=== PATIENT | male | born 1940 | race Caucasian/White ===

== ENCOUNTER 2019-12-06 11:48 | Observation (INO) ==
[2019-12-06] MEDS ORDERED: SODIUM CHLORIDE 0.9% 500 ML IV ONE (12:02)
[2019-12-06] MEDS ORDERED: ONDANSETRON INJ 2 MG/ML 2 ML VIAL IV STA (12:08)
--- NOTE | 2019-12-06 12:12 | Emergency Department Note ---
ED Provider Note NAME: MARIELA DE LEON Jr AGE: 79 SEX: M : 1940 ARRIVES VIA: Ambulance INFORMANT: [ems, nurses] ED PROVIDER(S): [David Zamora MD] CHIEF COMPLAINT: Syncope and collapse HISTORY OF PRESENT ILLNESS: The patient is a 79-year-old male with severe dementia. He is not verbal at baseline. As per EMS, he was walking down a hallway and collapsed. There may have been a short seizure-like event. He definitely was unresponsive for a period of time, described as less than a minute. There was a time when he was not breathing, described as seconds. No CPR was initiated. As per EMS, the patient vomited around [address] to the ED. They gave 4 mg of IV Zofran. He received 200 cc of IV saline. No further history obtainable as the patient is nonverbal with an altered mental status. REVIEW OF SYSTEMS: Unobtainable given the mental state and confusion. PMHx/PSHx: See Below SOCIAL HISTORY: See Below. PHYSICAL EXAM: GENERAL: Patient is in mild distress, seems anxious. HEENT: No acute trauma, normocephalic atraumatic, mucous membranes moist, no nasal congestion, no scleral icterus. Pupils equal and reactive to light. NECK: No stridor, no adenopathy, no cervical spine step-off, trachea is midline. LUNGS: Clear to auscultation bilaterally, no wheeze, no rhonchi, breath sounds equal. HEART: Without murmurs gallops or rubs, regular rate and rhythm. ABDOMEN: Soft, nontender, bowel sounds positive, no hernias, no peritonitis. EXTREMITIES: No cyanosis or edema, full range of motion of all the joints without pain or difficulty, no signs for acute trauma. NEUROLOGIC: Nonverbal, moves all extremities, he does reach for his blanket and tries to pull the blanket up as a cover. Responds to pain. SKIN: No rash, no jaundice, no diaphoresis. DIFFERENTIAL DIAGNOSIS: Infection, dehydration, metabolic abnormality, hypo/hyperglycemia, electrolyte disturbance, anemia, hypoxia, cardiac sources, intracerebral event, toxicologic, neurologic, intracranial bleeding, C-spine injury, seizure, as well as other pathologies. EMERGENCY DEPARTMENT COURSE/PROCEDURES: ECG: Indication was syncope. There is a normal sinus rhythm with a rate of 60 . The QTc is 438. There is no ST elevation, no PVCs. Continuous Cardiac Monitoring: An order was placed for continuous cardiac monitoring. The monitor shows a rate of 78 with normal sinus rhythm. MEDICAL DECISION MAKING: There is no leukocytosis. The patient has a very mild anemia at 12.2. No coagulopathy. No significant electrolyte abnormality or kidney failure. No concerning liver enzyme elevation. Lactic acid level and procalcitonin levels were both normal making sepsis less likely. Urinalysis did not show infection. Influenza testing was negative. Chest film did not show pneumonia. Brain CT showed no acute bleed or mass-effect. C-spine CT showed no acute fracture. EKG showed a normal sinus rhythm, no acute ischemia. Cardiac enzyme testing x1 is not consistent with acute cardiac injury. The patient was given 1.5 L of IV saline. He was given IV Zofran for nausea. Patient is awake, he is not nonverbal. When he first arrived, he was somewhat sleepy, this has resolved. At this point it is unclear if the patient suffered a syncopal event, a seizure or just collapsed. There was some questionable loss of breathing for a short period of time. Given the sleepiness upon arrival which seems to have cleared, a postictal phase is possible. Given the unknowns, given the syncope and collapse, hospitalization was felt warranted. The cause for his presentation is unclear. I did speak to case management team, I talked with the on-call hospitalist. There was no family at the bedside to discuss results. The patient is severely demented and did not understand his testing results. 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 Beliefs That Will Affect Care: None Current Living Situation: Personal Care Facility Current Living Situation Comment: [place] Other Information That Helps Us Care for You: No Feels Safe at Home: Yes Safety Concerns: Feels Safe At This Time Smoking Status: Never smoker Do You Dip or Chew Tobacco: No ; Second Hand Exposure: No ; Tobacco Cessation Education Requested by Patient: No Hx Alcohol Use: No Hx Substance Use: No Results & Data (ED) Vital Signs Vital Signs - 24 hr 12/06/19 11:53 12/06/19 11:59 12/06/19 12:00 Temperature Temperature Source Pulse Rate 63 62 59 L Pulse Rate from SpO2 Sensor 62 61 59 L Pulse Rhythm Pulse Strength Respiratory Rate 21 23 23 Respiratory Effort / Characteristics Respiratory Depth Respiratory Pattern Blood Pressure 106/45 L 98/49 L Blood Pressure Mean 62 72 Pulse Oximetry 97 97 95 Oxygen Delivery Method Sepsis Recent Fever Within 48 Hours Sepsis Action Taken by Nursing 12/06/19 12:01 12/06/19 12:21 12/06/19 12:28 Temperature 36.9 C Temperature Source Oral Pulse Rate 60 59 L 69 Pulse Rate from SpO2 Sensor 60 58 L Pulse Rhythm Regular Pulse Strength Normal Respiratory Rate 24 19 18 Respiratory Effort / Characteristics Non-Labored Spontaneous Respiratory Depth Normal Respiratory Pattern Regular Blood Pressure 107/53 L 124/56 L Blood Pressure Mean 78 78 Pulse Oximetry 97 97 99 Oxygen Delivery Method Room Air Room Air Sepsis Recent Fever Within 48 Hours No Sepsis Action Taken by Nursing No Action Required 12/06/19 12:30 12/06/19 12:31 12/06/19 13:00 Temperature Temperature Source Pulse Rate 62 74 67 Pulse Rate from SpO2 Sensor 62 64 68 Pulse Rhythm Pulse Strength Respiratory Rate 19 22 18 Respiratory Effort / Characteristics Respiratory Depth Respiratory Pattern Blood Pressure 124/56 L 109/56 L Blood Pressure Mean 90 82 Pulse Oximetry 98 96 95 Oxygen Delivery Method Room Air Room Air Sepsis Recent Fever Within 48 Hours Sepsis Action Taken by Nursing 12/06/19 13:01 12/06/19 13:30 12/06/19 13:31 Temperature Temperature Source Pulse Rate 66 75 78 Pulse Rate from SpO2 Sensor 67 75 78 Pulse Rhythm Pulse Strength Respiratory Rate 17 19 19 Respiratory Effort / Characteristics Respiratory Depth Respiratory Pattern Blood Pressure 125/58 L Blood Pressure Mean 87 Pulse Oximetry 96 98 99 Oxygen Delivery Method Room Air Sepsis Recent Fever Within 48 Hours Sepsis Action Taken by Nursing 12/06/19 14:00 Temperature Temperature Source Pulse Rate Pulse Rate from SpO2 Sensor 96 H Pulse Rhythm Pulse Strength Respiratory Rate Respiratory Effort / Characteristics Respiratory Depth Respiratory Pattern Blood Pressure Blood Pressure Mean Pulse Oximetry 90 Oxygen Delivery Method Sepsis Recent Fever Within 48 Hours Sepsis Action Taken by Assisted Medications Current Medication List: was personally reviewed by me Laboratory Data Attestation: I reviewed the patient's lab results. Result diagrams: 12/06/19 12:07 12/06/19 12:07 Lab Results 12/06/19 12/06/19 12/06/19 Range/Units 12:07 12:07 12:07 WBC 10.15 (4.8-10.8) K/uL RBC 3.89 L (4.7-6.1) M/uL Hgb 12.2 L (14.0-18.0) g/dL Hct 36.5 L (42-52) % MCV 93.8 (80-100) fL MCH 31.4 (25-34) pg MCHC 33.4 (32-36) g/dL RDW Std Deviation 43.6 (36.4-46.3) fL RDW Coeff of Ashkan 12.8 (11.5-14.5) % Plt Count 301 (130-400) K/uL MPV 9.5 (7.4-10.4) fL Immature Gran % (Auto) 0.3 % Neut % (Auto) 60.8 % Lymph % (Auto) 26.0 % [place] % (Auto) 9.1 % Eos % (Auto) 3.4 % Baso % (Auto) 0.4 % Immature Gran # (Auto) 0.03 H (0.00-0.02) K/uL Neut # (Auto) 6.17 (1.4-6.5) K/uL Lymph # (Auto) 2.64 (1.2-3.4) K/uL [place] # (Auto) 0.92 H (0.11-0.59) K/uL Eos # (Auto) 0.35 (0-0.5) K/uL Baso # (Auto) 0.04 (0-0.2) K/uL PT 10.6 (9.0-12.0) Seconds INR 1.0 (0.9-1.1) APTT 23.1 (21.0-31.0) Seconds PTT Ratio 0.8 Sodium 141 (136-145) mmol/L Potassium 3.7 (3.5-5.1) mmol/L Chloride 109 H (98-107) mmol/L Carbon Dioxide 27 (21-32) mmol/L Anion Gap 5.0 (3-11) BUN 20 H (7-18) mg/dl Creatinine 1.06 (0.6-1.4) mg/dl Est Cr Clr Drug Dosing Not Reportable Est GFR ( Amer) 78.1 Est GFR (Non-Af Amer) 67.4 BUN/Creatinine Ratio 18.5 (10-20) Glucose 108 H (70-99) mg/dl Lactate (0.4-2.0) mmol/L Calcium 8.8 (8.5-10.1) mg/dl Magnesium 2.5 H (1.8-2.4) mg/dl Total Bilirubin 0.6 (0.2-1) mg/dl AST 13 L (15-37) U/L ALT 11 L (12-78) U/L Alkaline Phosphatase 64 (45-117) U/L Troponin I < 0.015 (0-0.045) ng/ml Total Protein 6.9 (6.4-8.2) gm/dl Albumin 3.7 (3.4-5.0) gm/dl Globulin 3.2 (2.5-4.0) gm/dl Albumin/Globulin Ratio 1.2 (0.9-2) Procalcitonin (0-0.5) ng/ml Urine Color Urine Appearance (Clear) Urine pH (4.5-7.5) Ur Specific Mead (1.000-1.030) Urine Protein (Negative) Urine Glucose (UA) (Negative) Urine Ketones (Negative) Urine Blood (Negative) Urine Nitrite (Negative) Urine Bilirubin (Negative) Urine Urobilinogen (Negative) Ur Leukocyte Esterase (Negative) Influenza Type A (PCR) (Neg) Influenza Type B (PCR) (Neg) 12/06/19 12/06/19 12/06/19 Range/Units 12:07 12:07 12:22 WBC (4.8-10.8) K/uL RBC (4.7-6.1) M/uL Hgb (14.0-18.0) g/dL Hct (42-52) % MCV (80-100) fL MCH (25-34) pg MCHC (32-36) g/dL RDW Std Deviation (36.4-46.3) fL RDW Coeff of Ashkan (11.5-14.5) % Plt Count (130-400) K/uL MPV (7.4-10.4) fL Immature Gran % (Auto) % Neut % (Auto) % Lymph % (Auto) % [place] % (Auto) % Eos % (Auto) % Baso % (Auto) % Immature Gran # (Auto) (0.00-0.02) K/uL Neut # (Auto) (1.4-6.5) K/uL Lymph # (Auto) (1.2-3.4) K/uL [place] # (Auto) (0.11-0.59) K/uL Eos # (Auto) (0-0.5) K/uL Baso # (Auto) (0-0.2) K/uL PT (9.0-12.0) Seconds INR (0.9-1.1) APTT (21.0-31.0) Seconds PTT Ratio Sodium (136-145) mmol/L Potassium (3.5-5.1) mmol/L Chloride (98-107) mmol/L Carbon Dioxide (21-32) mmol/L Anion Gap (3-11) BUN (7-18) mg/dl Creatinine (0.6-1.4) mg/dl Est Cr Clr Drug Dosing Est GFR ( Amer) Est GFR (Non-Af Amer) BUN/Creatinine Ratio (10-20) Glucose (70-99) mg/dl Lactate 1.8 (0.4-2.0) mmol/L Calcium (8.5-10.1) mg/dl Magnesium (1.8-2.4) mg/dl Total Bilirubin (0.2-1) mg/dl AST (15-37) U/L ALT (12-78) U/L Alkaline Phosphatase (45-117) U/L Troponin I (0-0.045) ng/ml Total Protein (6.4-8.2) gm/dl Albumin (3.4-5.0) gm/dl Globulin (2.5-4.0) gm/dl Albumin/Globulin Ratio (0.9-2) Procalcitonin < 0.05 (0-0.5) ng/ml Urine Color Urine Appearance (Clear) Urine pH (4.5-7.5) Ur Specific [place] (1.000-1.030) Urine Protein (Negative) Urine Glucose (UA) (Negative) Urine Ketones (Negative) Urine Blood (Negative) Urine Nitrite (Negative) Urine Bilirubin (Negative) Urine Urobilinogen (Negative) Ur Leukocyte Esterase (Negative) Influenza Type A (PCR) Neg for Influ A (Neg) Influenza Type B (PCR) Neg for Influ B (Neg) 12/06/19 Range/Units 12:35 WBC (4.8-10.8) K/uL RBC (4.7-6.1) M/uL Hgb (14.0-18.0) g/dL Hct (42-52) % MCV (80-100) fL MCH (25-34) pg MCHC (32-36) g/dL RDW Std Deviation (36.4-46.3) fL RDW Coeff of Ashkan (11.5-14.5) % Plt Count (130-400) K/uL MPV (7.4-10.4) fL Immature Gran % (Auto) % Neut % (Auto) % Lymph % (Auto) % [place] % (Auto) % Eos % (Auto) % Baso % (Auto) % Immature Gran # (Auto) (0.00-0.02) K/uL Neut # (Auto) (1.4-6.5) K/uL Lymph # (Auto) (1.2-3.4) K/uL [place] # (Auto) (0.11-0.59) K/uL Eos # (Auto) (0-0.5) K/uL Baso # (Auto) (0-0.2) K/uL PT (9.0-12.0) Seconds INR (0.9-1.1) APTT (21.0-31.0) Seconds PTT Ratio Sodium (136-145) mmol/L Potassium (3.5-5.1) mmol/L Chloride (98-107) mmol/L Carbon Dioxide (21-32) mmol/L Anion Gap (3-11) BUN (7-18) mg/dl Creatinine (0.6-1.4) mg/dl Est Cr Clr Drug Dosing Est GFR ( Amer) Est GFR (Non-Af Amer) BUN/Creatinine Ratio (10-20) Glucose (70-99) mg/dl Lactate (0.4-2.0) mmol/L Calcium (8.5-10.1) mg/dl Magnesium (1.8-2.4) mg/dl Total Bilirubin (0.2-1) mg/dl AST (15-37) U/L ALT (12-78) U/L Alkaline Phosphatase (45-117) U/L Troponin I (0-0.045) ng/ml Total Protein (6.4-8.2) gm/dl Albumin (3.4-5.0) gm/dl Globulin (2.5-4.0) gm/dl Albumin/Globulin Ratio (0.9-2) Procalcitonin (0-0.5) ng/ml Urine Color Yellow Urine Appearance Clear (Clear) Urine pH 6.0 (4.5-7.5) Ur Specific [place] 1.025 (1.000-1.030) Urine Protein Negative (Negative) Urine Glucose (UA) Negative (Negative) Urine Ketones Trace H (Negative) Urine Blood Negative (Negative) Urine Nitrite Negative (Negative) Urine Bilirubin Negative (Negative) Urine Urobilinogen Negative (Negative) Ur Leukocyte Esterase Negative (Negative) Influenza Type A (PCR) (Neg) Influenza Type B (PCR) (Neg) Administered Medications Discontinued Medications Sodium Chloride (Nss) 500 mls @ 999 mls/hr IV .Q31M ONE Stop: 12/06/19 12:32 Last Infusion: 12/06/19 13:17 Dose: 0 mls/hr Documented by: [id number] Admin: 12/06/19 12:28 Dose: 999 mls/hr Documented by: [id number] Sodium Chloride (Nss 1000ml) 1,000 mls @ 999 mls/hr IV .Q1H1M ONE Stop: 12/06/19 14:18 Last Infusion: 12/06/19 14:54 Dose: 0 mls/hr Documented by: [id number] Admin: 12/06/19 13:30 Dose: 999 mls/hr Documented by: [id number] Ondansetron HCl (Zofran) 4 mg IV NOW STA Stop: 12/06/19 12:09 Last Admin: 12/06/19 12:28 Dose: 4 mg Documented by: [id number] Imaging Data Radiologist's Impression: XR chest 1V portable HISTORY: SEPSIS COMPARISON: Chest CT 05/27/2019. FINDINGS: No pneumothorax. No pleural effusions. The heart is normal in size. There are low lung volumes. No focal lung consolidations to suggest pneumonia. No evidence for pulmonary edema. Questional increased markings within the left lung base may be due to vascular crowding/dependent change from the low lung volumes. IMPRESSION: Low lung volumes. Otherwise, no acute process within the chest. HEAD CT NONCONTRAST CT DOSE: 955.57 mGy.cm HISTORY: confusion, fall TECHNIQUE: Multiaxial CT images of the head were performed without the use of intravenous contrast. Automated exposure control was utilized for this study. A dose lowering technique was utilized adhering to the principles of ALARA. Comparison: Head CT 09/10/2019. Findings: Near complete opacification of the right sphenoid sinus with an associated fluid level. This has progressed in the interval. The mastoid air lynne ls are clear. The calvarium and skull base are intact. There is no mass, hematoma, midline shift, acute infarct. White matter hypodensity is nonspecific but suggestive of microvascular ischemic change. The ventricles and sulci demonstrate mild age-related involutional changes. 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 Impression: 1. No acute intracranial abnormality. 2. Acute right sphenoid sinusitis. This has progressed in the interval. CT cervical spine wo con CLINICAL HISTORY: 79 years-old Male presenting with fall, confusion. TECHNIQUE: Multidetector CT of the cervical spine was performed without the use of intravenous contrast. IV contrast: None. One or more dose lowering techniques were used consistent with the principles of ALARA (as low as reasonably achievable), including automatic exposure control, mA or kV adjustment to individual patient size, and/or use of iterative reconstruction. COMPARISON: 09/10/2019. CT DOSE (mGy.cm): The estimated cumulative dose is 955.57. FINDINGS: Lumber Scaler topogram: Unremarkable. Straightening of normal cervical lordosis likely due to multilevel degenerative changes. Trace anterolisthesis of C4 on C5. 3 mm of grade 1 anterolisthesis of C5 on C6. Alignment is unchanged. Vertebral body heights maintained. Multilevel intervertebral disc height loss, which is moderate to severe at several levels. Disc osteophyte complexes noted to varying degrees at nearly every level. Overall mild posterior spondylitic spurring is noted. Facet arthropathy and uncovertebral hypertrophy result in varying degrees of osseous neural foraminal narrowing. Mild degenerative changes of the atlantodental articulation. Visualized portion of the skull base intact. Prominent cerumen noted in the external auditory canals. Lung apices clear. Paraspinal soft tissues within normal limits. IMPRESSION: 1. No acute osseous injury of the cervical spine. 2. Multilevel degenerative changes. Blood Pressure Blood Pressure Findings: Elevated blood pressure Blood Pressure Disposition: further management by hospitalist Discharge Plan Visit Data *Final* Discharge Date/Time: 12/06/19 15:07 Chief Complaint: Seizure ED Provider: David Zamora Discharge Problem: Syncope, Collapse, Altered mental status, Vomiting Patient Disposition: Admitted As Inpatient Discharge Instructions Interventions: ED Discharge Assessment Last Done: 12/06/19 15:07 Discharge Problem: Syncope Qualifiers: Syncope type: unspecified Qualified Code(s): R55 - Syncope and collapse Altered mental status Qualifiers: Altered mental status type: unspecified Qualified Code(s): R41.82 - Altered mental status, unspecified Vomiting Qualifiers: Vomiting type: unspecified Vomiting Intractability: non-intractable Nausea presence: unspecified Qualified Code(s): R11.10 - Vomiting, unspecified
[2019-12-06 12:17] LABS: Basophils # (auto) 0.04 K/uL (0-0.2); Basophils % (auto) 0.4 %; Eosinophils # (auto) 0.35 K/uL (0-0.5); Eosinophils % (auto) 3.4 %; Hematocrit (blood only) 36.5 % (42-52); Hemoglobin 12.2 g/dL (14.0-18.0); Immature Granulocytes # (auto) 0.03 K/uL (0.00-0.02); Immature Granulocytes % (auto) 0.3 %; Lymphocytes # (auto) 2.64 K/uL (1.2-3.4); Mean Corpuscular Hemoglobin 31.4 pg (25-34); Mean Corpuscular Hgb Conc 33.4 g/dL (32-36); Mean Corpuscular Volume 93.8 fL (80-100); Mean Platelet Volume 9.5 fL (7.4-10.4); Monocytes # (auto) 0.92 K/uL (0.11-0.59); Monocytes % (auto) 9.1 %; Neutrophils # (auto) 6.17 K/uL (1.4-6.5); Neutrophils % (auto) 60.8 %; Platelet Count 301 K/uL (130-400); RDW Coefficient of Variation 12.8 % (11.5-14.5); RDW Standard Deviation 43.6 fL (36.4-46.3); Red Blood Count 3.89 M/uL (4.7-6.1); White Blood Count 10.15 K/uL (4.8-10.8)
[2019-12-06 12:33] LABS: Alanine Aminotransferase 11 U/L (12-78); Albumin Level 3.7 gm/dl (3.4-5.0); Aspartate Aminotransferase 13 U/L (15-37); BUN Creatinine Ratio 18.5 (10-20); Blood Urea Nitrogen 20 mg/dl (7-18); Calcium 8.8 mg/dl (8.5-10.1); Carbon Dioxide 27 mmol/L (21-32); Chloride 109 mmol/L (98-107); Est GFR (African American) 78.1; Est GFR (Non-African American) 67.4; Glucose 108 mg/dl (70-99); Magnesium 2.5 mg/dl (1.8-2.4); Potassium 3.7 mmol/L (3.5-5.1); Sodium 141 mmol/L (136-145)
[2019-12-06 12:37] LABS: Partial Thromboplastin Ratio 0.8; Partial Thromboplastin Time 23.1 Seconds (21.0-31.0); Prothrombin Time 10.6 Seconds (9.0-12.0)
[2019-12-06 12:38] LABS: Albumin Globulin Ratio 1.2 (0.9-2); Alkaline Phosphatase 64 U/L (45-117); Bilirubin,Total 0.6 mg/dl (0.2-1); Globulin 3.2 gm/dl (2.5-4.0); Total Protein 6.9 gm/dl (6.4-8.2); Troponin I < 0.015 ng/ml (0-0.045)
--- NOTE | 2019-12-06 12:39 | XRay Report ---
XR chest 1V portable HISTORY: SEPSIS COMPARISON: Chest CT 05/27/2019. FINDINGS: No pneumothorax. No pleural effusions. The heart is normal in size. There are low lung volu mes. No focal lung consolidations to suggest pneumonia. No evidence for pulmonary edema. Questional i ncreased markings within the left lung base may be due to vascular crowding/dependent change from the low lung volumes. IMPRESSION: Low lung volumes. Otherwise, no acute process within the chest. ACT 112: Negative or not required by law. Electronically signed by: Mike Hudson M.D. 12/06/2019 12:37 PM
--- NOTE | 2019-12-06 12:52 | CT Scan Report ---
HEAD CT NONCONTRAST CT DOSE: 955.57 mGy.cm HISTORY: confusion, fall TECHNIQUE: Multiaxial CT images of the head were performed without the use of intravenous contrast. A utomated exposure control was utilized for this study. A dose lowering technique was utilized adheri ng to the principles of ALARA. Comparison: Head CT 09/10/2019. Findings: Near complete opacification of the right sphenoid sinus with an associated fluid level. Thi s has progressed in the interval. The mastoid air cells are clear. The calvarium and skull base are i ntact. There is no mass, hematoma, midline shift, acute infarct. White matter hypodensity is nonspeci fic but suggestive of microvascular ischemic change. The ventricles and sulci demonstrate mild age-re lated involutional changes. 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 Impression: 1. No acute intracranial abnormality. 2. Acute right sphenoid sinusitis. This has progressed in the interval. ACT 112: Negative or not required by law. Electronically signed by: Mike Hudson M.D. 12/06/2019 12:50 PM
--- NOTE | 2019-12-06 12:54 | CT Scan Report ---
CT cervical spine wo con CLINICAL HISTORY: 79 years-old Male presenting with fall, confusion. TECHNIQUE: Multidetector CT of the cervical spine was performed without the use of intravenous contra st. IV contrast: None. One or more dose lowering techniques were used consistent with the principles of ALARA (as low as reasonably achievable), including automatic exposure control, mA or kV adjustment to individual patient size, and/or use of iterative reconstruction. COMPARISON: 09/10/2019. CT DOSE (mGy.cm): The estimated cumulative dose is 955.57. FINDINGS: Curtain Cutter topogram: Unremarkable. Straightening of normal cervical lordosis likely due to multilevel degenerative changes. Trace glory listhesis of C4 on C5. 3 mm of grade 1 anterolisthesis of C5 on C6. Alignment is unchanged. Vertebral body heights maintained. Multilevel intervertebral disc height loss, which is moderate to severe at several levels. Disc osteophyte complexes noted to varying degrees at nearly every level. Overall mil d posterior spondylitic spurring is noted. Facet arthropathy and uncovertebral hypertrophy result in varying degrees of osseous neural foraminal narrowing. Mild degenerative changes of the atlantodental articulation. Visualized portion of the skull base intact. Prominent cerumen noted in the external a uditory canals. Lung apices clear. Paraspinal soft tissues within normal limits. IMPRESSION: 1. No acute osseous injury of the cervical spine. 2. Multilevel degenerative changes. ACT 112: Negative or not required by law. Electronically signed by: Antonino Bob M.D. 12/06/2019 12:52 PM
[2019-12-06 13:14] LABS: Influenza A virus by PCR Neg for Influ A (Neg); Influenza B virus by PCR Neg for Influ B (Neg)
[2019-12-06 13:15] LABS: Appearance Urine Clear (Clear); Bilirubin Urine Negative (Negative); Blood Urine Negative (Negative); Color Urine Yellow; Glucose Urine UA Negative (Negative); Ketones Urine Trace (Negative); Leukocyte Esterase Urine Negative (Negative); Nitrite Urine Negative (Negative); Protein Urine Negative (Negative); Specific Gravity Urine 1.025 (1.000-1.030); Urobilinogen Urine Negative (Negative)
[2019-12-06] MEDS ORDERED: SODIUM CHLORIDE 0.9% 1000ML 1,000 ML IV ONE (13:18)
--- NOTE | 2019-12-06 14:32 | Electrocardiogram Report ---
Test Reason : Blood Pressure : / mmHG Vent. Rate : 060 BPM Atrial Rate : 060 BPM P-R Int : 160 ms QRS Dur : 080 ms QT Int : 438 ms P-R-T Axes : 069 047 056 degrees QTc Int : 438 ms Normal sinus rhythm Normal ECG When compared with ECG of 16-AUG-2019 10:40, No significant change was found Confirmed by Jason Ceja [id number]) on 12/06/2019 2:32:13 PM Referred By: Confirmed By:Scar Ceja
[2019-12-06] MEDS ORDERED: PNEUMOCOCCAL POLYSACCHARIDES 25 MCG/0.5 ML VIAL/SYR IM ONE (14:41)
[2019-12-06] MEDS ORDERED: PNEUMOCOCCAL ADMINISTRATION CHARGE ONE (14:41)
[2019-12-06] MEDS ORDERED: INFLUENZA ADMINISTRATION CHARGE ONE (14:41)
[2019-12-06] MEDS ORDERED: INFLUENZA VACCINE HIGH DOSE 65+ 0.5 ML SYR IM ONE (14:41)
--- NOTE | 2019-12-06 14:50 | History & Physical Report ---
Date of Service December 06, 2019 Assessment & Plan (1) Acute metabolic encephalopathy: - Presented with increased confusion & fall/collapse at [facility]. - U/a negative; BC pending. - CXR and CT cervical spine negative. - Head CT did show sinusitis -- starting IV abx as noted below; brain MRI is pending. - B1/Folate level in the morning. (2) Collapse: - Possibly related to syncopal episode in setting of dehydration vs. cardiac source vs. seizure activity vs. CVA vs. orthostatic hypotension. - Head CT negative, brain MRI pending to evaluate for brain filemon vs. CVA vs. other. - Trend trop q6hr to evaluate for cardiac source; limited echo also pending to evaluate for valvular abnormalities, wall motion abnormalities. - Will consult neuro, consider addition of EEG. - H/o orthostasis -- orthostatic vital signs pending. - IV fluids at 80 cc/hr (low threshold to d/c if TTE shows evidence of CHF) - PT/OT/Speech therapy evaluation. - Non-verbal at baseline in setting of dementia, therefore it is very difficult to obtain accurate history or R.O.S. (3) Dementia: - Parkinson's related dementia; his reports he will intermittently answer questions appropriately but is nonverbal for the most part at [facility]. - Continue Aricept, Sinemet and Pimavanserin (non-formulary, will need to bring from [place]) as prescribed. - Re-orient frequently; will likely develop acute hospital delirium during this admission. (4) Sinusitis: - Acute right sphenoid sinusitis noted on CT head. - Will start Ceftriaxone IV for empiric coverage. (5) Prostate cancer: - H/o prostate cancer, lung metastasis. - Follows with urology, s/p GnRH agonists, radiation therapy and XRT in 2009. - Continue Bicalutamide daily as prescribed. Also receives Eligard injections [id number]. (6) Hyperlipidemia: - Continue Pravastatin & ASA as prescribed. (7) Anemia: - Hgb baseline ~12. - Monitor CBC daily. (8) Dehydration: - Elevated BUN noted on discharge. - NS at 80 cc/hr; also received IV fluids in the ER. - Repeat BMP daily. (9) DVT prophylaxis: - SCDs; hold pharmacologic ppx due to recent fall. Dispo: Med/surg with tele; discharge pending work up as noted above. History of Present Illness Chief Complaint: Confusion, fall Primary Care Provider: [facility] Mr. Bender is a 79 year old male who resides at [facility]; he presented following a fall this morning. Patient has baseline dementia and is non-verbal, therefore he cannot provide history. Per ER physician, he had multiple witnesses at [facility] but they were mostly other residents. Discussed episode with nursing instructor at [facility]. Patient was noted to have stiffening of his body, therefore nurses lowered him to the ground in the common lounge. He developed seizure like activity (shaking of entire body) after being lowered to the ground and was not breathing for a period of 10 seconds. He was flipped onto his back and started breathing again. Patient developed nausea/vomiting following episode. EMS was called for evaluation; he did have vomiting in the ambulance during transport. Patient was very lethargic during transport but is now alert, not oriented (baseline for him). ER course: CXR, Head CT and Cervical spine CT were all negative. Lab work showed mild dehydration. Trop was negative along with EKG for possible ischemia. Procal was <0.05. U/a negative for infection. Blood cultures are pending. He will be admitted for evaluation of altered mental status with possible fall/syncopal episode. Allergies Allergy/AdvReac Type Severity Reaction Status Date / Time No Known Allergies Allergy Verified 11/07/19 11:55 Home Medications Home Medications Medication Instructions Recorded Confirmed Type aspirin 81 mg tablet,delayed 81 mg PO PM tab 05/28/19 12/06/19 History release cholecalciferol (vitamin D3) 25 1,000 units PO QAM cap 05/28/19 12/06/19 History mcg (1,000 unit) capsule cyanocobalamin (vitamin B-12) 1,000 mcg PO QAM #90 tab 05/28/19 12/06/19 History 1,000 mcg tablet metronidazole 0.75 % topical cream 1 appln TOP QAM 05/28/19 12/06/19 History pimavanserin 34 mg capsule 34 mg PO QAM 05/28/19 12/06/19 History pravastatin 40 mg tablet 40 mg PO PM tab 05/28/19 12/06/19 History psyllium husk 3.4 gram/5.4 gram 3.4 g PO QAM gm 05/28/19 12/06/19 History oral powder carbidopa 25 mg-levodopa 100 mg 1.5 tab PO TID 90 Days #405 tab 07/08/19 12/06/19 Rx tablet acetaminophen 500 mg tablet 500 - 1,000 mg PO TID PRN #90 tab 08/05/19 12/06/19 Rx bicalutamide 50 mg PO QAM 08/16/19 12/06/19 History pramipexole 1.5 mg PO QAM 08/16/19 12/06/19 History donepezil [Aricept] 5 mg PO HS 12/06/19 12/06/19 History Past Med/Surg History Medical History (Updated 12/06/19 @ 15:50 by Leslie Sy PA-C) Arthritis (Acute) Dementia (Acute) Hyperlipidemia (Chronic) Lung cancer (Acute) Parkinson's disease (Chronic) Prostate cancer (Acute) Rosacea (Acute) Secondary cancer of lung (Acute) Urinary incontinence (Acute) Vision problem (Acute) Surgical History (Updated 12/07/19 @ 00:54 by Hanny Navarro MD) History of appendectomy History of cataract surgery History of cholecystectomy History of hernia repair History of intestinal surgery Family History Mother Diabetes Cardiac disorder Gallbladder disease Father Cardiac disorder Diabetes Sister Hypertension Colon cancer Social History Preferred Language: Kazakh Communication Ability: nonverbal Substance Abuse Services Director Required: No Beliefs That Will Affect Care: None Current Living Situation: Personal Care Facility Current Living Situation Comment: [facility] Other Information That Helps Us Care for You: No Feels Safe at Home: Yes Safety Concerns: Feels Safe At This Time Smoking Status: Never smoker Do You Dip or Chew Tobacco: No ; Second Hand Exposure: No ; Tobacco Cessation Education Requested by Patient: No Hx Alcohol Use: No Hx Substance Use: No Review of Systems Review of Systems: Unobtainable due to cognitive status Physical Exam Physical Exam: General: Chronically ill appearing elderly male, in no acute distress. HEENT: NC/AT; PERRLA with EOMI; [place] conjunctiva, MMM. No erythema of posterior pharynx Neck: Supple and nontender Cardiac: Tachycardic Lungs: CTA bilaterally Abdomen: Bowel normoactive X 4; Nontender to palpation Rectal: Deferred : Deferred Back: NO spinous tenderness Extremities: Warm. No edema present Neuro: Alert but not oriented to person or place; is nonverbal. Cannot complete full neuro exam. Skin: No rash Results & Data Vital Signs (Past 12 Hours) Vital Signs Temp Pulse Resp BP Pulse Ox 12/06/19 14:00 90 12/06/19 13:31 78 19 99 12/06/19 13:30 75 19 125/58 L 98 12/06/19 13:01 66 17 96 12/06/19 13:00 67 18 109/56 L 95 12/06/19 12:31 74 22 96 12/06/19 12:30 62 19 124/56 L 98 12/06/19 12:28 36.9 C 69 18 124/56 L 99 12/06/19 12:21 59 L 19 107/53 L 97 12/06/19 12:01 60 24 97 12/06/19 12:00 59 L 23 98/49 L 95 12/06/19 11:59 62 23 97 12/06/19 11:53 63 21 106/45 L 97 Laboratory Results 12/06/19 12/06/19 12/06/19 Range/Units 12:35 12:22 12:07 WBC (4.8-10.8) K/uL RBC (4.7-6.1) M/uL Hgb (14.0-18.0) g/dL Hct (42-52) % MCV (80-100) fL MCH (25-34) pg MCHC (32-36) g/dL RDW Std Deviation (36.4-46.3) fL RDW Coeff of Ashkan (11.5-14.5) % Plt Count (130-400) K/uL MPV (7.4-10.4) fL Immature Gran % (Auto) % Neut % (Auto) % Lymph % (Auto) % [place] % (Auto) % Eos % (Auto) % Baso % (Auto) % Immature Gran # (Auto) (0.00-0.02) K/uL Neut # (Auto) (1.4-6.5) K/uL Lymph # (Auto) (1.2-3.4) K/uL [place] # (Auto) (0.11-0.59) K/uL Eos # (Auto) (0-0.5) K/uL Baso # (Auto) (0-0.2) K/uL PT (9.0-12.0) Seconds INR (0.9-1.1) APTT (21.0-31.0) Seconds PTT Ratio Sodium (136-145) mmol/L Potassium (3.5-5.1) mmol/L Chloride (98-107) mmol/L Carbon Dioxide (21-32) mmol/L Anion Gap (3-11) BUN (7-18) mg/dl Creatinine (0.6-1.4) mg/dl Est Cr Clr Drug Dosing Est GFR ( Amer) Est GFR (Non-Af Amer) BUN/Creatinine Ratio (10-20) Glucose (70-99) mg/dl Lactate (0.4-2.0) mmol/L Calcium (8.5-10.1) mg/dl Magnesium (1.8-2.4) mg/dl Total Bilirubin (0.2-1) mg/dl AST (15-37) U/L ALT (12-78) U/L Alkaline Phosphatase (45-117) U/L Troponin I (0-0.045) ng/ml Total Protein (6.4-8.2) gm/dl Albumin (3.4-5.0) gm/dl Globulin (2.5-4.0) gm/dl Albumin/Globulin Ratio (0.9-2) Procalcitonin < 0.05 (0-0.5) ng/ml Urine Color Yellow Urine Appearance Clear (Clear) Urine pH 6.0 (4.5-7.5) Ur Specific [place] 1.025 (1.000-1.030) Urine Protein Negative (Negative) Urine Glucose (UA) Negative (Negative) Urine Ketones Trace H (Negative) Urine Blood Negative (Negative) Urine Nitrite Negative (Negative) Urine Bilirubin Negative (Negative) Urine Urobilinogen Negative (Negative) Ur Leukocyte Esterase Negative (Negative) Influenza Type A (PCR) Neg for Influ A (Neg) Influenza Type B (PCR) Neg for Influ B (Neg) 12/06/19 12/06/19 12/06/19 Range/Units 12:07 12:07 12:07 WBC (4.8-10.8) K/uL RBC (4.7-6.1) M/uL Hgb (14.0-18.0) g/dL Hct (42-52) % MCV (80-100) fL MCH (25-34) pg MCHC (32-36) g/dL RDW Std Deviation (36.4-46.3) fL RDW Coeff of Ashkan (11.5-14.5) % Plt Count (130-400) K/uL MPV (7.4-10.4) fL Immature Gran % (Auto) % Neut % (Auto) % Lymph % (Auto) % [place] % (Auto) % Eos % (Auto) % Baso % (Auto) % Immature Gran # (Auto) (0.00-0.02) K/uL Neut # (Auto) (1.4-6.5) K/uL Lymph # (Auto) (1.2-3.4) K/uL [place] # (Auto) (0.11-0.59) K/uL Eos # (Auto) (0-0.5) K/uL Baso # (Auto) (0-0.2) K/uL PT 10.6 (9.0-12.0) Seconds INR 1.0 (0.9-1.1) APTT 23.1 (21.0-31.0) Seconds PTT Ratio 0.8 Sodium 141 (136-145) mmol/L Potassium 3.7 (3.5-5.1) mmol/L Chloride 109 H (98-107) mmol/L Carbon Dioxide 27 (21-32) mmol/L Anion Gap 5.0 (3-11) BUN 20 H (7-18) mg/dl Creatinine 1.06 (0.6-1.4) mg/dl Est Cr Clr Drug Dosing Not Reportable Est GFR ( Amer) 78.1 Est GFR (Non-Af Amer) 67.4 BUN/Creatinine Ratio 18.5 (10-20) Glucose 108 H (70-99) mg/dl Lactate 1.8 (0.4-2.0) mmol/L Calcium 8.8 (8.5-10.1) mg/dl Magnesium 2.5 H (1.8-2.4) mg/dl Total Bilirubin 0.6 (0.2-1) mg/dl AST 13 L (15-37) U/L ALT 11 L (12-78) U/L Alkaline Phosphatase 64 (45-117) U/L Troponin I < 0.015 (0-0.045) ng/ml Total Protein 6.9 (6.4-8.2) gm/dl Albumin 3.7 (3.4-5.0) gm/dl Globulin 3.2 (2.5-4.0) gm/dl Albumin/Globulin Ratio 1.2 (0.9-2) Procalcitonin (0-0.5) ng/ml Urine Color Urine Appearance (Clear) Urine pH (4.5-7.5) Ur Specific [place] (1.000-1.030) Urine Protein (Negative) Urine Glucose (UA) (Negative) Urine Ketones (Negative) Urine Blood (Negative) Urine Nitrite (Negative) Urine Bilirubin (Negative) Urine Urobilinogen (Negative) Ur Leukocyte Esterase (Negative) Influenza Type A (PCR) (Neg) Influenza Type B (PCR) (Neg) 12/06/19 Range/Units 12:07 WBC 10.15 (4.8-10.8) K/uL RBC 3.89 L (4.7-6.1) M/uL Hgb 12.2 L (14.0-18.0) g/dL Hct 36.5 L (42-52) % MCV 93.8 (80-100) fL MCH 31.4 (25-34) pg MCHC 33.4 (32-36) g/dL RDW Std Deviation 43.6 (36.4-46.3) fL RDW Coeff of Ashkan 12.8 (11.5-14.5) % Plt Count 301 (130-400) K/uL MPV 9.5 (7.4-10.4) fL Immature Gran % (Auto) 0.3 % Neut % (Auto) 60.8 % Lymph % (Auto) 26.0 % [place] % (Auto) 9.1 % Eos % (Auto) 3.4 % Baso % (Auto) 0.4 % Immature Gran # (Auto) 0.03 H (0.00-0.02) K/uL Neut # (Auto) 6.17 (1.4-6.5) K/uL Lymph # (Auto) 2.64 (1.2-3.4) K/uL [place] # (Auto) 0.92 H (0.11-0.59) K/uL Eos # (Auto) 0.35 (0-0.5) K/uL Baso # (Auto) 0.04 (0-0.2) K/uL PT (9.0-12.0) Seconds INR (0.9-1.1) APTT (21.0-31.0) Seconds PTT Ratio Sodium (136-145) mmol/L Potassium (3.5-5.1) mmol/L Chloride (98-107) mmol/L Carbon Dioxide (21-32) mmol/L Anion [place] (3-11) BUN (7-18) mg/dl Creatinine (0.6-1.4) mg/dl Est Cr Clr Drug Dosing Est GFR ( Amer) Est GFR (Non-Af Amer) BUN/Creatinine Ratio (10-20) Glucose (70-99) mg/dl Lactate (0.4-2.0) mmol/L Calcium (8.5-10.1) mg/dl Magnesium (1.8-2.4) mg/dl Total Bilirubin (0.2-1) mg/dl AST (15-37) U/L ALT (12-78) U/L Alkaline Phosphatase (45-117) U/L Troponin I (0-0.045) ng/ml Total Protein (6.4-8.2) gm/dl Albumin (3.4-5.0) gm/dl Globulin (2.5-4.0) gm/dl Albumin/Globulin Ratio (0.9-2) Procalcitonin (0-0.5) ng/ml Urine Color Urine Appearance (Clear) Urine pH (4.5-7.5) Ur Specific [place] (1.000-1.030) Urine Protein (Negative) Urine Glucose (UA) (Negative) Urine Ketones (Negative) Urine Blood (Negative) Urine Nitrite (Negative) Urine Bilirubin (Negative) Urine Urobilinogen (Negative) Ur Leukocyte Esterase (Negative) Influenza Type A (PCR) (Neg) Influenza Type B (PCR) (Neg) Code Status & VTE Plan Code Status FULL CODE VTE Prophylaxis Plan VTE Prophylaxis will be ordered: Yes Supervising Physician Co-Signing Physician Notes PA Supervision Note: I personally saw and examined the patient. I verified all hebert points and agree with PRIYANKA Sy with the following exceptions and/or additions: Pt admitted after witnessed syncope with possible seizure activity and apnea x 10 sec. Pt non-verbal except some occasional short phrases that are not related to any line of questioning. With severe dementia. History and ROS reviewed Vitals reviewed NAD, alert, awake, not oriented but does respond to name Anicteric sclerae, PERRL RRR no mgr CTAB no wcr Abd +BS soft NT ND Ext no edema, moves all extremities, non-cooperative fo rNeuro exam 79 yo male here with syncope and collapse, less likely seizure. Labs and imaging without anything acute. Discussed brain MRI with later as pt would not hold still and cannot follow direction--> decided against giving ativan or sedation for MRI and will dc MRI brain at this time. Continue obs on tele, IVFs, follow labs Checking ECHO If no arrhythmia or ECHO abnormality or other acute issue, could likely return to [facility] tomorrow Neuro consult placed and appreciate any further reocmmendations PG Care Time/CCT Total # of Minutes Spent Total Time Spent with Patient: Total time spent is greater than 50% in coordination of care (as documented) at patient's floor/unit and/or counseling patient: Coding Level of Care Code 23012 OBS Care - Level 3 Diagnoses Acute metabolic encephalopathy G93.41 Collapse R55 Dementia F03.90 Sinusitis J32.9 Prostate cancer C61 Hyperlipidemia E78.5 Anemia D64.9 Dehydration E86.0 DVT prophylaxis Z29.9
[2019-12-06] MEDS ORDERED: cefTRIAXone SODIUM 1,000 MG in DEXTROSE 5% 50 ML IV SCH (16:00)
[2019-12-06] MEDS ORDERED: ACETAMINOPHEN 325 MG TAB PO PRN (16:14)
[2019-12-06] MEDS ORDERED: ONDANSETRON INJ 2 MG/ML 2 ML VIAL IV PRN (16:14)
[2019-12-06] MEDS: SODIUM CHLORIDE 0.9% 1000ML 1,000 ML IV SCH (16:37)
[2019-12-06] MEDS: CARBIDOPA/LEVODOPA 25/100MG TAB PO SCH (20:24)
[2019-12-06] MEDS ORDERED: PRAVASTATIN SOD 40 MG TAB PO SCH (21:00)
[2019-12-06] MEDS ORDERED: HEPARIN SOD 5,000 UNIT/0.5 ML VIAL SQ SCH (21:00)
[2019-12-06] MEDS ORDERED: ASPIRIN 81 MG ECTAB PO SCH (21:00)
[2019-12-06] MEDS ORDERED: DONEPEZIL HCL 5 MG TAB PO SCH (21:00)
[2019-12-07] MEDS: SODIUM CHLORIDE 0.9% 1000ML 1,000 ML IV SCH (05:03)
[2019-12-07 06:05] LABS: Hematocrit (blood only) 35.5 % (42-52); Hemoglobin 11.9 g/dL (14.0-18.0); Mean Corpuscular Hemoglobin 31.2 pg (25-34); Mean Corpuscular Hgb Conc 33.5 g/dL (32-36); Mean Corpuscular Volume 92.9 fL (80-100); Mean Platelet Volume 9.5 fL (7.4-10.4); Platelet Count 279 K/uL (130-400); RDW Coefficient of Variation 12.7 % (11.5-14.5); RDW Standard Deviation 43.1 fL (36.4-46.3); Red Blood Count 3.82 M/uL (4.7-6.1); White Blood Count 8.44 K/uL (4.8-10.8)
[2019-12-07 06:40] LABS: Creatinine Clr Calc Pharmacy 56.4 ml/min; Est GFR (African American) 84.8; Est GFR (Non-African American) 73.2; Magnesium 2.4 mg/dl (1.8-2.4); Potassium 4.3 mmol/L (3.5-5.1)
[2019-12-07 06:52] LABS: Thyroid Stimulating Hormone 2.16 uIu/ml (0.300-4.500)
[2019-12-07 08:16] LABS: Folate (Folic Acid) 20.78 ng/ml (>5.38)
--- NOTE | 2019-12-07 08:52 | Neurology Consultation ---
Date of Consultation December 07, 2019 Assessment & Plan (1) Syncope: (2) Collapse: (3) Parkinson's disease: (4) Dementia: (5) Prostate cancer: Patient has a history of Parkinson's disease and dementia. Currently the Parkinson's disease is an akinetorigid form without tremor and the dementia is quite advanced. On neurologic examination he has considerable rigidity, no resting tremor and fairly mild bradykinesia. Gait was not tested today but is considered poor and he fell recently. Mental status is without obvious delirium this morning. Patient had an episode of collapse and probable syncope the December 05. There was some questionable seizure-like activity but he has had no seizure activity (and on no anticonvulsants) since. His blood pressure was quite low at admission I suspect that the patient had some orthostasis or hypotensive event causing the collapse with possible secondary seizure activity. Patient has metastatic prostate cancer by history but his PSA is unmeasurable and there has been no evidence of tumor recently. Overall, I believe this morning he is neurologically at baseline. Recommendations: 1. An MRI of the brain is pending, with without contrast. 2. I do not see a need to do an EEG at this time. Should he have additional seizure-like activity we may consider this test or just initiate anticonvulsant such as levetiracetam. There is no need to initiate an anticonvulsant at this time. 3. Continue carbidopa levodopa, pimavansersin, donepezil and pramipexole at his typical doses as an outpatient. As an outpatient, we could consider discontinuing did episode ill and trying Exelon patch for his memory. In addition the daily dose of pramipexole could be converted to long-acting form for smoother delivery. I will leave this, however, to Dr. Potts, his regular neurologist. 4. Consider physical and occupational therapy and these could be done at his residential. Overall, I spent a total of 100 minutes with this case including review of records, review of CT films, direct evaluation the patient at bedside, and discussing the case with RN at bedside, and Dr. Navarro, including differential diagnosis and treatment options. History of Present Illness Reason for Consultation: Patient is a 79-year-old, who I was asked to see at the request of Chantel Neves, for neurologic consultation regarding Parkinson's disease, dementia, and acute collapse with altered consciousness. Requesting Physician: Leslie Sy PA-C Attending Physician: Hanny Navarro MD History of Present Illness Patient was diagnosed with Parkinson's disease symptoms in 2009 by physicians in [place] where he lives. He started out with the onset of a resting tremor in the right upper extremity which progressed to rigidity, gait issues, and some left-sided tremor. Over time, patient tried and failed rasagiline and pramipexole. He has been on carbidopa/levodopa 25/100, 1.5 tablets 3 times a day plus pramipexole 1.5 milligrams each morning, for at least a year. He was seen by Dr. Morgan 1st in June of 2018. She is now being followed by Dr. Potts, who last saw her November 07, 2019. Patient's Parkinson's disease has significantly progressed over time. He currently has rigidity, bradykinesia and balance/walking problems of significance. He has sialorrhea, hallucinations and vivid dreaming, orthostasis, as well as significant dementia which will be discussed next. Patient started getting dimension 2010. The history is very clear that the Parkinson's came before the dementia. In the past, he has tried higher doses of donepezil as well as memantine. Currently he has severe dementia and lives at [facility]. He is on 5 milligrams donepezil daily. He is on pimavanserin 34mg daily for the hallucinations. He tends to speak very little and has a difficult time following commands. In addition, the patient was diagnosed with prostate cancer in 2009 and pulmonary metastases in 2014. He is followed by Dr. Ibrahima Grey in Urology and is post radiation therapy and multiple medications. Currently he is on Eligard. More recently there has been no recurrence of prostate cancer to my understanding of the chart. Apparently, he was walking December 05 at the residential and collapsed. I really have no details directly regarding this event but 1 of the staff at the residential thought that there may have been some seizure-like activity (again no details). There was a report that he had stopped breathing for several seconds and had a loss of consciousness for less than a minute. In the ambulance arrived over to the hospital he vomited 4 times. He was given Zofran. He arrived to the emergency room December 05 at 1153 with a pulse of 63, respiratory rate 21, blood pressure 106/45 and a temperature of 36.9. Clinically, he was described as little anxious with some mild distress picking at bed clothes but he did purposely pull covers up to cover himself once. He was essentially nonverbal but moving his limbs equally well. He had severe dementia. CT scan of the head shows some right sphenoid sinusitis of an acute nature but no acute changes in the brain. CT scan of the cervical spine showed diffuse degenerative changes but no acute fractures. CBC showed mild anemia and Chem profile was largely unremarkable. BUN was 20 and creatinine 1.0. Urinalysis was negative and TSH was normal at 2.1. Nursing reports that he has had no seizures in the emergency room or since admission. His mental status has been about the same. B12 and folate levels were unremarkable. PSA was less than 0.01. Blood pressure this morning is 136/61. Allergies Allergy/AdvReac Type Severity Reaction Status Date / Time No Known Allergies Allergy Verified 11/07/19 11:55 Home Medications Home Medications Medication Instructions Recorded Confirmed Type aspirin 81 mg tablet,delayed 81 mg PO PM tab 05/28/19 12/06/19 History release cholecalciferol (vitamin D3) 25 1,000 units PO QAM cap 05/28/19 12/06/19 History mcg (1,000 unit) capsule cyanocobalamin (vitamin B-12) 1,000 mcg PO QAM #90 tab 05/28/19 12/06/19 History 1,000 mcg tablet metronidazole 0.75 % topical cream 1 appln TOP QAM 05/28/19 12/06/19 History pimavanserin 34 mg capsule 34 mg PO QAM 05/28/19 12/06/19 History pravastatin 40 mg tablet 40 mg PO PM tab 05/28/19 12/06/19 History psyllium husk 3.4 gram/5.4 gram 3.4 g PO QAM gm 05/28/19 12/06/19 History oral powder carbidopa 25 mg-levodopa 100 mg 1.5 tab PO TID 90 Days #405 tab 07/08/19 12/06/19 Rx tablet acetaminophen 500 mg tablet 500 - 1,000 mg PO TID PRN #90 tab 08/05/19 12/06/19 Rx bicalutamide 50 mg PO QAM 12/03/19 03/24/20 History pramipexole 1.5 mg PO QAM 08/16/19 12/06/19 History donepezil [Aricept] 5 mg PO HS 12/06/19 12/06/19 History Patient History Medical History Arthritis (Acute) Dementia (Acute) Hyperlipidemia (Chronic) Lung cancer (Acute) Parkinson's disease (Chronic) Prostate cancer (Acute) Rosacea (Acute) Secondary cancer of lung (Acute) Urinary incontinence (Acute) Vision problem (Acute) Surgical History History of appendectomy History of cataract surgery History of cholecystectomy History of hernia repair History of intestinal surgery Family History Mother , Dementia in her early 90s Diabetes Cardiac disorder Gallbladder disease Dementia Father Cardiac disorder Diabetes Sister Hypertension Colon cancer Social History Preferred Language: Syrian Communication Ability: nonverbal Graphics 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 Feels Safe at Home: Yes Safety Concerns: Feels Safe At This Time Smoking Status: Never smoker Do You Dip or Chew Tobacco: No ; Second Hand Exposure: No ; Tobacco Cessation Education Requested by Patient: No Hx Alcohol Use: No Hx Substance Use: No Review of Systems Review of Systems: Unobtainable due to mental health condition Patient is not in any pain and does not seem to have a headache. He is mostly nonverbal cannot answer questions. Therefore due to his severe dementia, review of systems was completely unobtainable. Physical Exam Physical Exam: The patient is right-handed. The patient is awake, alert, and somewhat attentive. Speech is infrequent but occasionally spontaneous and he will say a string of words out of context what's happening. They are not necessarily complete sentences and although 1 gets the sense he is trying to relates some information, most the time it does not make any sense. He seems fluent and does not have dysarthria. He cannot name objects or repeat phrases. He has trouble following one-step commands although does so occasionally. He does not imitate often either. He is typically picking or grabbing with his hands at clothing or objects near him. He makes eye contact with the examiner and is fairly cooperative throughout the exam. He did not recognize or be able to state his name. The discs are sharp bilaterally. Pupils are 3 mm bilaterally and reactive to light. Extraocular eye muscles are intact without nystagmus. Visual acuity and visual martinez seem normal grossly to confrontation. There are no deficits to sensation in the face in all 3 distributions of the fifth cranial nerve bilaterally. Corneal reflexes are positive bilaterally. Facial strength and symmetry was normal bilaterally. Hearing seems normal to whisper and finger rub bilaterally. Palate moves well without asymmetry. There is normal sternocleidomastoid and trapezius (shoulder shrug) strength bilaterally. Tongue is midline with good strength bilaterally. Neck has a full range of motion without discomfort. There are no cervical bruits bilaterally. There are no cranial or ocular bruits. Heart is without murmur. There is a regular rhythm and rate. Cervical, thoracic, and lumbar spine are nontender to palpation. Gait is not attempted but his stance sitting up in bed is reasonable. With outstretched arms there is no obvious drift. There are no resting, postural, or action tremors. There is no ataxia with finger to nose testing but this is a difficult test to evaluate. There is reasonable facility in the hands. No other abnormal involuntary movements are noted. He has some bradykinesia and masklike face but I would grade these as both mild. He has moderate diffuse rigidity of the limbs. Again, there is no resting tremor. Motor strength is 5/5 diffusely in the arms bilaterally including deltoids, biceps, triceps, brachioradialis, wrist flexors and extensors, ski binding fitter and repairer, and intrinsic hand muscles. Motor strength is 5/5 diffusely in the legs bilaterally including hip flexors, quadriceps, hamstrings, gastrocnemius, tibialis anterior, tibialis posterior, and Peroneii muscles. Toe extensors are normal and there is good bulk in the extensor digitorum brevis muscles bilaterally. There is no atrophy noted in the muscles. Muscle bulk is normal, there is no tenderness to palpation, no myotonia to percussion, and no fasciculations seen. Sensory examination is intact to touch and pin throughout all 4 limbs diffusely, as best as I can ascertain through withdrawal. Reflexes are 2/4 in the biceps, triceps, brachioradialis, quadriceps, and Achilles tendons bilaterally. There is no clonus bilaterally. Toes are downgoing with plantar stimulation bilaterally. Peripheral pulses are present and of normal quality distally in all 4 limbs. There is no peripheral edema noted in the limbs. Results & Data Vital Signs (Past 12 Hours) Vital Signs Temp Pulse Pulse Resp BP Pulse Ox 12/07/19 07:20 37.0 C 67 20 136/61 98 12/07/19 07:18 72 12/07/19 04:42 36.6 C 76 20 152/76 H 99 12/06/19 23:15 36.9 C 57 L 18 115/68 95 12/06/19 22:20 52 L 12/06/19 20:41 78 PG Care Time/CCT Total # of Minutes Spent Total Time Spent with Patient: Total time spent is greater than 50% in coordination of care (as documented) at patient's floor/unit and/or counseling patient: Coding Level of Care Code 37720 OBS Care - Level 3 Diagnoses Syncope R55 Syncope type: unspecified Collapse R55 Parkinson's disease G20 Dementia F03.90 Prostate cancer C61 Time Spent (min) 100 Comment Add [id number] to [id number] (1) Syncope Syncope type: unspecified Qualified Code(s): R55 - Syncope and collapse
[2019-12-07] MEDS ORDERED: BICALUTAMIDE 50 MG TAB PO SCH (09:00)
[2019-12-07] MEDS: CARBIDOPA/LEVODOPA 25/100MG TAB PO SCH ×2 (09:02→15:03)
--- NOTE | 2019-12-07 12:05 | XCELERA ---
[id number] \\[email or web address]\[id number]
--- NOTE | 2019-12-07 13:29 | Discharge Summary ---
Date of Service December 07, 2019 Admission HPI Per Admitting Provider Mr. Bender is a 79 year old male who resides at [facility]; he presented following a fall this morning. Patient has baseline dementia and is non-verbal, therefore he cannot provide history. Per ER physician, he had multiple witnesses at [facility] but they were mostly other residents. Discussed episode with chief nursing executive at [facility]. Patient was noted to have stiffening of his body, therefore nurses lowered him to the ground in the common lounge. He developed seizure like activity (shaking of entire body) after being lowered to the ground and was not breathing for a period of 10 seconds. He was flipped onto his back and started breathing again. Patient developed nausea/vomiting following episode. EMS was called for evaluation; he did have vomiting in the ambulance during transport. Patient was very lethargic during transport but is now alert, not oriented (baseline for him). ER course: CXR, Head CT and Cervical spine CT were all negative. Lab work showed mild dehydration. Trop was negative along with EKG for possible ischemia. Procal was <0.05. U/a negative for infection. Blood cultures are pending. He will be admitted for evaluation of altered mental status with possible fall/syncopal episode. Principal Diagnosis Syncope Orthostasis Discharge Exam Vitals reviewed NAD, alert, awake, not oriented but does respond to name, sometimes speaks in phrases that are not related to line of questioning Anicteric sclerae, PERRL RRR no mgr CTAB no wcr Abd +BS soft NT ND Ext no edema, moves all extremities, non-cooperative for Neuro exam Discharge Data Allergies Allergy/AdvReac Type Severity Reaction Status Date / Time No Known Allergies Allergy Verified 12/13/19 11:37 Consultations 12/06/19 14:12 ED Decision to Admit Stat 12/06/19 15:43 Consult Neurology Routine 12/06/19 16:14 Consult Case Management - Discharge Planning Routine Ordered Studies 12/06/19 12:02 CT head/brain wo con Stat 12/06/19 12:12 CT cervical spine wo con Stat CXR ECHO Hospital Course (1) Acute metabolic encephalopathy: - Presented with increased confusion & fall/collapse at [facility]. - U/a negative; BC NGTD, afebrile, but did have acute sinusitis on CT head -seems to be at baseline after questioning with his on the phone He is in NAD and likely had syncope from orthostasis - CXR and CT cervical spine negative. - Head CT did show sinusitis -- gave IV Rocephin and will send out on po Augmentin x 10 day course - B1/Folate level normal Back to baseline (2) Collapse: - Head CT negative, brain MRI cancelled as pt could not hold still and in discussion with , chose not to sedate him for it Discussed case with Neuro-seizure is NOT likely, most likely was from orthostasis reports frequent passing out, moreso in the mornings after standing for a while as he gets restless and likes to walk serial tropinin neg ECHO with mod MR but normal EF, no - treated with IV fluids at 80 cc/hr - PT/OT/Speech therapy evaluation. - Non-verbal at baseline in setting of dementia, therefore it is very difficult to obtain accurate history or R.O.S. Mr. Bender was admitted after passing out with possible seizure activity. He has a history of low blood pressure and orthostasis; his blood pressure was on the lower side when he arrived at the ER. His CT scan of the head did not show anything acute. Labs and urinalysis unremarkable, CXR unremarkable. He was a bit dehydrated. Neurology saw him and felt he most likely did NOT have a seizure, but likely had syncope. He was ordered a brain MRI but was not able to hold still and therefore the test was aborted. He had B12, folate, and thyroid function testing which was normal. Vitamin B1 was pending at time of discharge and should be followed up on by his PCP. ECHO was with moderate MR but no other significant findings. He had no arrhythmias on telemetry monitoring. He was hydrates with normal saline and had improvement in his blood pressure. He should wear compression stockings during the daytime hours and should have salt liberalized in his diet to keep his blood pressure from dropping too low and causing him to pass out. He should be allowed to sit down and have legs elevated if possible especially after breakfast which seems to be the time when this occurs most frequently. Neurology here recommended switching his donepezil to Exelon patch and this can be discussed with his usual Neurologist at his next scheduled appointment. Please finish out the course of Augmentin for his sinusitis. (3) Dementia: - Parkinson's related dementia; his reports he will intermittently answer questions appropriately but is nonverbal for the most part at [facility]. - Continue Aricept, Sinemet and Pimavanserin (non-formulary, will need to bring from [facility]) as prescribed. - Re-orient frequently (4) Sinusitis: - Acute right sphenoid sinusitis noted on CT head. - abx as above (5) Prostate cancer: - H/o prostate cancer, lung metastasis. - Follows with urology, s/p GnRH agonists, radiation therapy and XRT in 2009. - Continue Bicalutamide daily as prescribed. Also receives Eligard injections [id number]. (6) Hyperlipidemia: - Continue Pravastatin & ASA as prescribed. (7) Anemia: - Hgb baseline ~12. - Monitor CBC daily. (8) Dehydration: - Elevated BUN noted on discharge. - NS at 80 cc/hr; also received IV fluids in the ER. (9) Mitral regurgitation: moderate as seen on ECHO No CHF follow as outpt (10) DVT prophylaxis: - SCDs Dispo: stable for dc back to Personal Shelter Total Time Total Time Spent Total Time Spent (In Minutes): 45 min Total Time Includes: Examination of the Patient, Discharge Planning, Medication Reconciliation and Communication With Other Providers (Neurology) Discharge Plan Discharge Items Patient Disposition: Personal Shelter Reason For Visit: CONFUSION Discharge Diagnosis: Syncope and collapse, Orthostatic hypotension, Acute sphenoid sinusitis Condition on Discharge: Fair Activity: As commented below Activity Comment: Please allow him to sit with legs elevated after breakfast. Bathing: No limitations Weightbearing: Full weightbearing Non-emergency contact: Primary Care Provider and Neurologist Call non-emergency contact if: you have any medication questions and your symptoms worsen Follow-up/Referrals: [place] [Primary Care Provider] - Diet: Regular Diet Comment: Please liberalize salt in his diet. Addtl Attending Provider Instructions: Mr. Bender was admitted after passing out with possible seizure activity. He has a history of low blood pressure and orthostasis; his blood pressure was on the lower side when he arrived at the ER. His CT scan of the head did not show anything acute. Labs and urinalysis unremarkable, CXR unremarkable. He was a bit dehydrated. Neurology saw him and felt he most likely did NOT have a seizure, but likely had syncope. He was ordered a brain MRI but was not able to hold still and therefore the test was aborted. He had B12, folate, and thyroid function testing which was normal. Vitamin B1 was pending at time of discharge and should be followed up on by his PCP. ECHO was with moderate MR but no other significant findings. He had no arrhythmias on telemetry monitoring. He was hydrates with normal saline and had improvement in his blood pressure. He should wear compression stockings during the daytime hours and should have salt liberalized in his diet to keep his blood pressure from dropping too low and causing him to pass out. He should be allowed to sit down and have legs elevated if possible especially after breakfast which seems to be the time when this occurs most frequently. Neurology here recommended switching his donepezil to Exelon patch and this can be discussed with his usual Neurologist at his next scheduled appointment. Please finish out the course of Augmentin for his sinusitis. Pending Studies at Discharge: Yes (Final blood culture results, Vitamin B1 ) Stand-Alone Forms: My [facility] Skilled Items Patient informed of condition?: Yes DNR: No Discharge Level of Care: Other Communicable Disease: No Discharge Prognosis: Improving Lines: None Urinary Catheter: No Medications and DC Order Prescriptions: Continued acetaminophen 500 mg tablet 500 - 1,000 mg PO TID PRN (Reason: fever) Qty: 90 RF: 5 aspirin 81 mg tablet,delayed release (DR/EC) 81 mg PO HS RF: 0 cyanocobalamin (vitamin B-12) 1,000 mcg tablet 1,000 mcg PO QAM Qty: 90 RF: 0 psyllium husk 3.4 gram/5.4 gram powder 3.4 g PO QAM RF: 0 metronidazole 0.75 % cream 1 appln TOP QAM RF: 0 Nuplazid 34 mg capsule 34 mg PO QAM RF: 0 pravastatin 40 mg tablet 40 mg PO HS RF: 0 cholecalciferol (vitamin D3) 1,000 unit capsule 1,000 units PO QAM RF: 0 bicalutamide 50 mg tablet 50 mg PO QAM RF: 0 pramipexole 1.5 mg tablet extended release 24 hr 1.5 mg PO QAM RF: 0 donepezil [Aricept] 5 mg tablet 5 mg PO HS RF: 0 No Action carbidopa-levodopa 25-100 mg tablet 1.5 tab PO TIDM RF: 0 Discharge Orders: Discharge Order (Routine); Ordered 12/07/19 Ordered By: Hanny Navarro Admission Data Admit Date/Time: 12/06/19 14:23 Attending Provider: Hanny Navarro Admit Provider: Hanny Navarro Primary Care Provider: [place] [place] Other Providers: Hanny Navarro ; Fredi Baca III Other Interventions: Discharge Summary Assessment (RN) Last Done: 12/07/19 14:31 DC Date/Time DO NOT enter until pt leaves facility: 12/07/19 15:30 Coding Level of Care Code 84540 OBS Care - Discharge Diagnoses Acute metabolic encephalopathy G93.41 Collapse R55 Dementia F03.90 Sinusitis J32.9 Prostate cancer C61 Hyperlipidemia E78.5 Anemia D64.9 Dehydration E86.0 Mitral regurgitation I34.0 DVT prophylaxis Z29.9
== END 2019-12-07 15:30 | disposition home or self-care (01) ==
LOC: 2N 11:48 → ED 11:48 → 2N 15:07

== ENCOUNTER 2019-12-13 11:07 | Inpatient (IN) ==
[2019-12-13] MEDS ORDERED: PIPERACILL/TAZOBAC CONSULT ACTIVE PRN ×3 (11:37→15:17)
[2019-12-13] MEDS ORDERED: PIPERACILLIN/TAZOBACTAM 3.375 GM in DEXTROSE 5% 100 ML/100 ML BAG IV STA (11:37)
[2019-12-13] MEDS ORDERED: PIPERACILLIN/TAZOBACTAM 4.5 GM/120 ML BAG IV ONE (11:41)
[2019-12-13 11:51] LABS: Hematocrit (blood only) 36.9 % (42-52); Hemoglobin 12.3 g/dL (14.0-18.0); Mean Corpuscular Hemoglobin 30.6 pg (25-34); Mean Corpuscular Hgb Conc 33.3 g/dL (32-36); Mean Corpuscular Volume 91.8 fL (80-100); Mean Platelet Volume 9.6 fL (7.4-10.4); Platelet Count 290 K/uL (130-400); RDW Coefficient of Variation 12.7 % (11.5-14.5); RDW Standard Deviation 42.9 fL (36.4-46.3); Red Blood Count 4.02 M/uL (4.7-6.1); White Blood Count 18.26 K/uL (4.8-10.8)
[2019-12-13 12:08] LABS: Alanine Aminotransferase 15 U/L (12-78); Albumin Level 3.8 gm/dl (3.4-5.0); Aspartate Aminotransferase 18 U/L (15-37); BUN Creatinine Ratio 14.8 (10-20); Blood Urea Nitrogen 16 mg/dl (7-18); Calcium 8.9 mg/dl (8.5-10.1); Carbon Dioxide 27 mmol/L (21-32); Chloride 108 mmol/L (98-107); Est GFR (African American) 75.5; Est GFR (Non-African American) 65.1; Glucose 123 mg/dl (70-99); Magnesium 2.4 mg/dl (1.8-2.4); Potassium 3.5 mmol/L (3.5-5.1); Sodium 139 mmol/L (136-145)
--- NOTE | 2019-12-13 12:09 | Emergency Department Note ---
History of Present Illness General Chief complaint: Syncope History of Present Illness This patient is a 79-year-old male who presents to the emergency department via ambulance from [facility] for evaluation of a syncopal episode that occurred prior to arrival. The patient is nonverbal; therefore, the history is limited. Staff was reportedly trying to help him get out of a chair when he crumpled to the ground. His heart rate was reportedly low. He was therefore sent here for evaluation. Home Medications Home Medications Medication Instructions Recorded Confirmed Type aspirin 81 mg tablet,delayed 81 mg PO HS tab 05/28/19 12/13/19 History release cholecalciferol (vitamin D3) 25 1,000 units PO QAM cap 05/28/19 12/13/19 History mcg (1,000 unit) capsule cyanocobalamin (vitamin B-12) 1,000 mcg PO QAM #90 tab 05/28/19 12/13/19 History 1,000 mcg tablet metronidazole 0.75 % topical cream 1 appln TOP QAM 05/28/19 12/13/19 History pimavanserin 34 mg capsule 34 mg PO QAM 05/28/19 12/13/19 History pravastatin 40 mg tablet 40 mg PO HS tab 05/28/19 12/13/19 History psyllium husk 3.4 gram/5.4 gram 3.4 g PO QAM gm 05/28/19 12/13/19 History oral powder acetaminophen 500 mg tablet 500 - 1,000 mg PO TID PRN #90 tab 08/05/19 12/13/19 Rx bicalutamide 50 mg PO QAM 08/16/19 12/13/19 History pramipexole 1.5 mg PO QAM 08/16/19 12/13/19 History donepezil [Aricept] 5 mg PO HS 12/06/19 12/13/19 History carbidopa-levodopa 1.5 tab PO TIDM 12/11/19 12/13/19 History Allergies Allergy/AdvReac Type Severity Reaction Status Date / Time No Known Allergies Allergy Verified 12/13/19 11:37 Past Med/Surg History Medical History Arthritis (Acute) Dementia (Acute) Hyperlipidemia (Chronic) Lung cancer (Acute) Mitral regurgitation Parkinson's disease (Chronic) Prostate cancer (Acute) Rosacea (Acute) Secondary cancer of lung (Acute) Urinary incontinence (Acute) Vision problem (Acute) Surgical History History of appendectomy History of cataract surgery History of cholecystectomy History of hernia repair History of intestinal surgery Family History Mother , Dementia in her early 90s Diabetes Cardiac disorder Gallbladder disease Dementia Father Cardiac disorder Diabetes Sister Hypertension Colon cancer Social History Preferred Language: Egyptian Communication Ability: Impaired Medart Operator Required: No Beliefs That Will Affect Care: None marital status: Current Living Situation: Personal Care Facility Current Living Situation Comment: [place] current occupational status: retired Other Information That Helps Us Care for You: No other: 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 Feels Safe at Home: Yes Safety Concerns: Feels Safe At This Time Smoking Status: Never smoker Second Hand Exposure: No ; Hx Alcohol Use: No Hx Substance Use: No Review of Systems Unable to perform review of systems secondary to dementia and nonverbal status. Physical Exam Vital Signs Vital Signs - 24 hr 12/13/19 11:08 12/13/19 11:12 12/13/19 11:30 Temperature 36.8 C Temperature Source Oral Pulse Rate 68 73 78 Pulse Rate [Right Radial] Pulse Rate from SpO2 Sensor 72 76 Respiratory Rate 21 21 30 H Respiratory Effort / Characteristics Non-Labored Respiratory Depth Normal Respiratory Pattern Regular Blood Pressure 114/62 114/62 Blood Pressure Mean 79 83 Pulse Oximetry 84 L 81 L 84 L Oxygen Delivery Method Room Air Room Air Nasal Cannula Oxygen Flow Rate 6 Fraction of Inspired Oxygen Sepsis Recent Fever Within 48 Hours No Sepsis New/Unexplained Change in Mental Status No Sepsis Action Taken by Nursing No Action Required Oxygen Flow Rate - Titration Fraction of Inspired Oxygen - Titration Pulse Oximetry Post Tiitration 12/13/19 11:49 12/13/19 11:58 12/13/19 12:00 Temperature Temperature Source Pulse Rate 72 Pulse Rate [Right Radial] 66 Pulse Rate from SpO2 Sensor 69 Respiratory Rate 20 21 Respiratory Effort / Characteristics Non-Labored Spontaneous Respiratory Depth Respiratory Pattern Blood Pressure Blood Pressure Mean Pulse Oximetry 94 84 L 95 Oxygen Delivery Method High Flow Nasal Cannula High Flow Nasal Cannula High Flow Nasal Cannula Oxygen Flow Rate 30 6 30 Fraction of Inspired Oxygen 55 55 Sepsis Recent Fever Within 48 Hours Sepsis New/Unexplained Change in Mental Status Sepsis Action Taken by Nursing Oxygen Flow Rate - Titration 30 Fraction of Inspired Oxygen - Titration 55 Pulse Oximetry Post Tiitration 94 12/13/19 12:03 12/13/19 12:15 12/13/19 12:43 Temperature Temperature Source Pulse Rate 65 61 63 Pulse Rate [Right Radial] Pulse Rate from SpO2 Sensor 65 62 64 Respiratory Rate 21 22 20 Respiratory Effort / Characteristics Respiratory Depth Respiratory Pattern Blood Pressure 106/53 L 113/51 L 104/60 Blood Pressure Mean 60 76 68 Pulse Oximetry 94 97 98 Oxygen Delivery Method High Flow Nasal Cannula High Flow Nasal Cannula High Flow Nasal Cannula Oxygen Flow Rate 30 30 30 Fraction of Inspired Oxygen 55 55 55 Sepsis Recent Fever Within 48 Hours Sepsis New/Unexplained Change in Mental Status Sepsis Action Taken by Nursing Oxygen Flow Rate - Titration Fraction of Inspired Oxygen - Titration Pulse Oximetry Post Tiitration 12/13/19 12:45 12/13/19 13:15 12/13/19 13:30 Temperature Temperature Source Pulse Rate 62 59 L 66 Pulse Rate [Right Radial] Pulse Rate from SpO2 Sensor 62 59 L 64 Respiratory Rate 22 24 22 Respiratory Effort / Characteristics Respiratory Depth Respiratory Pattern Blood Pressure 103/49 L 109/60 105/63 Blood Pressure Mean 64 81 77 Pulse Oximetry 98 100 99 Oxygen Delivery Method High Flow Nasal Cannula Oxygen Flow Rate 30 Fraction of Inspired Oxygen 55 Sepsis Recent Fever Within 48 Hours Sepsis New/Unexplained Change in Mental Status Sepsis Action Taken by Nursing Oxygen Flow Rate - Titration Fraction of Inspired Oxygen - Titration Pulse Oximetry Post Tiitration 12/13/19 13:45 Temperature Temperature Source Pulse Rate 64 Pulse Rate [Right Radial] Pulse Rate from SpO2 Sensor 69 Respiratory Rate 19 Respiratory Effort / Characteristics Respiratory Depth Respiratory Pattern Blood Pressure 116/64 Blood Pressure Mean 87 Pulse Oximetry 99 Oxygen Delivery Method Oxygen Flow Rate Fraction of Inspired Oxygen Sepsis Recent Fever Within 48 Hours Sepsis New/Unexplained Change in Mental Status Sepsis Action Taken by Nursing Oxygen Flow Rate - Titration Fraction of Inspired Oxygen - Titration Pulse Oximetry Post Tiitration Constitutional WD/WN, vitals as above Eyes EOM intact bilaterally ENMT Small abrasion noted to the left side of the forehead. Neck trachea midline Respiratory Crackles at the right base. Decreased breath sounds in the left. No wheezing. No tachypnea noted. Cardiovascular RRR, no murmur, no edema Gastrointestinal (Abdomen) normal bowel sounds, soft, nontender, no hepatosplenomegaly Musculoskeletal No edema or erythema noted. Skin no rashes, warm and dry Neurologic Alert. Nonverbal. Does not follow commands. Psychiatric Acting appropriately Course Course Patient was seen and examined Vital signs including blood pressure were reviewed medications list was verified with patient Labs were obtained, and a saline lock was established I spoke with the patient's , Nichole via phone The patient was assessed by my supervising physician Imaging was performed and reviewed Upon reevaluation, the patient's oxygen was stable. The case was discussed with the [facility] hospitalist group. They kindly agreed to evaluate the patient for likely inpatient management Consultations Consultation #1: Dr. Ambrosio Administered Medications Carbidopa/Levodopa (Sinemet 25/100 Mg) 1.5 tab PO TIDM KATHERINE Stop: 01/12/20 16:59 Last Admin: 12/13/19 17:47 Dose: 1.5 tab Documented by: [id number] Potassium Chloride/Sodium Chloride (Normal Saline W/20 Meq Kcl) 20 meq in 1,000 mls @ 80 mls/hr IV .[id number] KATHERINE Stop: 01/12/20 15:44 Last Admin: 12/13/19 16:18 Dose: 80 mls/hr Documented by: [id number] Piperacillin Sod/Tazobactam (Sod 3.375 gm/ Dextrose) 115 mls @ 28.75 mls/hr IV Q8H KATHERINE; Protocol Stop: 12/20/19 12:59 Last Admin: 12/13/19 18:03 Dose: 28.8 mls/hr Documented by: [id number] Miscellaneous (Order Awaiting Action) 1 ea N/A QS KATHERINE Stop: 01/12/20 15:59 Last Admin: 12/13/19 16:18 Dose: Not Given Documented by: [id number] Miscellaneous (Order Awaiting Action) 1 ea N/A QS KATHERINE Stop: 01/12/20 15:59 Last Admin: 12/13/19 16:18 Dose: Not Given Documented by: [id number] Discontinued Medications Piperacillin Sod/Tazobactam (Sod 3.375 gm/ Dextrose) 100 ml in 115 mls @ 230 mls/hr IV NOW STA Stop: 12/13/19 12:06 Last Admin: 12/13/19 13:04 Dose: Not Given Documented by: [id number] Piperacillin Sod/Tazobactam Sod (Zosyn) 4.5 gm in 120 mls @ 240 mls/hr IV NOW ONE Stop: 12/13/19 12:10 Last Infusion: 12/13/19 13:43 Dose: 0 mls/hr Documented by: [id number] Admin: 12/13/19 13:04 Dose: 240 mls/hr Documented by: [id number] Acetaminophen (Ofirmev) 1,000 mg in 100 mls @ 400 mls/hr IV NOW STA Stop: 12/13/19 19:31 Last Infusion: 12/13/19 19:48 Dose: 0 mls/hr Documented by: [id number] Admin: 12/13/19 19:32 Dose: 400 mls/hr Documented by: [id number] Medical Decision Making Medical Records Attestation: I reviewed the patient's medical records. Home Medications Current Medication List: was personally reviewed by me Laboratory Data Attestation: I reviewed the patient's lab results. Result diagrams: 12/13/19 11:40 12/13/19 11:40 Lab Results 12/13/19 12/13/19 12/13/19 Range/Units 11:40 11:40 13:14 WBC 18.26 H (4.8-10.8) K/uL RBC 4.02 L (4.7-6.1) M/uL Hgb 12.3 L (14.0-18.0) g/dL Hct 36.9 L (42-52) % MCV 91.8 (80-100) fL MCH 30.6 (25-34) pg MCHC 33.3 (32-36) g/dL RDW Std Deviation 42.9 (36.4-46.3) fL RDW Coeff of Ashkan 12.7 (11.5-14.5) % Plt Count 290 (130-400) K/uL MPV 9.6 (7.4-10.4) fL Immature Gran % (Auto) 0.3 % Neut % (Auto) 74.5 % Lymph % (Auto) 18.6 % [place] % (Auto) 4.7 % Eos % (Auto) 1.7 % Baso % (Auto) 0.2 % Immature Gran # (Auto) 0.06 H (0.00-0.02) K/uL Neut # (Auto) 13.61 H (1.4-6.5) K/uL Lymph # (Auto) 3.39 (1.2-3.4) K/uL [place] # (Auto) 0.85 H (0.11-0.59) K/uL Eos # (Auto) 0.31 (0-0.5) K/uL Baso # (Auto) 0.04 (0-0.2) K/uL Sodium 139 (136-145) mmol/L Potassium 3.5 (3.5-5.1) mmol/L Chloride 108 H (98-107) mmol/L Carbon Dioxide 27 (21-32) mmol/L Anion Gap 4.0 (3-11) BUN 16 (7-18) mg/dl Creatinine 1.09 (0.6-1.4) mg/dl Est Cr Clr Drug Dosing Not Reportable Est GFR ( Amer) 75.5 Est GFR (Non-Af Amer) 65.1 BUN/Creatinine Ratio 14.8 (10-20) Glucose 123 H (70-99) mg/dl Calcium 8.9 (8.5-10.1) mg/dl Phosphorus 4.3 (2.5-4.9) mg/dl Magnesium 2.4 (1.8-2.4) mg/dl Total Bilirubin 0.7 (0.2-1) mg/dl AST 18 (15-37) U/L ALT 15 (12-78) U/L Alkaline Phosphatase 63 (45-117) U/L Troponin I < 0.015 (0-0.045) ng/ml Total Protein 7.0 (6.4-8.2) gm/dl Albumin 3.8 (3.4-5.0) gm/dl Globulin 3.2 (2.5-4.0) gm/dl Albumin/Globulin Ratio 1.2 (0.9-2) Urine Color Yellow Urine Appearance Clear (Clear) Urine pH 7.5 (4.5-7.5) Ur Specific [place] 1.014 (1.000-1.030) Urine Protein Negative (Negative) Urine Glucose (UA) Negative (Negative) Urine Ketones Negative (Negative) Urine Blood Negative (Negative) Urine Nitrite Negative (Negative) Urine Bilirubin Negative (Negative) Urine Urobilinogen Negative (Negative) Ur Leukocyte Esterase Negative (Negative) Imaging Data Attestation: I personally reviewed and interpreted this imaging study as follows: Radiologist's Impression: Chest x-ray IMPRESSION: Low lung volumes with mild bibasilar opacities that favor atelectasis. ACT 112: Negative or not required by law. Electronically signed by: Francesco Sanders M.D. 12/13/2019 12:16 PM Dictated: 12/13/19 1213 Transcribed: 12/13/19 1213 ECG Data Attestation: I personally reviewed and interpreted this ECG as follows: Indication: + syncope Rate (beats per minute): 66 Rhythm: + normal sinus Additional Comments: No ischemic changes noted. No ectopy. Blood Pressure Blood Pressure Findings: Normal blood pressure MDM Narrative This patient is a 79-year-old male who presents to the emergency department with a syncopal episode. He had an episode of vomiting in the emergency department. Labs reveal leukocytosis. I am concerned for aspiration pneumonia. The patient was treated with IV antibiotics. I do not feel comfortable sending the patient back to his facility. The hospitalist will evaluate the patient for likely inpatient management. Impression & Plan Syncope, Aspiration pneumonia Discharge Plan Visit Data *Final* Discharge Date/Time: 12/13/19 14:45 Chief Complaint: Syncope ED Provider: Christopher Fischer ED Midlevel Provider: Radha Rivera Discharge Problem: Syncope, Aspiration pneumonia Patient Disposition: Admitted As Inpatient Discharge Instructions Interventions: ED Discharge Assessment Last Done: 12/13/19 14:45
[2019-12-13 12:13] LABS: Albumin Globulin Ratio 1.2 (0.9-2); Alkaline Phosphatase 63 U/L (45-117); Bilirubin,Total 0.7 mg/dl (0.2-1); Globulin 3.2 gm/dl (2.5-4.0); Phosphorus 4.3 mg/dl (2.5-4.9); Troponin I < 0.015 ng/ml (0-0.045)
[2019-12-13 12:15] LABS: Basophils # (auto) 0.04 K/uL (0-0.2); Basophils % (auto) 0.2 %; Eosinophils # (auto) 0.31 K/uL (0-0.5); Eosinophils % (auto) 1.7 %; Immature Granulocytes # (auto) 0.06 K/uL (0.00-0.02); Immature Granulocytes % (auto) 0.3 %; Lymphocytes # (auto) 3.39 K/uL (1.2-3.4); Lymphocytes % (auto) 18.6 %; Monocytes # (auto) 0.85 K/uL (0.11-0.59); Monocytes % (auto) 4.7 %; Neutrophils # (auto) 13.61 K/uL (1.4-6.5); Neutrophils % (auto) 74.5 %
--- NOTE | 2019-12-13 12:18 | XRay Report ---
XR chest 1V portable CLINICAL HISTORY: hypoxia COMPARISON STUDY: Chest CT May 27, 2019. Chest radiograph December 06, 2019. FINDINGS: Lung volumes are mildly diminished. There is no pneumothorax or pleural effusion. There are mild bibasilar opacities. No evidence for pulmonary edema. Cardiac size is normal. Mediastinal conto urs are normal. IMPRESSION: Low lung volumes with mild bibasilar opacities that favor atelectasis. ACT 112: Negative or not required by law. Electronically signed by: Francesco Sanders M.D. 12/13/2019 12:16 PM
--- NOTE | 2019-12-13 12:40 | CT Scan Report ---
CT head/brain wo con CLINICAL HISTORY: 79 years-old Male presenting with syncope. TECHNIQUE: Multidetector CT imaging of the head was performed without the use of intravenous contrast . IV contrast: None. One or more dose lowering techniques were used consistent with the principles of ALARA (as low as reasonably achievable), including automatic exposure control, mA or kV adjustment t o individual patient size, and/or use of iterative reconstruction. COMPARISON: 12/11/2019. CT DOSE (mGy.cm): The estimated cumulative dose is 1203.82 mGy.cm. FINDINGS: [employer] topogram: Unremarkable. Proportional ventricular and sulcal prominence, likely age-related parenchymal volume loss. No hemorr izabel. Brain parenchyma normal in appearance with preserved new-white differentiation. No acute jessica torial infarct. No mass effect or midline shift. No extra-axial fluid collection. Paranasal sinuses a nd mastoid air cells clear. Calvarium intact. IMPRESSION: 1. No acute intracranial abnormality. ACT 112: Negative or not required by law. Electronically signed by: Antonino Bob M.D. 12/13/2019 12:39 PM
--- NOTE | 2019-12-13 12:57 | CT Scan Report ---
CT OF THE ABDOMEN AND PELVIS WITHOUT CONTRAST CLINICAL HISTORY: Vomiting. COMPARISON STUDY: CT of the abdomen and pelvis May 27, 2019. TECHNIQUE: Axial images of the abdomen and pelvis were obtained without IV contrast. Images were revi ewed in the axial, sagittal, and coronal planes. Automated exposure control was utilized for the tiffanie dy. A dose lowering technique was utilized adhering to the principles of ALARA. FINDINGS: Lower lungs are suboptimally assessed given respiratory motion. Mild airspace opacities are noted. Evaluation of the abdomen and pelvis is suboptimal on this unenhanced exam. No pneumatosis, f ree air or portal venous gas is present. There is no biliary ductal dilatation status post cholecyste ctomy. Small bowel anastomoses are noted as well as postoperative findings within the anterior abdomi nal wall. There is no evidence for a bowel obstruction. Unenhanced images of the liver, spleen, left adrenal gland and pancreas are unremarkable. A low-attenuation right adrenal nodule is unchanged sinc e CT of May 27, 2019. This is benign and favors an adenoma. Colonic diverticulosis is noted wit hout evidence for acute diverticulitis. There is a large amount stool within the rectum and a moderat e amount stool within the colon. There are no suspicious osseous lesions. No ascites. No hydronephros is is present. IMPRESSION: 1. No acute process within the abdomen or pelvis on unenhanced exam. No bowel obstruction. Large amou nt stool within the rectum and moderate amount stool within the colon. 2. Mild airspace opacities within the lower lungs which could reflect an infectious process, atelecta sis or pulmonary edema. ACT 112: Negative or not required by law. Electronically signed by: Francesco Sanders M.D. 12/13/2019 12:56 PM
--- NOTE | 2019-12-13 12:59 | Electrocardiogram Report ---
Test Reason : Blood Pressure : / mmHG Vent. Rate : 066 BPM Atrial Rate : 066 BPM P-R Int : 148 ms QRS Dur : 082 ms QT Int : 426 ms P-R-T Axes : 000 054 061 degrees QTc Int : 446 ms Poor data quality, interpretation may be adversely affected Normal sinus rhythm Normal ECG When compared with ECG of 06-DEC-2019 11:56, No significant change was found Confirmed by Javier Braga ([id number]) on 12/13/2019 12:58:42 PM Referred By: REFERRED SELF Confirmed By:Javier Braga
[2019-12-13 13:30] LABS: Appearance Urine Clear (Clear); Bilirubin Urine Negative (Negative); Blood Urine Negative (Negative); Color Urine Yellow; Glucose Urine UA Negative (Negative); Ketones Urine Negative (Negative); Leukocyte Esterase Urine Negative (Negative); Nitrite Urine Negative (Negative); Protein Urine Negative (Negative); Specific Gravity Urine 1.014 (1.000-1.030); Urobilinogen Urine Negative (Negative); pH Urine 7.5 (4.5-7.5)
--- NOTE | 2019-12-13 13:41 | Emergency Department Note ---
ED Visit Note Patient was seen and evaluated at the bedside w/ Radha Rivera PA-C. Please see their note for history, physical, details, and disposition. I did evaluate the patient at the bedside is there was concern for hypoxia. I did immediately place the patient on a nonrebreather and increasingly titrated his oxygen, spoke with respiratory therapist in order to place the patient on high flow nasal cannula given that the patient's pulse oximetry on 10 L via nonrebreather was in the high 80s. Patient had reportedly vomited prior to arrival. There is concern that the patient may have aspirated. The patient was suctioned and repositioned as well. Patient did have improvement in his hypoxia. Patient did a blood work completed along with his CT scans. He was started on antibiotics. Patient was subsequently mated to the medicine service. Critical Care: I have personally spent 45 minutes of critical care time in direct management of this patient. This includes bedside care, interpretation of diagnostic studies, and testing, discussion with consultants, patient, and family members, and other require inpatient management activities. This 45 minutes is in excess of all separately billable procedures. .
--- NOTE | 2019-12-13 13:56 | History & Physical Report ---
Date of Service December 13, 2019 Assessment & Plan (1) Syncope: Uncertain etiology Facility reports HR in the 30s at time of event, however was in the 60s with EMS monitoring ECHO last week was WNL with EF 60-65% Multiple CTs, MRI WNL Elevated WBC, see below PRP, trop WNL TSH, B12, folate, B1 checked with last admission and WNL ? PNA ? aspiration event Possible undx PAULA leading to syncope?? Overnight pulse ox pending If ongoing workup is negative, t/c 30 day event monitor given recurrent events (2) Elevated white blood cell count, unspecified: Uncertain etiology Aspiration noted with emesis in ED, CXR and CTAP noted for possible opacities Prior aspiration event? UA pending Blood cx pending Started on zosyn in the ED, will continue ST eval pending, NPO for now (3) Prostate cancer: Noted with likely mets to lungs (4) Parkinson's disease: continue home meds (5) Hyperlipidemia: continue home meds (6) Dementia: Nonverbal at baseline continue home meds (7) DVT prophylaxis: Lovenox for DVT proph History of Present Illness Primary Care Provider: [facility] 79 y/o M who was brought to [facility] from [facility] after a syncopal episode. Pt is nonverbal and supplies no hx. Per ED PA who spoke with , staff was reportedly trying to help pt get out of a chair when he crumpled to the ground. His heart rate was checked at that time and was reported to be in the 30s, however EMS states that it was in the 60s during their transport and monitoring. While in the ED, pt had an episode of emesis that lead to a choking/coughing episode. Pt was d/c'd from [facility] on 12/06 after workup from syncopal episode. ECHO, imaging, B12, folate, TSH, B1 WNL. He was seen by neurology at that time as well. Pt was seen in the ED on 12/10 s/p fall. Workup negative and returned to [facility] Allergies Allergy/AdvReac Type Severity Reaction Status Date / Time No Known Allergies Allergy Verified 12/13/19 11:37 Home Medications Home Medications Medication Instructions Recorded Confirmed Type aspirin 81 mg tablet,delayed 81 mg PO HS tab 05/28/19 12/13/19 History release cholecalciferol (vitamin D3) 25 1,000 units PO QAM cap 05/28/19 12/13/19 History mcg (1,000 unit) capsule cyanocobalamin (vitamin B-12) 1,000 mcg PO QAM #90 tab 05/28/19 12/13/19 History 1,000 mcg tablet metronidazole 0.75 % topical cream 1 appln TOP QAM 05/28/19 12/13/19 History pimavanserin 34 mg capsule 34 mg PO QAM 05/28/19 12/13/19 History pravastatin 40 mg tablet 40 mg PO HS tab 05/28/19 12/13/19 History psyllium husk 3.4 gram/5.4 gram 3.4 g PO QAM gm 05/28/19 12/13/19 History oral powder acetaminophen 500 mg tablet 500 - 1,000 mg PO TID PRN #90 tab 08/05/19 12/13/19 Rx bicalutamide 50 mg PO QAM 08/16/19 12/13/19 History pramipexole 1.5 mg PO QAM 08/16/19 12/13/19 History donepezil [Aricept] 5 mg PO HS 12/06/19 12/13/19 History carbidopa-levodopa 1.5 tab PO TIDM 12/11/19 12/13/19 History Past Med/Surg History Medical History Arthritis (Acute) Dementia (Acute) Hyperlipidemia (Chronic) Lung cancer (Acute) Mitral regurgitation Parkinson's disease (Chronic) Prostate cancer (Acute) Rosacea (Acute) Secondary cancer of lung (Acute) Urinary incontinence (Acute) Vision problem (Acute) Surgical History History of appendectomy History of cataract surgery History of cholecystectomy History of hernia repair History of intestinal surgery Family History Mother , Dementia in her early 90s Diabetes Cardiac disorder Gallbladder disease Dementia Father Cardiac disorder Diabetes Sister Hypertension Colon cancer Social History Preferred Language: Occitan Communication Ability: Impaired Frequency Checker Required: No Beliefs That Will Affect Care: None marital status: Current Living Situation: Personal Care Facility Current Living Situation Comment: [place] current occupational status: retired other: 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 Feels Safe at Home: Declines to Answer Smoking Status: Unknown if ever smoked Hx Alcohol Use: No Hx Substance Use: No Review of Systems Review of Systems: Pt is nonverbal, unable to obtain full ROS. Physical Exam Constitutional: WD/WN, vitals as above Eyes: normal visual martinez by confrontation and + anicteric sclerae Neck: normal visual inspection and trachea midline Respiratory: normal respiratory effort, lungs clear to auscultation Cardiovascular: Rate/Rhythm: regular rate and regular rhythm Gastrointestinal (Abdomen): Inspection/Auscultation: abdomen not distended Percussion/Palpation: abdomen soft; abdomen nontender Musculoskeletal: Head/Neck/Chest: normocephalic and head atraumatic negative for edema, peripheral pulses intact Skin: no rashes, warm and dry Neurologic: awake (opens eyes to voice) Speech / Cognition: + abnormal speech (nonverbal) Psychiatric: Orientation: alert (to name, closes eyes after initial alert response) Nursing reports that pt had some yes/no responses to her, but pt did not speak to me at all Results & Data Results & Data ([facility]) Vital Signs (Past 12 Hours) Vital Signs Temp Pulse Pulse Resp BP Pulse Ox 12/13/19 13:45 64 19 116/64 99 12/13/19 13:30 66 22 105/63 99 12/13/19 13:15 59 L 24 109/60 100 12/13/19 12:45 62 22 103/49 L 98 12/13/19 12:43 63 20 104/60 98 12/13/19 12:15 61 22 113/51 L 97 12/13/19 12:03 65 21 106/53 L 94 12/13/19 12:00 72 21 95 12/13/19 11:58 84 L 12/13/19 11:49 66 20 94 12/13/19 11:30 78 30 H 84 L 12/13/19 11:12 73 21 114/62 81 L 12/13/19 11:08 36.8 C 68 21 114/62 84 L Diagnostic Findings CXR: possible atelectesis CT head: neg for acute CTAP: neg AP, however opacities noted in lower lung martinez with ? etiology ECG Rhythm: normal sinus Code Status & VTE Plan Code Status Full code per ED physician who discussed via phone with VTE Prophylaxis Plan VTE Prophylaxis will be ordered: Yes PG Care Time/CCT Total # of Minutes Spent Total Time Spent with Patient: Total time spent is greater than 50% in coordination of care (as documented) at patient's floor/unit and/or counseling patient: Coding Level of Care Code 55496 Initial Inpt Care Lvl 3 Diagnoses Syncope R55 Syncope type: unspecified Elevated white blood cell count, unspecified D72.829 Prostate cancer C61 Parkinson's disease G20 Hyperlipidemia E78.5 Dementia F03.90 DVT prophylaxis Z29.9 (1) Syncope Syncope type: unspecified Qualified Code(s): R55 - Syncope and collapse
[2019-12-13] MEDS ORDERED: MAGNESIUM HYDROXIDE SUSP 30 ML UDC PO PRN (15:17)
[2019-12-13] MEDS ORDERED: ONDANSETRON INJ 2 MG/ML 2 ML VIAL IV PRN (15:17)
[2019-12-13] MEDS ORDERED: ACETAMINOPHEN 500 MG TAB PO PRN (15:17)
[2019-12-13] MEDS: NSS + 20MEQ KCL 20 MEQ/1,000 ML BAG IV SCH (16:18)
[2019-12-13] MEDS: CARBIDOPA/LEVODOPA 25/100MG TAB PO SCH (17:47)
[2019-12-13] MEDS: PIPERACILLIN/TAZOBACTAM 3.375 GM in DEXTROSE 5% 100 ML IV SCH (18:03)
[2019-12-13] MEDS ORDERED: ACETAMINOPHEN 1,000 MG/100 ML VIAL IV STA (19:17)
[2019-12-13] MEDS: DONEPEZIL HCL 5 MG TAB PO SCH (20:05)
[2019-12-13] MEDS: PRAVASTATIN SOD 40 MG TAB PO SCH (20:06)
[2019-12-13] MEDS: ASPIRIN 81 MG ECTAB PO SCH (20:06)
[2019-12-14] MEDS: PIPERACILLIN/TAZOBACTAM 3.375 GM in DEXTROSE 5% 100 ML IV SCH ×2 (02:22→10:36)
[2019-12-14] MEDS: NSS + 20MEQ KCL 20 MEQ/1,000 ML BAG IV SCH ×2 (05:04→17:38)
[2019-12-14 06:16] LABS: Basophils # (auto) 0.03 K/uL (0-0.2); Basophils % (auto) 0.2 %; Eosinophils # (auto) 0.03 K/uL (0-0.5); Eosinophils % (auto) 0.2 %; Hemoglobin 11.4 g/dL (14.0-18.0); Immature Granulocytes # (auto) 0.05 K/uL (0.00-0.02); Immature Granulocytes % (auto) 0.3 %; Lymphocytes # (auto) 1.42 K/uL (1.2-3.4); Lymphocytes % (auto) 7.2 %; Mean Corpuscular Hemoglobin 31.1 pg (25-34); Mean Corpuscular Hgb Conc 33.5 g/dL (32-36); Mean Corpuscular Volume 92.9 fL (80-100); Mean Platelet Volume 9.9 fL (7.4-10.4); Monocytes # (auto) 0.85 K/uL (0.11-0.59); Monocytes % (auto) 4.3 %; Neutrophils # (auto) 17.44 K/uL (1.4-6.5); Neutrophils % (auto) 87.8 %; Platelet Count 250 K/uL (130-400); RDW Coefficient of Variation 13.1 % (11.5-14.5); RDW Standard Deviation 44.3 fL (36.4-46.3); Red Blood Count 3.66 M/uL (4.7-6.1); White Blood Count 19.82 K/uL (4.8-10.8)
[2019-12-14] MEDS: CHOLECALCIFEROL 1,000 UNITS 25 MCG TAB PO SCH (07:41)
[2019-12-14] MEDS: PRAMIPEXOLE DIHYDROCHLO 0.5 MG TAB PO SCH (07:42)
[2019-12-14] MEDS: CYANOCOBALAMIN 500 MCG TABLET (VITAMIN B-12) PO SCH (07:42)
[2019-12-14] MEDS: CARBIDOPA/LEVODOPA 25/100MG TAB PO SCH ×4 (07:43→16:44)
[2019-12-14] MEDS: BICALUTAMIDE 50 MG TAB PO SCH (07:43)
[2019-12-14] MEDS: ENOXAPARIN INJ 40 MG/0.4 ML SYR SQ SCH (07:44)
[2019-12-14] MEDS: PSYLLIUM 58.6% POWDER PACKET PO SCH (07:45)
--- NOTE | 2019-12-14 11:33 | Hospitalist Progress Note ---
Date of Service December 14, 2019 Assessment & Plan (1) Syncope: Likely orthostatic hypotension vs. possible bradycardia-induced hypotension. Facility reports HR in the 30s at time of event, however was in the 60s with EMS monitoring. PRP, trop WNL. TSH, B12, folate, & B1 checked with last admission and WNL - Monitor on telemetry - Could consider event monitor, though unclear if patient really would be able to get a pacemaker given his dementia (2) Elevated white blood cell count, unspecified: Possibly due to aspiration noted with emesis in ED. - Blood cultures pending - Continue Zosyn - CARDIOLOGY NURSE eval pending (3) Prostate cancer: Follows with urology, s/p GnRH agonists, radiation therapy and XRT in 2009. Per report, he had lung involvement; however, PET CT chest from 05/2019 showed no active lung disease. - Continue bicalutamide daily as prescribed. Also receives Eligard injections [id number]. (4) Parkinson's disease: Initially diagnosed in 2009. Last seen in the hospital by Dr. Baca on 12/07/2019. - Continue home meds - Consider discussing with patient's normal neurologist Dr. Potts (5) Hyperlipidemia: - Continue home pravastatin (6) Dementia: Nonverbal at baseline. - Continue home meds (7) DVT prophylaxis: Lovenox 40 mg QAM daily Admission and Anticipated Discharge Date Admission Date: December 13, 2019 Subjective Patient is very tired today and doesn't open his eyes to verbal or physical stimulus. He does grunt somewhat to questions. Review of Systems Review of Systems: Unobtainable due to mental health condition and Unobtainable due to reduced consciousness Physical Exam Constitutional: WD/WN, vitals as above + frail appearing and + lethargic ENMT: external ear and nose normal, oropharynx normal Neck: trachea midline, no thyromegaly normal visual inspection Respiratory: normal respiratory effort, lungs clear to auscultation no respiratory distress Cardiovascular: RRR, no murmur, no edema Gastrointestinal (Abdomen): Inspection/Auscultation: abdomen normal to inspec tion; abdomen not distended Musculoskeletal: no cyanosis or clubbing, extremities motor strength 5/5 Skin: no rashes, warm and dry Neurologic: moves all extremities; + not awake Psychiatric: Orientation: + not alert and + not oriented to person Results & Data Results & Data ([facility]) Vital Signs (Past 12 Hours) Vital Signs Temp Pulse Pulse Resp BP Pulse Ox 12/14/19 06:54 36.8 C 72 18 156/67 H 94 12/14/19 03:48 36.8 C 84 20 104/59 L 94 12/14/19 00:32 92 H PG Care Time/CCT Total # of Minutes Spent Total Time Spent with Patient: Total time spent is greater than 50% in coordination of care (as documented) at patient's floor/unit and/or counseling patient: Coding Level of Care Code 35066 Subseq Hosp Care Lvl 3 Diagnoses Syncope R55 Syncope type: unspecified Elevated white blood cell count, unspecified D72.829 Prostate cancer C61 Parkinson's disease G20 Hyperlipidemia E78.5 Dementia F03.90 DVT prophylaxis Z29.9 (1) Syncope Syncope type: unspecified Qualified Code(s): R55 - Syncope and collapse
--- NOTE | 2019-12-14 14:17 | Palliative Care Consultation ---
Date of Consultation December 14, 2019 Assessment & Plan (1) Goals of care, counseling/discussion: -79 year old male patient with H Parkinson's dementia, nonverbal at baseline, arthritis, HLD, lung cancer, mitral regurgitation and others, presented to the hospital from [facility] dementia unit with c/o syncopal episode as well as episode of vomiting and possible aspiration. This is [facility]'s third hospital visit in a week for similar complaints. Patient previously had extensive neurologic workup and was continued on the appropriate medications for his dementia. It was reported that at [place], patient's heart rate was in the 30s, but this was has not been noted on EMS or hospital monitors. Patient may have aspirated when he vomited, as he was hypoxic upon arrival in the 80s. CXR did not show acute process, but CT abd/pelvis did show some developing bibasilar opacities which could represent infectious process. He is being treated for possible aspiration pneumonia. Oxygen saturation is improved and patient is now on 4L oxymask rather than 8L. However, patient remai ns lethargic and unable to wake enough to eat or drink. Given his multiple admissions to the hospital and advanced dementia, palliative care is consulted to discuss goals of care. -Met with patient in room 256-2. He is in no distress, but is extremely lethargic. With stating his name quite loudly several times and shaking his arm, patient was able to open eyes just a bit. He is nonverbal at baseline but he did try to mumble a few times. Unable to follow commands and did not track with eyes. -Called patient's , Nichole Bender ([phone]), and spoke with her at length. We discussed patient's current condition as well as his chronic issues such as the Parkinson's dementia. - states that at baseline, patient is still very physically able. He is able to ambulate, stands for much of the day while doing some activities at the [facility]. The issue is his cognitive status and speech. She reiterated that patient is mostly nonverbal. He fidgets a lot, picks at things, but is not combative. -We discussed how aggressive she would like to be with patient's care. For example, if there was in fact an electrical problem identified with the heart, would she want to go through with an event monitor and/or pacemaker if that was indicated. Felisa stated that she doesn't think patient would ever be able to tolerate a monitor being attached to him while he was fully awake, and she does want to avoid aggressive measures if possible. However, she would have to discuss this further before making final decisions. -Discussed code status. Initially, Felisa wanted patient to be a full code, but when we discussed what that entailed, she stated that she would NOT want patient to go through with that. Will transition to DO NOT RESUSCITATE. -Discussed a POLST form, and I emailed a PDF of the form to Felisa. She will return it to me if she fills it out, or she will address it with patient's PCP once he is able to follow up. Of note, Felisa stated that patient's PCP is to be changed to Dr. Solares in the near future-- it was to already have been done, but due to the COVID-19 restrictions, he hasn't been able to be seen yet. -For now, continue with current treatment and hope patient improves to baseline. -Our team will follow along. (2) Aspiration pneumonia: (3) Syncope: (4) Parkinson's disease: History of Present Illness Attending Physician: Amos Grey MD History of Present Illness This 79 year old male patient with H Parkinson's dementia, nonverbal at baseline, arthritis, HLD, lung cancer, mitral regurgitation and others, presented to the hospital from [facility] dementia unit with c/o syncopal episode as well as episode of vomiting and possible aspiration. This is [facility]'s third hospital visit in a week for similar complaints. Patient previously had extensive neurologic workup and was continued on the appropriate medications for his dementia. It was reported that at [place], patient's heart rate was in the 30s, but this was has not been noted on EMS or hospital monitors. Patient may have aspirated when he vomited, as he was hypoxic upon arrival in the 80s. CXR did not show acute process, but CT abd/pelvis did show some developing bibasilar opacities which could represent infectious process. He is being treated for possible aspiration pneumonia. Oxygen saturation is improved and patient is now on 4L oxymask rather than 8L. However, patient remains lethargic and unable to wake enough to eat or drink. Given his multiple admissions to the hospital and advanced dementia, palliative care is consulted to discuss goals of care. Thank you kindly for this consult. Palliative care team will follow as needed. Allergies Allergy/AdvReac Type Severity Reaction Status Date / Time No Known Allergies Allergy Verified 12/13/19 11:37 Home Medications Home Medications Medication Instructions Recorded Confirmed Type aspirin 81 mg tablet,delayed 81 mg PO HS tab 05/28/19 12/13/19 History release cholecalciferol (vitamin D3) 25 1,000 units PO QAM cap 05/28/19 12/13/19 History mcg (1,000 unit) capsule cyanocobalamin (vitamin B-12) 1,000 mcg PO QAM #90 tab 05/28/19 12/13/19 History 1,000 mcg tablet metronidazole 0.75 % topical cream 1 appln TOP QAM 05/28/19 12/13/19 History pimavanserin 34 mg capsule 34 mg PO QAM 05/28/19 12/13/19 History pravastatin 40 mg tablet 40 mg PO HS tab 05/28/19 12/13/19 History psyllium husk 3.4 gram/5.4 gram 3.4 g PO QAM gm 05/28/19 12/13/19 History oral powder acetaminophen 500 mg tablet 500 - 1,000 mg PO TID PRN #90 tab 08/05/19 12/13/19 Rx bicalutamide 50 mg PO QAM 08/16/19 12/13/19 History pramipexole 1.5 mg PO QAM 08/16/19 12/13/19 History donepezil [Aricept] 5 mg PO HS 12/06/19 12/13/19 History carbidopa-levodopa 1.5 tab PO TIDM 12/11/19 12/13/19 History Patient History Medical History Arthritis (Acute) Dementia (Acute) Hyperlipidemia (Chronic) Lung cancer (Acute) Mitral regurgitation Parkinson's disease (Chronic) Prostate cancer (Acute) Rosacea (Acute) Secondary cancer of lung (Acute) Urinary incontinence (Acute) Vision problem (Acute) Surgical History History of appendectomy History of cataract surgery History of cholecystectomy History of hernia repair History of intestinal surgery Family History Mother , Dementia in her early 90s Diabetes Cardiac disorder Gallbladder disease Dementia Father Cardiac disorder Diabetes Sister Hypertension Colon cancer Social History Preferred Language: Peruvian Communication Ability: Impaired Automotive Hardware Engineer Required: No Beliefs That Will Affect Care: None marital status: Current Living Situation: Personal Care Facility Current Living Situation Comment: [facility] current occupational status: retired Other Information That Helps Us Care for You: No other: 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 Feels Safe at Home: Yes Safety Concerns: Feels Safe At This Time Smoking Status: Never smoker Second Hand Exposure: No ; Hx Alcohol Use: No Hx Substance Use: No Review of Systems Review of Systems: Unobtainable due to cognitive status Physical Exam Constitutional: + ill appearing; no acute distress ENMT: external ear and nose normal, oropharynx normal Respiratory: normal respiratory effort, lungs clear to auscultation Auscultation: + diminished lung sounds Cardiovascular: Rate/Rhythm: regular rate and regular rhythm Gastrointestinal (Abdomen): Percussion/Palpation: abdomen soft; abdomen nontender Neurologic: moves all extremities and awake (but extremely lethargic) did not follow commands, barely opened eyes. Is nonverbal at baseline. Results & Data Vital Signs (Past 12 Hours) Vital Signs Temp Pulse Resp BP Pulse Ox 12/14/19 11:44 36.9 C 85 16 107/52 L 96 12/14/19 06:54 36.8 C 72 18 156/67 H 94 12/14/19 03:48 36.8 C 84 20 104/59 L 94 Coding Level of Care Code 86550 Inpt Consult Level 3 Diagnoses Goals of care, counseling/discussion Z71.89 Aspiration pneumonia J69.0 Syncope R55 Parkinson's disease G20 Time Spent (min) 80 Time Spent Midlevel A total of 80 minutes were spent by this TRAINING ADMINISTRATOR with >50% of the time spent at bedside with patient and on phone discuss with patient's , as well as speaking with attending physician.
[2019-12-14] MEDS: PATIENT'S HEIGHT AND/OR WEIGHT NEEDED SCH ×2 (15:39→15:40)
[2019-12-14] MEDS: AMPICILLIN/SULBACTAM SOD 3,000 MG in 0.9 % SODIUM CHLORIDE 100 ML IV SCH (18:54)
[2019-12-14] MEDS: PRAVASTATIN SOD 40 MG TAB PO SCH (20:32)
[2019-12-14] MEDS: DONEPEZIL HCL 5 MG TAB PO SCH (20:32)
[2019-12-14] MEDS: ASPIRIN 81 MG ECTAB PO SCH (20:32)
[2019-12-15] MEDS: AMPICILLIN/SULBACTAM SOD 3,000 MG in 0.9 % SODIUM CHLORIDE 100 ML IV SCH ×5 (00:12→23:30)
[2019-12-15] MEDS: NSS + 20MEQ KCL 20 MEQ/1,000 ML BAG IV SCH (05:10)
[2019-12-15 06:29] LABS: Hematocrit (blood only) 31.9 % (42-52); Hemoglobin 10.6 g/dL (14.0-18.0); Mean Corpuscular Hemoglobin 31.4 pg (25-34); Mean Corpuscular Hgb Conc 33.2 g/dL (32-36); Mean Corpuscular Volume 94.4 fL (80-100); Mean Platelet Volume 9.9 fL (7.4-10.4); Platelet Count 235 K/uL (130-400); RDW Coefficient of Variation 13.3 % (11.5-14.5); RDW Standard Deviation 45.8 fL (36.4-46.3); Red Blood Count 3.38 M/uL (4.7-6.1); White Blood Count 14.35 K/uL (4.8-10.8)
[2019-12-15 07:17] LABS: BUN Creatinine Ratio 25.3 (10-20); Calcium 8.6 mg/dl (8.5-10.1); Creatinine Clr Calc Pharmacy 70.7 ml/min; Est GFR (African American) 100.4; Est GFR (Non-African American) 86.6; Magnesium 2.1 mg/dl (1.8-2.4); Phosphorus 2.3 mg/dl (2.5-4.9); Potassium 3.9 mmol/L (3.5-5.1)
[2019-12-15] MEDS ORDERED: POTASSIUM PHOS 3 MMOL/1 ML INFUSION IV STA (07:38)
[2019-12-15] MEDS ORDERED: POTASSIUM PHOSPHATE 21 MMOL in SODIUM CHLORIDE 0.9% 500 ML IV ONE (08:00)
[2019-12-15] MEDS: CARBIDOPA/LEVODOPA 25/100MG TAB PO SCH ×3 (08:28→17:00)
[2019-12-15] MEDS: PSYLLIUM 58.6% POWDER PACKET PO SCH (08:29)
[2019-12-15] MEDS: ENOXAPARIN INJ 40 MG/0.4 ML SYR SQ SCH (08:29)
[2019-12-15] MEDS: BICALUTAMIDE 50 MG TAB PO SCH (08:29)
[2019-12-15] MEDS: PRAMIPEXOLE DIHYDROCHLO 0.5 MG TAB PO SCH (08:30)
[2019-12-15] MEDS: CYANOCOBALAMIN 500 MCG TABLET (VITAMIN B-12) PO SCH (08:30)
[2019-12-15] MEDS: CHOLECALCIFEROL 1,000 UNITS 25 MCG TAB PO SCH (08:30)
--- NOTE | 2019-12-15 13:12 | Hospitalist Progress Note ---
Date of Service December 15, 2019 Assessment & Plan (1) Syncope: Likely orthostatic hypotension vs. possible bradycardia-induced hypotension. Facility reports HR in the 30s at time of event, however was in the 60s with EMS monitoring. PRP, trop WNL. TSH, B12, folate, & B1 checked with last admission and WNL - Monitor on telemetry - Could consider event monitor, though unclear if patient really would be able to get a pacemaker given his dementia - PT/OT today (2) Elevated white blood cell count, unspecified: Possibly due to aspiration noted with emesis in ED. - Blood cultures from 12/12 are negative as of 12/14. - Continue Unasyn - CARDIAC REHABILITATION SPECIALIST evaluated -> Put on finger food diet. (3) Prostate cancer: Follows with urology, s/p GnRH agonists, radiation therapy and XRT in 2009. Per report, he had lung involvement; however, PET CT chest from 05/2019 showed no active lung disease. - Continue bicalutamide daily as prescribed. Also receives Eligard injections [id number]. (4) Parkinson's disease: Initially diagnosed in 2009. Last seen in the hospital by Dr. Baca on 12/07/2019. - Continue home meds (5) Hyperlipidemia: - Continue home pravastatin (6) Dementia: Non-verbal at baseline. - Continue home meds (7) DVT prophylaxis: Lovenox 40 mg QAM daily Admission and Anticipated Discharge Date Admission Date: December 13, 2019 Subjective Alert today. He is awake and manipulating the soft foam blocks with his hands. Review of Systems Review of Systems: Unobtainable due to cognitive status Physical Exam Constitutional: WD/WN, vitals as above + frail appearing; not lethargic ENMT: external ear and nose normal, oropharynx normal Neck: trachea midline, no thyromegaly normal visual inspection Respiratory: normal respiratory effort, lungs clear to auscultation no respiratory distress Cardiovascular: RRR, no murmur, no edema Gastrointestinal (Abdomen): Inspection/Auscultation: abdomen normal to inspection; abdomen not distended Musculoskeletal: no cyanosis or clubbing, extremities motor strength 5/5 Skin: no rashes, warm and dry Neurologic: moves all extremities and awake Psychiatric: Orientation: alert; + not oriented to person Results & Data Results & Data ([facility]) Vital Signs (Past 12 Hours) Vital Signs Temp Pulse Pulse Resp BP Pulse Ox 12/15/19 11:48 36.7 C 67 18 99/51 L 99 12/15/19 07:32 37 C 90 16 132/70 96 12/15/19 07:27 82 12/15/19 03:09 37.1 C 78 18 121/66 90 12/15/19 02:21 78 PG Care Time/CCT Total # of Minutes Spent Total Time Spent with Patient: Total time spent is greater than 50% in coordination of care (as documented) at patient's floor/unit and/or counseling patient: Coding Level of Care Code 66283 Subseq Hosp Care Lvl 2 Diagnoses Syncope R55 Syncope type: unspecified Elevated white blood cell count, unspecified D72.829 Prostate cancer C61 Parkinson's disease G20 Hyperlipidemia E78.5 Dementia F03.90 DVT prophylaxis Z29.9 (1) Syncope Syncope type: unspecified Qualified Code(s): R55 - Syncope and collapse
--- NOTE | 2019-12-15 13:24 | Palliative Care Progress Note ---
Date of Service December 15, 2019 Assessment & Plan (1) Goals of care, counseling/discussion: -Spoke with nursing staff. Patient seen and evaluated by palliative physician this afternoon. -Nursing reports patient is improved-- is more awake, able to say a word or two occasionally. Patient took pills in applesauce without issue. -Speech therapy is consulted for when patient is more awake and able to participate in swallow evaluation. states that she has never witnessed him coughing/choking during eating. However, she is aware that dysphagia is a common occurrence with advanced dementia. -No heart monitor events documented in [facility]-- no further bradycardia in vitals documentation. -Continues to be treated for possible aspiration pneumonia. WBCs improved from 19 to 14. -Is on Sinemet 25/100 1.5 tabs, on Aricept. Neurology previously mentioned Exelon patch, but patient is not currently on thsi. reports that neurologically and behaviorally, patient was doing well at [facility]. -Yesterday, patient as made DNR by his , Nichole. However, she would like to continue treatment at this time, while avoiding invasive/aggressive measures if possible. A POLST form was emailed to her and she is going to review. She is unsure if she'd like to complete this now or wait until she is able to see patient and visit PCP. -Case management spoke with [facility]. They state that patient may need SNF upon discharge. PT/OT are ordered. -FAST score 6c with 7a characteristics. PPS 50% at baseline prior to hospitalization. -We will continue to follow. (2) Aspiration pneumonia: (3) Syncope: (4) Parkinson's disease: Subjective Nursing reports that patient is much more awake today. Is sitting up, fidgeting, confused. Patient seen by palliative MD-- he seems to be returning to baseline. Results & Data Vital Signs (Past 12 Hours) Vital Signs Temp Pulse Pulse Resp BP Pulse Ox 12/15/19 11:48 36.7 C 67 18 99/51 L 99 12/15/19 07:32 37 C 90 16 132/70 96 12/15/19 07:27 82 12/15/19 03:09 37.1 C 78 18 121/66 90 12/15/19 02:21 78 Supervising Physician Co-Signing Physician Notes Patient seen and examined, collaborated with Brenda Cuba, CAT DOG OR OTHER PET GROOMER PE: Patient awake, alert, sitting up in bed, no acute distress HEENT: EOMI, hearing appears to be within normal limits Respirations: Unlabored, clear breath sounds bilaterally CV: Regular rate, no edema Extremities: Warm, moving upper extremities purposefully Neuro: Not oriented to person Agree with above note, assessment and plan as per BLANKA Harris will continue to follow and assist patient's with medical decision making. Coding Level of Care Code 93139 Subseq Hosp Care Lvl 3 Diagnoses Goals of care, counseling/discussion Z71.89 Aspiration pneumonia J69.0 Syncope R55 Parkinson's disease G20 Time Spent (min) 35 Time Spent Midlevel A total of 35 minutes spent by this PRESS MANAGER reviewing chart, speaking with case management, collaborating with palliative MD and speaking with family regarding plan of care.
[2019-12-15] MEDS: ASPIRIN 81 MG ECTAB PO SCH (20:13)
[2019-12-15] MEDS: PRAVASTATIN SOD 40 MG TAB PO SCH (20:13)
[2019-12-15] MEDS: DONEPEZIL HCL 5 MG TAB PO SCH (20:13)
[2019-12-16] MEDS: AMPICILLIN/SULBACTAM SOD 3,000 MG in 0.9 % SODIUM CHLORIDE 100 ML IV SCH ×2 (05:51→12:12)
[2019-12-16 06:02] LABS: Hematocrit (blood only) 30.3 % (42-52); Hemoglobin 10.4 g/dL (14.0-18.0); Mean Corpuscular Hemoglobin 31.5 pg (25-34); Mean Corpuscular Hgb Conc 34.3 g/dL (32-36); Mean Corpuscular Volume 91.8 fL (80-100); Mean Platelet Volume 9.6 fL (7.4-10.4); Platelet Count 232 K/uL (130-400); RDW Coefficient of Variation 12.7 % (11.5-14.5); RDW Standard Deviation 43.1 fL (36.4-46.3); White Blood Count 11.24 K/uL (4.8-10.8)
[2019-12-16 06:50] LABS: BUN Creatinine Ratio 16.9 (10-20); Calcium 8.5 mg/dl (8.5-10.1); Creatinine Clr Calc Pharmacy 77.5 ml/min; Est GFR (African American) 104.3; Potassium 3.8 mmol/L (3.5-5.1)
[2019-12-16] MEDS: CARBIDOPA/LEVODOPA 25/100MG TAB PO SCH ×3 (07:24→17:38)
[2019-12-16] MEDS: ENOXAPARIN INJ 40 MG/0.4 ML SYR SQ SCH (07:25)
[2019-12-16] MEDS: PSYLLIUM 58.6% POWDER PACKET PO SCH (07:25)
[2019-12-16] MEDS: PRAMIPEXOLE DIHYDROCHLO 0.5 MG TAB PO SCH (07:25)
[2019-12-16] MEDS: BICALUTAMIDE 50 MG TAB PO SCH (07:25)
[2019-12-16] MEDS: CHOLECALCIFEROL 1,000 UNITS 25 MCG TAB PO SCH (07:26)
[2019-12-16] MEDS: CYANOCOBALAMIN 500 MCG TABLET (VITAMIN B-12) PO SCH (07:26)
--- NOTE | 2019-12-16 18:19 | Hospitalist Progress Note ---
Date of Service December 16, 2019 Assessment & Plan (1) Syncope: Likely orthostatic hypotension vs. possible bradycardia-induced hypotension. Facility reports HR in the 30s at time of event, however was in the 60s with EMS monitoring. PRP, trop WNL. TSH, B12, folate, & B1 checked with last admission and WNL - Could consider event monitor, though unclear if patient really would be able to get a pacemaker given his dementia - PT/OT, follow for sx (2) Elevated white blood cell count, unspecified: Possibly due to aspiration noted with emesis in ED. - Blood cultures from 12/12 are negative as of 12/14. - now on augmentin, appears to be doing well - DIRECTOR CONSTRUCTION SERVICES evaluated -> Put on finger food diet. (3) Prostate cancer: Follows with urology, s/p GnRH agonists, radiation therapy and XRT in 2009. Per report, he had lung involvement; however, PET CT chest from 05/2019 showed no active lung disease. - Continue bicalutamide daily as prescribed. Also receives Eligard injections [id number]. (4) Parkinson's disease: Initially diagnosed in 2009. Last seen in the hospital by Dr. Baca on 12/07/2019. - Continue home meds (5) Hyperlipidemia: - Continue home pravastatin (6) Dementia: Non-verbal at baseline. - Continue home meds (7) DVT prophylaxis: Lovenox 40 mg QAM daily Admission and Anticipated Discharge Date Admission Date: December 13, 2019 Subjective no meaningful HPI or ROS - seen twice - sleeping then later eating - CAN PILER noted he was doing well. Review of Systems Review of Systems: Unobtainable due to cognitive status Physical Exam Physical Exam: gen pleasant nad heent nc at mmm breathing unlabored no accessory muscles no cough good effort skin no rashes no pallor or icterus neuro no focal deficits Results & Data Results & Data ([facility]) Vital Signs (Past 12 Hours) Vital Signs Temp Pulse Pulse Resp BP Pulse Ox 12/16/19 15:17 98.1 F 64 17 119/61 96 12/16/19 11:25 98.1 F 71 18 133/65 94 12/16/19 11:07 67 12/16/19 07:10 98.1 F 71 18 131/69 93 PG Care Time/CCT Total # of Minutes Spent Total Time Spent with Patient: Total time spent is greater than 50% in coordination of care (as documented) at patient's floor/unit and/or counseling patient: Coding Level of Care Code 18524 Subseq Hosp Care Lvl 2 Diagnoses Syncope R55 Syncope type: unspecified Elevated white blood cell count, unspecified D72.829 Prostate cancer C61 Parkinson's disease G20 Hyperlipidemia E78.5 Dementia F03.90 DVT prophylaxis Z29.9 (1) Syncope Syncope type: unspecified Qualified Code(s): R55 - Syncope and collapse
[2019-12-16] MEDS: AMOXICILLIN/CLAVULANATE 875 MG TAB PO SCH (20:45)
[2019-12-16] MEDS: ASPIRIN 81 MG ECTAB PO SCH (20:46)
[2019-12-16] MEDS: PRAVASTATIN SOD 40 MG TAB PO SCH (20:46)
[2019-12-16] MEDS: DONEPEZIL HCL 5 MG TAB PO SCH (20:46)
[2019-12-17] MEDS: AMOXICILLIN/CLAVULANATE 875 MG TAB PO SCH ×2 (08:18→20:11)
[2019-12-17] MEDS: CARBIDOPA/LEVODOPA 25/100MG TAB PO SCH ×3 (08:18→16:58)
[2019-12-17] MEDS: ENOXAPARIN INJ 40 MG/0.4 ML SYR SQ SCH (08:19)
[2019-12-17] MEDS: PSYLLIUM 58.6% POWDER PACKET PO SCH (08:19)
[2019-12-17] MEDS: CHOLECALCIFEROL 1,000 UNITS 25 MCG TAB PO SCH (08:19)
[2019-12-17] MEDS: BICALUTAMIDE 50 MG TAB PO SCH (08:19)
[2019-12-17] MEDS: PRAMIPEXOLE DIHYDROCHLO 0.5 MG TAB PO SCH (08:19)
[2019-12-17] MEDS: CYANOCOBALAMIN 500 MCG TABLET (VITAMIN B-12) PO SCH (08:19)
--- NOTE | 2019-12-17 14:56 | Hospitalist Progress Note ---
Date of Service December 17, 2019 Assessment & Plan (1) Syncope: Likely orthostatic hypotension vs. possible bradycardia-induced hypotension. Facility reports HR in the 30s at time of event, however was in the 60s with EMS monitoring. PRP, trop WNL. TSH, B12, folate, & B1 checked with last admission and WNL - Could consider event monitor, though unclear if patient really would be able to get a pacemaker given his dementia - overall HR has appeared quite stable - 54 this AM was the lowest in a while; did not appear symptomatic with this. (2) Elevated white blood cell count, unspecified: Possibly due to aspiration noted with emesis in ED. - Blood cultures from 12/12 are negative as of 12/14. - now on augmentin, appears to be doing well - will do 5-7 days (right now favor 5, which would end abx tomorrow) - OCEANOGRAPHIC METEOROLOGIST evaluated -> Put on finger food diet. (3) Prostate cancer: Follows with urology, s/p GnRH agonists, radiation therapy and XRT in 2009. Per report, he had lung involvement; however, PET CT chest from 05/2019 showed no active lung disease. - Continue bicalutamide daily as prescribed. Also receives Eligard injections [id number]. (4) Parkinson's disease: Initially diagnosed in 2009. Last seen in the hospital by Dr. Baca on 12/07/2019. - Continue home meds (5) Hyperlipidemia: - Continue home pravastatin (6) Dementia: Non-verbal at baseline. - Continue home meds (7) DVT prophylaxis: Lovenox 40 mg QAM daily Admission and Anticipated Discharge Date Admission Date: December 13, 2019 Subjective no meaningful HPI or ROS. no new problems by nursing updated , answered all questions to the best of my ability Review of Systems Review of Systems: All systems reviewed & are unremarkable except as noted in HPI & below Physical Exam Physical Exam: gen nad heent nc at mmm breathing unlabored no accessory muscles good effort skin no rashes no pallor or icterus neuro no focal deficits Results & Data Results & Data ([place]) Vital Signs (Past 12 Hours) Vital Signs Temp Pulse Pulse Resp BP BP Pulse Ox 12/17/19 12:26 98.2 F 73 18 125/40 L 94 12/17/19 08:50 54 L 12/17/19 07:05 99.5 F 69 18 144/75 H 95 04/04/20 04:33 98.8 F 72 16 152/69 H 93 PG Care Time/CCT Total # of Minutes Spent Total Time Spent with Patient: Total time spent is greater than 50% in coordination of care (as documented) at patient's floor/unit and/or counseling patient: Coding Level of Care Code 62301 Subseq Hosp Care Lvl 2 Diagnoses Syncope R55 Syncope type: unspecified Elevated white blood cell count, unspecified D72.829 Prostate cancer C61 Parkinson's disease G20 Hyperlipidemia E78.5 Dementia F03.90 DVT prophylaxis Z29.9 (1) Syncope Syncope type: unspecified Qualified Code(s): R55 - Syncope and collapse
[2019-12-17] MEDS: PRAVASTATIN SOD 40 MG TAB PO SCH (20:11)
[2019-12-17] MEDS: ASPIRIN 81 MG ECTAB PO SCH (20:12)
[2019-12-17] MEDS: DONEPEZIL HCL 5 MG TAB PO SCH (20:12)
[2019-12-18] MEDS: AMOXICILLIN/CLAVULANATE 875 MG TAB PO SCH (07:48)
[2019-12-18] MEDS: PRAMIPEXOLE DIHYDROCHLO 0.5 MG TAB PO SCH (07:51)
[2019-12-18] MEDS: BICALUTAMIDE 50 MG TAB PO SCH (07:51)
[2019-12-18] MEDS: CARBIDOPA/LEVODOPA 25/100MG TAB PO SCH ×3 (07:52→17:05)
[2019-12-18] MEDS: CYANOCOBALAMIN 500 MCG TABLET (VITAMIN B-12) PO SCH (07:53)
[2019-12-18] MEDS: CHOLECALCIFEROL 1,000 UNITS 25 MCG TAB PO SCH (07:54)
[2019-12-18] MEDS: PSYLLIUM 58.6% POWDER PACKET PO SCH (07:55)
[2019-12-18] MEDS: ENOXAPARIN INJ 40 MG/0.4 ML SYR SQ SCH (07:55)
--- NOTE | 2019-12-18 16:41 | Hospitalist Progress Note ---
Date of Service December 18, 2019 Assessment & Plan (1) Syncope: Likely orthostatic hypotension vs. possible bradycardia-induced hypotension. Facility reports HR in the 30s at time of event, however was in the 60s with EMS monitoring. PRP, trop WNL. TSH, B12, folate, & B1 checked with last admission and WNL - Could consider event monitor, though unclear if patient really would be able to get a pacemaker given his dementia - overall HR has appeared quite stable, would not intervene further unless new issues arise (2) Elevated white blood cell count, unspecified: Possibly due to aspiration noted with emesis in ED. - Blood cultures from 12/12 are negative as of 12/14. - was on augmentin, appears to be doing well - treated for 5 days and stopped 4/5 - CONTRACTS PARALEGAL evaluated -> Put on finger food diet. (3) Prostate cancer: Follows with urology, s/p GnRH agonists, radiation therapy and XRT in 2009. Per report, he had lung involvement; however, PET CT chest from 05/2019 showed no active lung disease. - Continue bicalutamide daily as prescribed. Also receives Eligard injections [id number]. (4) Parkinson's disease: Initially diagnosed in 2009. Last seen in the hospital by Dr. Baca on 12/07/2019. - Continue home meds - seems to be a dominant reason for his overall decline (5) Hyperlipidemia: - Continue home pravastatin (6) Dementia: Non-verbal at baseline. - Continue home meds (7) DVT prophylaxis: Lovenox 40 mg QAM daily (8) Discharge planning issues: for SNF once available - most likely either 12/18 or 12/19 - case management working on this. personally updated 12/16, no new issues have arisen since Admission and Anticipated Discharge Date Admission Date: December 13, 2019 Subjective no meaningful HPI or ROS. no problems noted. Review of Systems Review of Systems: Unobtainable due to cognitive status Physical Exam Physical Exam: gen pleasant nad heent nc at mmm breathing unlabored no acces nikita muscles good effort skin no rashes no pallor or icterus Results & Data Results & Data ([facility]) Vital Signs (Past 12 Hours) Vital Signs Temp Pulse Pulse Resp BP Pulse Ox 12/18/19 16:13 98.2 F 66 16 107/39 L 98 12/18/19 15:05 57 L 12/18/19 11:15 97.9 F 63 16 99/58 L 96 12/18/19 08:00 71 12/18/19 07:22 98.4 F 67 20 141/73 H 95 PG Care Time/CCT Total # of Minutes Spent Total Time Spent with Patient: Total time spent is greater than 50% in coordination of care (as documented) at patient's floor/unit and/or counseling patient: Coding Level of Care Code 48167 Subseq Hosp Care Lvl 2 Diagnoses Syncope R55 Syncope type: unspecified Elevated white blood cell count, unspecified D72.829 Prostate cancer C61 Parkinson's disease G20 Hyperlipidemia E78.5 Dementia F03.90 DVT prophylaxis Z29.9 Discharge planning issues Z02.9 (1) Syncope Syncope type: unspecified Qualified Code(s): R55 - Syncope and collapse
[2019-12-18] MEDS: ASPIRIN 81 MG ECTAB PO SCH (22:02)
[2019-12-18] MEDS: DONEPEZIL HCL 5 MG TAB PO SCH (22:02)
[2019-12-18] MEDS: PRAVASTATIN SOD 40 MG TAB PO SCH (22:02)
[2019-12-19 06:37] LABS: Creatinine Clr Calc Pharmacy 68.9 ml/min; Est GFR (African American) 99.4; Est GFR (Non-African American) 85.7
[2019-12-19] MEDS: CYANOCOBALAMIN 500 MCG TABLET (VITAMIN B-12) PO SCH (09:08)
[2019-12-19] MEDS: PSYLLIUM 58.6% POWDER PACKET PO SCH (09:08)
[2019-12-19] MEDS: PRAMIPEXOLE DIHYDROCHLO 0.5 MG TAB PO SCH (09:09)
[2019-12-19] MEDS: CARBIDOPA/LEVODOPA 25/100MG TAB PO SCH ×3 (09:09→16:54)
[2019-12-19] MEDS: CHOLECALCIFEROL 1,000 UNITS 25 MCG TAB PO SCH (09:09)
[2019-12-19] MEDS: BICALUTAMIDE 50 MG TAB PO SCH (09:10)
[2019-12-19] MEDS: ENOXAPARIN INJ 40 MG/0.4 ML SYR SQ SCH (09:10)
--- NOTE | 2019-12-19 11:58 | Palliative Care Progress Note ---
Date of Service December 19, 2019 Assessment & Plan (1) Goals of care, counseling/discussion: -Per documentation, patient has returned to his baseline mental status. Which is confused by cooperative. However, patient has not been cooperative with working with PT/OT or getting out of bed. Unfortunately, [facility] is unable to accept him back. -Plan is for admission to SNF, trying currently for [facility]. Case management is coordinating discharge. Plan will likely be for patient to stay there long-term. -Patient was placed on finger food diet by PUBLIC POLICY PROFESSOR-- no further aspiration issues. -No further issues on heart monitor. No need for further workup of heart rate unless new issue arises. -Spoke with patient's , Felisa. She is having a hard time not being able to see patient due to COVID-19 pandemic. She is feeling slightly overwhelmed, but is also understanding of why patient is unable to return to [facility]. She is hopeful that patient's strength and functional status will improve closer to his baseline once he is settled into his new environment. Felisa also fully u nderstands that patient may have a new baseline. Again, she wishes for him to be comfortable and have a decent quality of life. -She did receive my email with POLST form-- she will discuss this with patient's PCP eventually when he is able to be seen -NO further questions/concerns from patient's . Palliative care will sign off. Discharge is expected today or tomorrow. -FAST score currently 7a. PPS now 30%, was 50% prior to hospitalization. (2) Aspiration pneumonia: (3) Syncope: (4) Parkinson's disease: Subjective Chart reviewed. Spoke with patient's , Felisa, on phone. Per documentation, patient is improved and to his baseline mental status. However, he has not been getting out of bed or able to return to his normal functional status. Patient seen and examined by palliative MD this afternoon. Results & Data Vital Signs (Past 12 Hours) Vital Signs Temp Pulse Pulse Resp BP Pulse Ox 12/19/19 11:14 36.6 C 63 18 99/61 L 93 12/19/19 07:44 75 12/19/19 07:24 36.3 C L 66 18 144/72 H 95 12/18/19 23:45 36.7 C 82 19 116/60 95 Supervising Physician Co-Signing Physician Notes Patient seen and examined, collaborated with BLANKA Harris PE: Patient awake, alert, sitting up in bed, no acute distress HEENT: EOMI, hearing appears to be within normal limits Respirations: Unlabored, clear breath sounds bilaterally CV: Regular rate, no edema Extremities: Warm, moving upper extremities purposefully Neuro: Not oriented to person Agree with above note, assessment and plan as per BLANKA Harris will continue to follow and assist patient's with medical decision making. Coding Level of Care Code 89638 Subseq Hosp Care Lvl 2 Diagnoses Goals of care, counseling/discussion Z71.89 Aspiration pneumonia J69.0 Syncope R55 Parkinson's disease G20 Time Spent (min) 25 Time Spent Midlevel A total of 25 minutes spent by this SUPERVISOR MAINTENANCE AND CUSTODIANS reviewing chart, collaborating with palliative MD and speaking with patient's regarding plan of care.
[2019-12-19] MEDS: PRAVASTATIN SOD 40 MG TAB PO SCH (21:01)
[2019-12-19] MEDS: ASPIRIN 81 MG ECTAB PO SCH (21:01)
[2019-12-19] MEDS: DONEPEZIL HCL 5 MG TAB PO SCH (21:02)
--- NOTE | 2019-12-19 22:04 | Hospitalist Progress Note ---
Date of Service December 19, 2019 Assessment & Plan (1) Syncope: Likely orthostatic hypotension vs. possible bradycardia-induced hypotension. Facility reports HR in the 30s at time of event, however was in the 60s with EMS monitoring. PRP, trop WNL. TSH, B12, folate, & B1 checked with last admission and WNL - Could consider event monitor, though unclear if patient really would be able to get a pacemaker given his dementia - overall HR has appeared quite stable, would not intervene further unless new issues arise. -No change in plan. (2) Elevated white blood cell count, unspecified: Possibly due to aspiration noted with emesis in ED. - Blood cultures from 12/12 are negative as of 12/14. - was on augmentin, appears to be doing well - treated for 5 days and stopped 12/17 - BUSINESS TRAVEL CONSULTANT evaluated -> Put on finger food diet. (3) Prostate cancer: Follows with urology, s/p GnRH agonists, radiation therapy and XRT in 2009. Per report, he had lung involvement; however, PET CT chest from 05/2019 showed no active lung disease. - Continue bicalutamide daily as prescribed. Also receives Eligard injections [id number]. (4) Parkinson's disease: Initially diagnosed in 2009. Last seen in the hospital by Dr. Baca on 12/07/2019. - Continue home meds - seems to be a dominant reason for his overall decline (5) Hyperlipidemia: - Continue home pravastatin (6) Dementia: Non-verbal at baseline. - Continue home meds (7) DVT prophylaxis: Lovenox 40 mg QAM daily (8) Discharge planning issues: for SNF once available - most likely 12/19 - case management working on this. personally updated 12/16, no new issues have arisen since Admission and Anticipated Discharge Date Admission Date: December 13, 2019 Subjective Patient is non verbal. Does not provide significant history. Review of Systems Review of Systems: All systems reviewed & are unremarkable except as noted in HPI & below Physical Exam Physical Exam: Patient was lying in bed. HEENT: NAD Respi: Breathing un labored, lungs appear clear, no use of accesory muscles.. Heart: RRR, Normal: S1, S2. Skin: no rashes no pallor or icterus Results & Data Results & Data ([facility]) Vital Signs (Past 12 Hours) Vital Signs Temp Pulse Pulse Resp BP Pulse Ox 12/19/19 18:57 37.6 C H 78 20 106/65 98 12/19/19 16:00 72 12/19/19 15:29 36.5 C 74 20 120/68 95 12/19/19 11:14 36.6 C 63 18 99/61 L 93 PG Care Time/CCT Total # of Minutes Spent Total Time Spent with Patient: Total time spent is greater than 50% in coordination of care (as documented) at patient's floor/unit and/or counseling patient: Coding Level of Care Code 16408 Subseq Hosp Care Lvl 2 Diagnoses Syncope R55 Syncope type: unspecified Elevated white blood cell count, unspecified D72.829 Prostate cancer C61 Parkinson's disease G20 Hyperlipidemia E78.5 Dementia F03.90 DVT prophylaxis Z29.9 Discharge planning issues Z02.9 Time Spent (min) 25 Comment chart review (1) Syncope Syncope type: unspecified Qualified Code(s): R55 - Syncope and collapse
[2019-12-20] MEDS: PRAMIPEXOLE DIHYDROCHLO 0.5 MG TAB PO SCH (09:15)
[2019-12-20] MEDS: ENOXAPARIN INJ 40 MG/0.4 ML SYR SQ SCH (09:16)
[2019-12-20] MEDS: PSYLLIUM 58.6% POWDER PACKET PO SCH (09:16)
[2019-12-20] MEDS: CARBIDOPA/LEVODOPA 25/100MG TAB PO SCH ×3 (09:17→17:45)
[2019-12-20] MEDS: BICALUTAMIDE 50 MG TAB PO SCH (09:17)
[2019-12-20] MEDS: CHOLECALCIFEROL 1,000 UNITS 25 MCG TAB PO SCH (09:18)
[2019-12-20] MEDS: CYANOCOBALAMIN 500 MCG TABLET (VITAMIN B-12) PO SCH (09:18)
[2019-12-20] MEDS: DONEPEZIL HCL 5 MG TAB PO SCH (21:17)
[2019-12-20] MEDS: PRAVASTATIN SOD 40 MG TAB PO SCH (21:17)
[2019-12-20] MEDS: ASPIRIN 81 MG ECTAB PO SCH (21:17)
--- NOTE | 2019-12-20 22:25 | Hospitalist Progress Note ---
Date of Service December 20, 2019 Assessment & Plan (1) Syncope: Likely orthostatic hypotension vs. possible bradycardia-induced hypotension. Facility reports HR in the 30s at time of event, however was in the 60s with EMS monitoring. PRP, trop WNL. TSH, B12, folate, & B1 checked with last admission and WNL - Could consider event monitor, though unclear if patient really would be able to get a pacemaker given his dementia - overall HR has appeared quite stable, would not intervene further unless new issues arise. -No change in plan. -awaiting placement. (2) Elevated white blood cell count, unspecified: Possibly due to aspiration noted with emesis in ED. - Blood cultures from 12/12 are negative as of 12/14. - was on augmentin, appears to be doing well - treated for 5 days and stopped 12/17 - LABORATORY CHEMIST evaluated -> Put on finger food diet. (3) Prostate cancer: Follows with urology, s/p GnRH agonists, radiation therapy and XRT in 2009. Per report, he had lung involvement; however, PET CT chest from 05/2019 showed no active lung disease. - Continue bicalutamide daily as prescribed. Also receives Eligard injections [id number]. (4) Parkinson's disease: Initially diagnosed in 2009. Last seen in the hospital by Dr. Baca on 12/07/2019. - Continue home meds - seems to be a dominant reason for his overall decline (5) Hyperlipidemia: - Continue home pravastatin (6) Dementia: Non-verbal at baseline. - Continue home meds (7) DVT prophylaxis: Lovenox 40 mg QAM daily (8) Discharge planning issues: for SNF once available - most likely 12/19 - case management working on this. personally updated 12/16, no new issues have arisen since Admission and Anticipated Discharge Date Admission Date: December 13, 2019 Subjective 79 yo male is nonverbal. Does not provide significant history. Review of Systems Review of Systems: Unobtainable due to cognitive status Physical Exam Physical Exam: Patient was lying in bed. HEENT: NAD Respi: Breathing un labored, lungs appear clear, no use of accesory muscles.. Heart: RRR, Normal: S1, S2. Skin: no rashes no pallor or icterus Results & Data Results & Data ([facility]) Vital Signs (Past 12 Hours) Vital Signs Temp Pulse Pulse Resp BP BP Pulse Ox 12/20/19 19:22 37 C 84 17 107/59 L 90 12/20/19 15:31 54 L 12/20/19 15:29 36.3 C L 63 18 99/50 L 92 12/20/19 11:53 60 12/20/19 11:23 36.8 C 94 H 20 105/63 90 PG Care Time/CCT Total # of Minutes Spent Total Time Spent with Patient: Total time spent is greater than 50% in coordi nation of care (as documented) at patient's floor/unit and/or counseling patient: Coding Level of Care Code 70102 Subseq Hosp Care Lvl 2 Diagnoses Syncope R55 Syncope type: unspecified Elevated white blood cell count, unspecified D72.829 Prostate cancer C61 Parkinson's disease G20 Hyperlipidemia E78.5 Dementia F03.90 DVT prophylaxis Z29.9 Discharge planning issues Z02.9 (1) Syncope Syncope type: unspecified Qualified Code(s): R55 - Syncope and collapse
[2019-12-21 05:58] LABS: Hematocrit (blood only) 37.6 % (42-52); Hemoglobin 12.4 g/dL (14.0-18.0); Mean Corpuscular Hemoglobin 30.5 pg (25-34); Mean Corpuscular Volume 92.6 fL (80-100); Platelet Count 355 K/uL (130-400); RDW Coefficient of Variation 12.7 % (11.5-14.5); RDW Standard Deviation 42.8 fL (36.4-46.3); Red Blood Count 4.06 M/uL (4.7-6.1)
[2019-12-21 06:33] LABS: BUN Creatinine Ratio 30.3 (10-20); Calcium 9.3 mg/dl (8.5-10.1); Creatinine Clr Calc Pharmacy 67.3 ml/min; Est GFR (African American) 98.4; Est GFR (Non-African American) 84.9; Potassium 4.3 mmol/L (3.5-5.1)
[2019-12-21] MEDS: CARBIDOPA/LEVODOPA 25/100MG TAB PO SCH ×3 (10:36→17:09)
[2019-12-21] MEDS: BICALUTAMIDE 50 MG TAB PO SCH (10:37)
[2019-12-21] MEDS: PRAMIPEXOLE DIHYDROCHLO 0.5 MG TAB PO SCH (10:38)
[2019-12-21] MEDS: CYANOCOBALAMIN 500 MCG TABLET (VITAMIN B-12) PO SCH (10:38)
[2019-12-21] MEDS: PSYLLIUM 58.6% POWDER PACKET PO SCH (10:38)
[2019-12-21] MEDS: ENOXAPARIN INJ 40 MG/0.4 ML SYR SQ SCH (10:38)
[2019-12-21] MEDS: CHOLECALCIFEROL 1,000 UNITS 25 MCG TAB PO SCH (10:39)
[2019-12-21] MEDS: ASPIRIN 81 MG ECTAB PO SCH (20:11)
[2019-12-21] MEDS: PRAVASTATIN SOD 40 MG TAB PO SCH (20:11)
[2019-12-21] MEDS: DONEPEZIL HCL 5 MG TAB PO SCH (20:11)
--- NOTE | 2019-12-21 21:49 | Hospitalist Progress Note ---
Date of Service December 21, 2019 Assessment & Plan (1) Syncope: Likely orthostatic hypotension vs. possible bradycardia-induced hypotension. Facility reports HR in the 30s at time of event, however was in the 60s with EMS monitoring. PRP, trop WNL. TSH, B12, folate, & B1 checked with last admission and WNL - Could consider event monitor, though unclear if patient really would be able to get a pacemaker given his dementia - overall HR has appeared quite stable, would not intervene further unless new issues arise. -No change in plan. -awaiting placement. (2) Elevated white blood cell count, unspecified: Possibly due to aspiration noted with emesis in ED. - Blood cultures from 12/12 are negative as of 12/14. - was on augmentin, appears to be doing well - treated for 5 days and stopped 12/17 - RN PLACEMENT evaluated -> Put on finger food diet. (3) Prostate cancer: Follows with urology, s/p GnRH agonists, radiation therapy and XRT in 2009. Per report, he had lung involvement; however, PET CT chest from 05/2019 showed no active lung disease. - Continue bicalutamide daily as prescribed. Also receives Eligard injections [id number]. (4) Parkinson's disease: Initially diagnosed in 2009. Last seen in the hospital by Dr. Baca on 12/07/2019. - Continue home meds - seems to be a dominant reason for his overall decline (5) Hyperlipidemia: - Continue home pravastatin (6) Dementia: Non-verbal at baseline. - Continue home meds (7) DVT prophylaxis: Lovenox 40 mg QAM daily (8) Discharge planning issues: for SNF once available - most likely 12/21 - case management working on this. personally updated 12/16, no new issues have arisen since Admission and Anticipated Discharge Date Admission Date: December 13, 2019 Subjective 79 yo male does not provide significant history. Updated his . Review of Systems Review of Systems: All systems reviewed & are unremarkable except as noted in HPI & below Physical Exam Physical Exam: Patient was lying in bed. HEENT: NAD Respi: Breathing un labored, lungs appear clear, no use of accesory muscles.. Heart: RRR, Normal: S1, S2. Skin: no rashes no pallor or icterus Results & Data Results & Data ([facility]) Vital Signs (Past 12 Hours) Vital Signs Temp Pulse Pulse Resp BP Pulse Ox 12/21/19 19:27 36.6 C 92 H 20 156/66 H 96 12/21/19 15:20 73 12/21/19 14:45 73 20 107/65 96 12/21/19 11:39 37.1 C 72 20 144/70 H 97 PG Care Time/CCT Total # of Minutes Spent Total Time Spent with Patient: Total time spent is greater than 50% in coordination of care (as documented) at patient's floor/unit and/or counseling patient: Coding Level of Care Code 93196 Subseq Hosp Care Lvl 1 Diagnoses Syncope R55 Syncope type: unspecified Elevated white blood cell count, unspecified D72.829 Prostate cancer C61 Parkinson's disease G20 Hyperlipidemia E78.5 Dementia F03.90 DVT prophylaxis Z29.9 Discharge planning issues Z02.9 (1) Syncope Syncope type: unspecified Qualified Code(s): R55 - Syncope and collapse
[2019-12-22 07:51] LABS: Creatinine Clr Calc Pharmacy 70.7 ml/min; Est GFR (African American) 100.4; Est GFR (Non-African American) 86.6
[2019-12-22] MEDS: CARBIDOPA/LEVODOPA 25/100MG TAB PO SCH ×3 (09:25→16:57)
[2019-12-22] MEDS: PSYLLIUM 58.6% POWDER PACKET PO SCH (09:26)
[2019-12-22] MEDS: CYANOCOBALAMIN 500 MCG TABLET (VITAMIN B-12) PO SCH (09:26)
[2019-12-22] MEDS: CHOLECALCIFEROL 1,000 UNITS 25 MCG TAB PO SCH (09:26)
[2019-12-22] MEDS: BICALUTAMIDE 50 MG TAB PO SCH (09:26)
[2019-12-22] MEDS: PRAMIPEXOLE DIHYDROCHLO 0.5 MG TAB PO SCH (09:26)
[2019-12-22] MEDS: ENOXAPARIN INJ 40 MG/0.4 ML SYR SQ SCH (09:27)
[2019-12-22] MEDS: DONEPEZIL HCL 5 MG TAB PO SCH (19:57)
[2019-12-22] MEDS: PRAVASTATIN SOD 40 MG TAB PO SCH (19:57)
[2019-12-22] MEDS: ASPIRIN 81 MG ECTAB PO SCH (19:58)
--- NOTE | 2019-12-22 23:02 | Hospitalist Progress Note ---
Date of Service December 22, 2019 Assessment & Plan (1) Syncope: Likely orthostatic hypotension vs. possible bradycardia-induced hypotension. Facility reports HR in the 30s at time of event, however was in the 60s with EMS monitoring. PRP, trop WNL. TSH, B12, folate, & B1 checked with last admission and WNL - Could consider event monitor, though unclear if patient really would be able to get a pacemaker given his dementia - overall HR has appeared quite stable, would not intervene further unless new issues arise. -No change in plan. -awaiting placement. -Discharge likely for tomorrow. Updated family. spoke with case management. (2) Elevated white blood cell count, unspecified: Possibly due to aspiration noted with emesis in ED. - Blood cultures from 12/12 are negative as of 12/14. - was on augmentin, appears to be doing well - treated for 5 days and stopped 12/17 - G[employer] SUPERVISOR evaluated -> Put on finger food diet. (3) Prostate cancer: Follows with urology, s/p GnRH agonists, radiation therapy and XRT in 2009. Per report, he had lung involvement; however, PET CT chest from 05/2019 showed no active lung disease. - Continue bicalutamide daily as prescribed. Also receives Eligard injections [id number]. (4) Parkinson's disease: Initially diagnosed in 2009. Last seen in the hospital by Dr. Baca on 12/07/2019. - Continue home meds - seems to be a dominant reason for his overall decline (5) Hyperlipidemia: - Continue home pravastatin (6) Dementia: Non-verbal at baseline. - Continue home meds (7) DVT prophylaxis: Lovenox 40 mg QAM daily (8) Discharge planning issues: for SNF once available - most likely 12/22 - case management working on this. personally updated 12/21, no new issues have arisen since Admission and Anticipated Discharge Date Admission Date: December 13, 2019 Subjective Patient continues to be mainly non verbal. No complaints. Review of Systems Review of Systems: All systems reviewed & are unremarkable except as noted in HPI & below Physical Exam Physical Exam: Patient was lying in bed. HEENT: NAD Respi: Breathing un labored, lungs appear clear, no use of accesory muscles.. Heart: RRR, Normal: S1, S2. Skin: no rashes no pallor or icterus Results & Data Results & [facility] ([facility]) Vital Signs (Past 12 Hours) Vital Signs Temp Pulse Pulse Resp BP BP Pulse Ox 12/22/19 15:43 36.8 C 66 16 111/72 96 12/22/19 14:46 66 12/22/19 11:39 36.9 C 70 18 93/57 L 92 PG Care Time/CCT Total # of Minutes Spent Total Time Spent with Patient: Total time spent is greater than 50% in coordination of care (as documented) at patient's floor/unit and/or counseling patient: Coding Level of Care Code 97987 Subseq Hosp Care Lvl 1 Diagnoses Syncope R55 Syncope type: unspecified Elevated white blood cell count, unspecified D72.829 Prostate cancer C61 Parkinson's disease G20 Hyperlipidemia E78.5 Dementia F03.90 DVT prophylaxis Z29.9 Discharge planning issues Z02.9 (1) Syncope Syncope type: unspecified Qualified Code(s): R55 - Syncope and collapse
[2019-12-23] MEDS: CARBIDOPA/LEVODOPA 25/100MG TAB PO SCH ×3 (07:35→17:04)
[2019-12-23] MEDS: PRAMIPEXOLE DIHYDROCHLO 0.5 MG TAB PO SCH (07:36)
[2019-12-23] MEDS: CHOLECALCIFEROL 1,000 UNITS 25 MCG TAB PO SCH (07:36)
[2019-12-23] MEDS: ENOXAPARIN INJ 40 MG/0.4 ML SYR SQ SCH (07:37)
[2019-12-23] MEDS: CYANOCOBALAMIN 500 MCG TABLET (VITAMIN B-12) PO SCH (07:37)
[2019-12-23] MEDS: BICALUTAMIDE 50 MG TAB PO SCH (07:38)
[2019-12-23] MEDS: PSYLLIUM 58.6% POWDER PACKET PO SCH (07:38)
[2019-12-23] MEDS: PRAVASTATIN SOD 40 MG TAB PO SCH (21:18)
[2019-12-23] MEDS: ASPIRIN 81 MG ECTAB PO SCH (21:18)
[2019-12-23] MEDS: DONEPEZIL HCL 5 MG TAB PO SCH (21:18)
--- NOTE | 2019-12-23 23:11 | Hospitalist Progress Note ---
Date of Service December 23, 2019 Assessment & Plan (1) Syncope: Likely orthostatic hypotension vs. possible bradycardia-induced hypotension. Facility reports HR in the 30s at time of event, however was in the 60s with EMS monitoring. PRP, trop WNL. TSH, B12, folate, & B1 checked with last admission and WNL - Could consider event monitor, though unclear if patient really would be able to get a pacemaker given his dementia - overall HR has appeared quite stable, would not intervene further unless new issues arise. -No change in plan. -awaiting placement. -Discharge likely for next week. Updated family. spoke with case management. (2) Elevated white blood cell count, unspecified: Possibly due to aspiration noted with emesis in ED. - Blood cultures from 12/12 are negative as of 12/14. - was on augmentin, appears to be doing well - treated for 5 days and stopped 12/17 - MANAGER ENTRY evaluated -> Put on finger food diet. (3) Prostate cancer: Follows with urology, s/p GnRH agonists, radiation therapy and XRT in 2009. Per report, he had lung involvement; however, PET CT chest from 05/2019 showed no active lung disease. - Continue bicalutamide daily as prescribed. Also receives Eligard injections [id number]. (4) Parkinson's disease: Initially diagnosed in 2009. Last seen in the hospital by Dr. Baca on 12/07/2019. - Continue home meds - seems to be a dominant reason for his overall decline (5) Hyperlipidemia: - Continue home pravastatin (6) Dementia: Non-verbal at baseline. - Continue home meds (7) DVT prophylaxis: Lovenox 40 mg QAM daily (8) Discharge planning issues: for SNF once available - most likely 12/22 - case management working on this. personally updated 12/21, no new issues have arisen since Admission and Anticipated Discharge Date Admission Date: December 13, 2019 Subjective 79 yo male does not verbalize any new complaints. Review of Systems Review of Systems: Unobtainable due to mental health condition Physical Exam Physical Exam: Patient was lying in bed. HEENT: NAD Respi: Breathing un labored, lungs appear clear, no use of accesory muscles.. Heart: RRR, Normal: S1, S2. Skin: no rashes no pallor or icterus Results & Data Results & Data ([facility]) Vital Signs (Past 12 Hours) Vital Signs Temp Pulse Pulse Resp BP BP Pulse Ox 12/23/19 19:22 36.7 C 76 18 100/60 94 12/23/19 15:01 36.4 C L 77 18 113/60 96 12/23/19 14:26 77 12/23/19 11:37 36.5 C 66 20 115/67 94 PG Care Time/CCT Total # of Minutes Spent Total Time Spent with Patient: Total time spent is greater than 50% in coordination of care (as documented) at patient's floor/unit and/or counseling patient: Coding Level of Care Code 35185 Subseq Hosp Care Lvl 1 Diagnoses Syncope R55 Syncope type: unspecified Elevated white blood cell count, unspecified D72.829 Prostate cancer C61 Parkinson's disease G20 Hyperlipidemia E78.5 Dementia F03.90 DVT prophylaxis Z29.9 Discharge planning issues Z02.9 (1) Syncope Syncope type: unspecified Qualified Code(s): R55 - Syncope and collapse
[2019-12-24] MEDS: CYANOCOBALAMIN 500 MCG TABLET (VITAMIN B-12) PO SCH (09:16)
[2019-12-24] MEDS: CARBIDOPA/LEVODOPA 25/100MG TAB PO SCH ×3 (09:16→17:37)
[2019-12-24] MEDS: PRAMIPEXOLE DIHYDROCHLO 0.5 MG TAB PO SCH (09:17)
[2019-12-24] MEDS: BICALUTAMIDE 50 MG TAB PO SCH (09:17)
[2019-12-24] MEDS: CHOLECALCIFEROL 1,000 UNITS 25 MCG TAB PO SCH (09:17)
[2019-12-24] MEDS: ENOXAPARIN INJ 40 MG/0.4 ML SYR SQ SCH (09:17)
[2019-12-24] MEDS: PSYLLIUM 58.6% POWDER PACKET PO SCH (09:17)
[2019-12-24] MEDS: PRAVASTATIN SOD 40 MG TAB PO SCH (21:15)
[2019-12-24] MEDS: ASPIRIN 81 MG ECTAB PO SCH (21:16)
[2019-12-24] MEDS: DONEPEZIL HCL 5 MG TAB PO SCH (21:16)
--- NOTE | 2019-12-24 22:41 | Hospitalist Progress Note ---
Date of Service December 24, 2019 Assessment & Plan (1) Syncope: Likely orthostatic hypotension vs. possible bradycardia-induced hypotension. Facility reports HR in the 30s at time of event, however was in the 60s with EMS monitoring. PRP, trop WNL. TSH, B12, folate, & B1 checked with last admission and WNL - Could consider event monitor, though unclear if patient really would be able to get a pacemaker given his dementia - overall HR has appeared quite stable, would not intervene further unless new issues arise. -No change in plan. -awaiting placement. -Discharge likely for next week. Updated family. spoke with case management. (2) Elevated white blood cell count, unspecified: Possibly due to aspiration noted with emesis in ED. - Blood cultures from 12/12 are negative as of 12/14. - was on augmentin, appears to be doing well - treated for 5 days and stopped 12/17 - FABRICATOR ARTIFICIAL BREAST evaluated -> Put on finger food diet. (3) Prostate cancer: Follows with urology, s/p GnRH agonists, radiation therapy and XRT in 2009. Per report, he had lung involvement; however, PET CT chest from 05/2019 showed no active lung disease. - Continue bicalutamide daily as prescribed. Also receives Eligard injections [id number]. (4) Parkinson's disease: Initially diagnosed in 2009. Last seen in the hospital by Dr. Baca on 12/07/2019. - Continue home meds - seems to be a dominant reason for his overall decline (5) Hyperlipidemia: - Continue home pravastatin (6) Dementia: Non-verbal at baseline. - Continue home meds (7) DVT prophylaxis: Lovenox 40 mg QAM daily (8) Discharge planning issues: for SNF once available - most likely 12/22 - case management working on this. personally updated 12/21, no new issues have arisen since Admission and Anticipated Discharge Date Admission Date: December 13, 2019 Subjective 79 yo male does not provide significant history. Review of Systems Review of Systems: All systems reviewed & are unremarkable except as noted in HPI & below Physical Exam Physical Exam: Patient was lying in bed. HEENT: NAD Respi: Breathing un labored, lungs appear clear, no use of accesory muscles.. Heart: RRR, Normal: S1, S2. Skin: no rashes no pallor or icterus Results & Data Results & Data ([facility]) Vital Signs (Past 12 Hours) Vital Signs Temp Pulse Pulse Resp BP BP Pulse Ox 12/24/19 22:26 36.6 C 62 16 126/70 95 12/24/19 19:28 36.5 C 82 17 130/69 98 12/24/19 17:06 60 12/24/19 14:57 36.8 C 80 20 117/58 L 95 PG Care Time/CCT Total # of Minutes Spent Total Time Spent with Patient: Total time spent is greater than 50% in coordination of care (as documented) at patient's floor/unit and/or counseling patient: Coding Level of Care Code 31152 Subseq Hosp Care Lvl 1 Diagnoses Syncope R55 Syncope type: unspecified Elevated white blood cell count, unspecified D72.829 Prostate cancer C61 Parkinson's disease G20 Hyperlipidemia E78.5 Dementia F03.90 DVT prophylaxis Z29.9 Discharge planning issues Z02.9 (1) Syncope Syncope type: unspecified Qualified Code(s): R55 - Syncope and collapse
[2019-12-25 05:45] LABS: Creatinine Clr Calc Pharmacy 63.4 ml/min; Est GFR (Non-African American) 82.9
[2019-12-25] MEDS: PRAMIPEXOLE DIHYDROCHLO 0.5 MG TAB PO SCH (08:32)
[2019-12-25] MEDS: CHOLECALCIFEROL 1,000 UNITS 25 MCG TAB PO SCH (08:32)
[2019-12-25] MEDS: CARBIDOPA/LEVODOPA 25/100MG TAB PO SCH ×3 (08:32→17:37)
[2019-12-25] MEDS: CYANOCOBALAMIN 500 MCG TABLET (VITAMIN B-12) PO SCH (08:32)
[2019-12-25] MEDS: PSYLLIUM 58.6% POWDER PACKET PO SCH (08:33)
[2019-12-25] MEDS: BICALUTAMIDE 50 MG TAB PO SCH (08:33)
[2019-12-25] MEDS: ENOXAPARIN INJ 40 MG/0.4 ML SYR SQ SCH (08:33)
--- NOTE | 2019-12-25 11:20 | Hospitalist Progress Note ---
Date of Service December 25, 2019 Assessment & Plan (1) Syncope: Likely orthostatic hypotension vs. possible bradycardia-induced hypotension. Facility reports HR in the 30s at time of event, however was in the 60s with EMS monitoring. PRP, trop WNL. TSH, B12, folate, & B1 checked with last admission and WNL - Could consider event monitor, though unclear if patient really would be able to get a pacemaker given his dementia - overall HR has appeared quite stable, would not intervene further unless new issues arise. -No change in plan. -awaiting placement. -Discharge likely either 12/25 or 12/26 Updated . (2) Elevated white blood cell count, unspecified: Possibly due to aspiration noted with emesis in ED. - Blood cultures from 12/12 are negative as of 12/14. - was on augmentin, appears to be doing well - treated for 5 days and stopped 12/17 - FLIGHT MECHANIC evaluated -> Put on finger food diet. (3) Prostate cancer: Follows with urology, s/p GnRH agonists, radiation therapy and XRT in 2009. Per report, he had lung involvement; however, PET CT chest from 05/2019 showed no active lung disease. - Continue bicalutamide daily as prescribed. Also receives Eligard injections [id number]. (4) Parkinson's disease: Initially diagnosed in 2009. Last seen in the hospital by Dr. Baca on 12/07/2019. - Continue home meds - seems to be a dominant reason for his overall decline (5) Hyperlipidemia: - Continue home pravastatin (6) Dementia: Non-verbal at baseline. - Continue home meds (7) DVT prophylaxis: Lovenox 40 mg QAM daily (8) Discharge planning issues: for SNF once available - most likely 12/25 - case management working on this. personally updated 12/24, no new issues have arisen since. had questions but she couldn't remember those questions as she was not home and her notepad (with the questions she had listed) was home. Will need to call tomorrow. Admission and Anticipated Discharge Date Admission Date: December 13, 2019 Subjective Patient reports no new symptoms. Patient was comfortable and sitting in his chair. Review of Systems Review of Systems: All systems reviewed & are unremarkable except as noted in HPI & below Physical Exam Physical Exam: Patient was lying in bed. HEENT: NAD Respi: Breathing un labored, lungs appear clear, no use of accesory muscles.. Heart: RRR, Normal: S1, S2. Skin: no rashes no pallor or icterus Results & Data Results & Data ([facility]) Vital Signs (Past 12 Hours) Vital Signs Temp Pulse Pulse Resp BP BP Pulse Ox 12/25/19 11:11 36.5 C 73 18 109/63 93 12/25/19 07:24 59 L 12/25/19 07:20 36.7 C 66 18 110/61 91 12/25/19 03:25 36.6 C 61 20 143/71 H 98 PG Care Time/CCT Total # of Minutes Spent Total Time Spent with Patient: Total time spent is greater than 50% in coordination of care (as documented) at patient's floor/unit and/or counseling patient: Coding Level of Care Code 93369 Subseq Hosp Care Lvl 1 Diagnoses Syncope R55 Syncope type: unspecified Elevated white blood cell count, unspecified D72.829 Prostate cancer C61 Parkinson's disease G20 Hyperlipidemia E78.5 Dementia F03.90 DVT prophylaxis Z29.9 Discharge planning issues Z02.9 (1) Syncope Syncope type: unspecified Qualified Code(s): R55 - Syncope and collapse
[2019-12-25] MEDS: ASPIRIN 81 MG ECTAB PO SCH (21:10)
[2019-12-25] MEDS: PRAVASTATIN SOD 40 MG TAB PO SCH (21:10)
[2019-12-25] MEDS: DONEPEZIL HCL 5 MG TAB PO SCH (21:10)
[2019-12-26] MEDS: CARBIDOPA/LEVODOPA 25/100MG TAB PO SCH ×3 (07:33→16:05)
[2019-12-26] MEDS: BICALUTAMIDE 50 MG TAB PO SCH (07:34)
[2019-12-26] MEDS: ENOXAPARIN INJ 40 MG/0.4 ML SYR SQ SCH (07:34)
[2019-12-26] MEDS: PRAMIPEXOLE DIHYDROCHLO 0.5 MG TAB PO SCH (07:34)
[2019-12-26] MEDS: CYANOCOBALAMIN 500 MCG TABLET (VITAMIN B-12) PO SCH (07:34)
[2019-12-26] MEDS: PSYLLIUM 58.6% POWDER PACKET PO SCH (07:34)
[2019-12-26] MEDS: CHOLECALCIFEROL 1,000 UNITS 25 MCG TAB PO SCH (07:35)
--- NOTE | 2019-12-26 13:24 | Hospitalist Progress Note ---
Date of Service December 26, 2019 Assessment & Plan (1) Syncope: Likely orthostatic hypotension vs. possible bradycardia-induced hypotension. Facility reports HR in the 30s at time of event, however was in the 60s with EMS monitoring. PRP, trop WNL. TSH, B12, folate, & B1 checked with last admission and WNL - Could consider event monitor, though unclear if patient really would be able to get a pacemaker given his dementia - overall HR has appeared quite stable, would not intervene further unless new issues arise. -No change in plan. -awaiting placement. -Discharge likely either 12/25 or 12/26 Updated extensively today, updated to the best of my ability and to her satisfaction. (2) Elevated white blood cell count, unspecified: Possibly due to aspiration noted with emesis in ED. - Blood cultures from 12/12 are negative as of 12/14. - was on augmentin, appears to be doing well - treated for 5 days and stopped 4/ - PROJECTION TECHNICIAN evaluated -> Put on finger food diet. (3) Prostate cancer: Follows with urology, s/p GnRH agonists, radiation therapy and XRT in 2009. Per report, he had lung involvement; however, PET CT chest from 05/2019 showed no active lung disease. - Continue bicalutamide daily as prescribed. Also receives Eligard injections [id number]. (4) Parkinson's disease: Initially diagnosed in 2009. Last seen in the hospital by Dr. Baca on 12/07/2019. - Continue home meds - seems to be a dominant reason for his overall decline (5) Hyperlipidemia: - Continue home pravastatin (6) Dementia: Non-verbal at baseline. - Continue home meds (7) DVT prophylaxis: Lovenox 40 mg QAM daily (8) Discharge planning issues: for SNF once available - case management still working on placement. Admission and Anticipated Discharge Date Admission Date: December 13, 2019 Subjective no meaningful HPI or ROS updated and answered all questions to the best of my ability Review of Systems Review of Systems: Unobtainable due to cognitive status Physical Exam Physical Exam: gen awake and alert sitting in bed no distress eating breakfast. breathing unlabored no accessory muscles good effort skin no rashes no pallor or icterus Results & Data Results & Data ([facility]) Vital Signs (Past 12 Hours) Vital Signs Temp Pulse Resp BP Pulse Ox 12/26/19 07:13 97.0 F L 83 18 117/53 L 95 PG Care Time/CCT Total # of Minutes Spent Total Time Spent with Patient: Total time spent is greater than 50% in coordination of care (as documented) at patient's floor/unit and/or counseling patient: Coding Level of Care Code 61368 Subseq Hosp Care Lvl 1 Diagnoses Syncope R55 Syncope type: unspecified Elevated white blood cell count, unspecified D72.829 Prostate cancer C61 Parkinson's disease G20 Hyperlipidemia E78.5 Dementia F03.90 DVT prophylaxis Z29.9 Discharge planning issues Z02.9 (1) Syncope Syncope type: unspecified Qualified Code(s): R55 - Syncope and collapse
[2019-12-26] MEDS: ASPIRIN 81 MG ECTAB PO SCH (19:46)
[2019-12-26] MEDS: DONEPEZIL HCL 5 MG TAB PO SCH (19:46)
[2019-12-26] MEDS: PRAVASTATIN SOD 40 MG TAB PO SCH (19:46)
[2019-12-27] MEDS: BICALUTAMIDE 50 MG TAB PO SCH (08:18)
[2019-12-27] MEDS: CARBIDOPA/LEVODOPA 25/100MG TAB PO SCH ×3 (08:18→16:56)
[2019-12-27] MEDS: CYANOCOBALAMIN 500 MCG TABLET (VITAMIN B-12) PO SCH (08:19)
[2019-12-27] MEDS: CHOLECALCIFEROL 1,000 UNITS 25 MCG TAB PO SCH (08:19)
[2019-12-27] MEDS: ENOXAPARIN INJ 40 MG/0.4 ML SYR SQ SCH (08:19)
[2019-12-27] MEDS: PRAMIPEXOLE DIHYDROCHLO 0.5 MG TAB PO SCH (08:19)
[2019-12-27] MEDS: PSYLLIUM 58.6% POWDER PACKET PO SCH (08:19)
--- NOTE | 2019-12-27 16:50 | Hospitalist Progress Note ---
Date of Service December 27, 2019 Assessment & Plan (1) Syncope: Likely orthostatic hypotension vs. possible bradycardia-induced hypotension. Facility reports HR in the 30s at time of event, however was in the 60s with EMS monitoring. PRP, trop WNL. TSH, B12, folate, & B1 checked with last admission and WNL - Could consider event monitor, though unclear if patient really would be able to get a pacemaker given his dementia - overall HR has appeared quite stable, would not intervene further unless new issues arise. -No change in plan. -awaiting placement. -hopefully 12/27 Updated extensively 12/26, updated to the best of my ability and to her satisfaction. (2) Elevated white blood cell count, unspecified: Possibly due to aspiration noted with emesis in ED. - Blood cultures from 12/12 are negative as of 12/14. - was on augmentin, appears to be doing well - treated for 5 days and stopped 12/17 and has had no respiratory sx since - PROPOSAL WRITER evaluated -> Put on finger food diet. (3) Prostate cancer: Follows with urology, s/p GnRH agonists, radiation therapy and XRT in 2009. Per report, he had lung involvement; however, PET CT chest from 05/2019 showed no active lung disease. - Continue bicalutamide daily as prescribed. Also receives Eligard injections [id number]. (4) Parkinson's disease: Initially diagnosed in 2009. Last seen in the hospital by Dr. Baca on 12/07/2019. - Continue home meds - seems to be a dominant reason for his overall decline (5) Hyperlipidemia: - Continue home pravastatin (6) Dementia: Non-verbal at baseline. - Continue home meds (7) DVT prophylaxis: Lovenox 40 mg QAM daily (8) Discharge planning issues: for SNF once available - case management still working on placement. hopefully 12/27 Admission and Anticipated Discharge Date Admission Date: December 13, 2019 Subjective no meaningful HPI or ROS Review of Systems Review of Systems: All systems reviewed & are unremarkable except as noted in HPI & below Physical Exam Physical Exam: sitting in bed, makes eye contact while fidgeting with remote, no distress. heent nc at mmm breathing unlabored no accessory muscles good effort skin no rashes no pallor or icterus neuro no focal deficits Results & Data Results & Data ([facility]) Vital Signs (Past 12 Hours) Vital Signs Temp Pulse Resp BP BP Pulse Ox 12/27/19 15:07 98.8 F 71 16 103/65 95 12/27/19 07:00 97.0 F L 75 18 115/61 90 PG Care Time/CCT Total # of Minutes Spent Total Time Spent with Patient: Total time spent is greater than 50% in coordination of care (as documented) at patient's floor/unit and/or counseling patient: Coding Level of Care Code 97713 Subseq Hosp Care Lvl 1 Diagnoses Syncope R55 Syncope type: unspecified Elevated white blood cell count, unspecified D72.829 Prostate cancer C61 Parkinson's disease G20 Hyperlipidemia E78.5 Dementia F03.90 DVT prophylaxis Z29.9 Discharge planning issues Z02.9 (1) Syncope Syncope type: unspecified Qualified Code(s): R55 - Syncope and collapse
[2019-12-27] MEDS: DONEPEZIL HCL 5 MG TAB PO SCH (20:41)
[2019-12-27] MEDS: ASPIRIN 81 MG ECTAB PO SCH (20:41)
[2019-12-27] MEDS: PRAVASTATIN SOD 40 MG TAB PO SCH (20:41)
[2019-12-28 06:48] LABS: Creatinine Clr Calc Pharmacy 68.1 ml/min; Est GFR (African American) 98.9; Est GFR (Non-African American) 85.3
[2019-12-28] MEDS: CARBIDOPA/LEVODOPA 25/100MG TAB PO SCH ×3 (07:54→16:58)
[2019-12-28] MEDS: BICALUTAMIDE 50 MG TAB PO SCH (07:55)
[2019-12-28] MEDS: ENOXAPARIN INJ 40 MG/0.4 ML SYR SQ SCH (07:55)
[2019-12-28] MEDS: CHOLECALCIFEROL 1,000 UNITS 25 MCG TAB PO SCH (07:56)
[2019-12-28] MEDS: CYANOCOBALAMIN 500 MCG TABLET (VITAMIN B-12) PO SCH (07:56)
[2019-12-28] MEDS: PRAMIPEXOLE DIHYDROCHLO 0.5 MG TAB PO SCH (07:56)
[2019-12-28] MEDS: PSYLLIUM 58.6% POWDER PACKET PO SCH (07:56)
--- NOTE | 2019-12-28 14:50 | Hospitalist Progress Note ---
Date of Service December 28, 2019 Assessment & Plan (1) Syncope: Likely orthostatic hypotension vs. possible bradycardia-induced hypotension. Facility reports HR in the 30s at time of event, however was in the 60s with EMS monitoring. PRP, trop WNL. TSH, B12, folate, & B1 checked with last admission and WNL - Could consider event monitor, though unclear if patient really would be able to get a pacemaker given his dementia - overall HR has appeared quite stable, would not intervene further unless new issues arise. -No change in plan. -awaiting placement. -hopefully tomorrow, no beds today (2) Elevated white blood cell count, unspecified: Possibly due to aspiration noted with emesis in ED. - Blood cultures from 12/12 are negative as of 12/14. - was on augmentin, appears to be doing well - treated for 5 days and stopped 12/17 and has had no respiratory sx since - LITHOGRAPHIC RETOUCHER APPRENTICE evaluated -> Put on finger food diet, continue on discharge (3) Prostate cancer: Follows with urology, s/p GnRH agonists, radiation therapy and XRT in 2009. Per report, he had lung involvement; however, PET CT chest from 05/2019 showed no active lung disease. - Continue bicalutamide daily as prescribed. Also receives Eligard injections [id number]. (4) Parkinson's disease: Initially diagnosed in 2009. Last seen in the hospital by Dr. Baca on 12/07/2019. - Continue home meds - seems to be a dominant reason for his overall decline (5) Hyperlipidemia: - Continue home pravastatin (6) Dementia: Non-verbal at baseline. - Continue home meds (7) DVT prophylaxis: Lovenox 40 mg QAM daily (8) Discharge planning issues: for SNF once available - case management still working on placement. hopefully 12/27 Admission and Anticipated Discharge Date Admission Date: December 13, 2019 Subjective patient laying in bed, no meaningful responses to my questions vitals stable, no fever Cr stable on lab work reviewed chart d/w CM, cannot go to [facility] today Review of Systems Review of Systems: Unobtainable due to cognitive status Physical Exam Constitutional: WD/WN, vitals as above Eyes: PERRL, conjunctivae normal, anicteric sclerae ENMT: external ear and nose normal, oropharynx normal Neck: trachea midline, no thyromegaly Respiratory: normal respiratory effort, lungs clear to auscultation Cardiovascular: RRR, no murmur, no edema Gastrointestinal (Abdomen): normal bowel sounds, soft, nontender, no hepatosplenomegaly Musculoskeletal: no cyanosis or clubbing, extremities motor strength 5/5 Skin: no rashes, warm and dry Neurologic: patellar DTR's 2+ bilat, sensation intact and PERRL, EOMI, accommodation nl, no face palsy, no dysarthria Psychiatric: Orientation: alert; + not oriented to person, + not oriented to place and + not oriented to time Lymphatic: no cervical or axillary lymphadenopathy Results & Data Results & Data ([facility]) Vital Signs (Past 12 Hours) Vital Signs Temp Pulse Resp BP BP Pulse Ox 12/28/19 10:17 36.7 C 72 20 134/73 123/68 96 12/28/19 07:31 36.7 C 72 20 123/68 96 Laboratory Results Laboratory Results - last 24 hr 12/28/19 06:05 Creatinine 0.82 Est Cr Clr Drug Dosing 68.1 Est GFR ( Amer) 98.9 Est GFR (Non-Af Amer) 85.3 Medications Administered Current Inpatient Medications Acetaminophen (Tylenol) 500 mg PO TID PRN PRN Reason: fever Stop: 01/12/20 15:16 Aspirin (Ecotrin Ectab) 81 mg PO [facility] Stop: 01/12/20 20:59 Last Admin: 12/27/19 20:41 Dose: 81 mg Documented by: [facility]ut[facility] ([facility]odex) [facility] Stop: 01/13/20 08:59 Last Admin: 12/28/19 07:55 Dose: 50 mg Documented by: Carbidopa/Levodopa (Sinemet 25/100 Mg) 1.5 tab PO [facility] Stop: 01/12/20 16:59 Last Admin: 12/28/19 12:33 Dose: 1.5 tab Documented by: Cyanocobalamin (Vitamin B-12) 1,000 mcg PO [facility] Stop: 01/13/20 08:59 Last Admin: 12/28/19 07:56 Dose: 1,000 mcg Documented by: Donepezil HCl (Aricept) 5 mg PO [facility] Stop: 01/12/20 20:59 Last Admin: 12/27/19 20:41 Dose: 5 mg Documented by: Enoxaparin Sodium (Lovenox) 40 [facility] SQ [facility] Stop: 01/13/20 08:59 Last Admin: 12/28/19 07:55 Dose: 40 mg Documented by: Magnesium Hydroxide (Milk Of Magnesia) 30 ml PO Q12H PRN PRN Reason: Constipation Stop: 01/12/20 15:16 Ondansetron HCl (Zofran) 4 mg IV Q6H PRN PRN Reason: Nausea Stop: 01/12/20 15:16 Pramipexole Dihydrochloride (Mirapex) 1.5 mg [facility] Stop: 01/13/20 08:59 Last Admin: 12/28/19 07:56 Dose: 1.5 mg Documented by: Pravastatin Sodium (Pravachol) 40 mg PO [facility] Stop: 01/12/20 20:59 Last Admin: 12/27/19 20:41 Dose: 40 mg Documented by: Psyllium Hydrophilic Mucilloid (Metamucil) [address] [facility] Stop: 01/13/20 08:59 Last Admin: 12/28/19 07:56 Dose: 1 pkt Documented by: Vitamin D (Vitamin D3) 1,000 units [facility] Stop: 01/13/20 08:59 Last Admin: 12/28/19 07:56 Dose: 1,000 units Documented by: PG Care Time/CCT Total # of Minutes Spent Total Time Spent with Patient: Total time spent is greater than 50% in coordination of care (as documented) at patient's floor/unit and/or counseling patient: Coding Level of Care Code 68675 Subseq Hosp Care Lvl 2 Diagnoses Syncope R55 Syncope type: unspecified Elevated white blood cell count, unspecified D72.829 Prostate cancer C61 Parkinson's disease G20 Hyperlipidemia E78.5 Dementia F03.90 DVT prophylaxis Z29.9 Discharge planning issues Z02.9 (1) Syncope Syncope type: unspecified Qualified Code(s): R55 - Syncope and collapse
[2019-12-28] MEDS: DONEPEZIL HCL 5 MG TAB PO SCH (20:25)
[2019-12-28] MEDS: ASPIRIN 81 MG ECTAB PO SCH (20:25)
[2019-12-28] MEDS: PRAVASTATIN SOD 40 MG TAB PO SCH (20:25)
[2019-12-29] MEDS: CARBIDOPA/LEVODOPA 25/100MG TAB PO SCH ×3 (08:26→16:58)
[2019-12-29] MEDS: ENOXAPARIN INJ 40 MG/0.4 ML SYR SQ SCH (08:26)
[2019-12-29] MEDS: PRAMIPEXOLE DIHYDROCHLO 0.5 MG TAB PO SCH (08:27)
[2019-12-29] MEDS: CYANOCOBALAMIN 500 MCG TABLET (VITAMIN B-12) PO SCH (08:27)
[2019-12-29] MEDS: PSYLLIUM 58.6% POWDER PACKET PO SCH (08:27)
[2019-12-29] MEDS: BICALUTAMIDE 50 MG TAB PO SCH (08:27)
[2019-12-29] MEDS: CHOLECALCIFEROL 1,000 UNITS 25 MCG TAB PO SCH (08:27)
--- NOTE | 2019-12-29 14:12 | Hospitalist Progress Note ---
Date of Service December 29, 2019 Assessment & Plan (1) Syncope: Likely orthostatic hypotension vs. possible bradycardia-induced hypotension. Facility reports HR in the 30s at time of event, however was in the 60s with EMS monitoring. PRP, trop WNL. TSH, B12, folate, & B1 checked with last admission and WNL - Could consider event monitor, though unclear if patient really would be able to get a pacemaker given his dementia - overall HR has appeared quite stable, would not intervene further unless new issues arise -No change in plan. -awaiting placement. planning for returning to [place] on Hospice (2) Elevated white blood cell count, unspecified: Possibly due to aspiration noted with emesis in ED. - Blood cultures from 12/12 are negative as of 12/14. - was on augmentin, appears to be doing well - treated for 5 days and stopped /5 and has had no respiratory sx since - BANKING PARALEGAL evaluated -> Put on finger food diet, continue on discharge (3) Prostate cancer: Follows with urology, s/p GnRH agonists, radiation therapy and XRT in 2009. Per report, he had lung involvement; however, PET CT chest from 05/2019 showed no active lung disease. - Continue bicalutamide daily as prescribed. Also receives Eligard injections [id number]. (4) Parkinson's disease: Initially diagnosed in 2009. Last seen in the hospital by Dr. Baca on 12/07/2019. - Continue home meds - seems to be a dominant reason for his overall decline (5) Hyperlipidemia: - Continue home pravastatin (6) Dementia: Non-verbal at baseline having urinary and bowel incontinence dementia has advanced, would be appropriate for hospice will ask palliative care to reach out to to discuss further tentatively plan for discharge back to [place] tomorrow (7) DVT prophylaxis: Lovenox 40 mg QAM daily (8) Discharge planning issues: plan for [place] tomorrow Admission and Anticipated Discharge Date Admission Date: December 13, 2019 Subjective patient sitting in bed, pleasant, no verbal responses discussed with CM, working on alternative plan of going back to [place] on Hospice long discussion with patient's Nichole over the phone he went to [place] in June 2019 initially as some respite care for the but turned into permanent situation because the patient did well she said he would walk around the unit independently, would not really participate in activities but he seemed happy, cooperative we discussed that physically he has declined a great deal, not willing to participate in therapy according to palliative care, his quality of life has deteriorated, he would be appropriate for hospice at this point, going back to [place] on Hospice is the best option, will not find a SNF for him, he probably won't participate palliative care will reach out to to discuss further, appreciate their assistance Review of Systems Review of Systems: Unobtainable due to cognitive status (non verbal) Physical Exam Constitutional: WD/WN, vitals as above Eyes: PERRL, conjunctivae normal, anicteric sclerae ENMT: external ear and nose normal, oropharynx normal Neck: trachea midline, no thyromegaly Respiratory: normal respiratory effort, lungs clear to auscultation Cardiovascular: RRR, no murmur, no edema Gastrointestinal (Abdomen): normal bowel sounds, soft, nontender, no hepatosplenomegaly Musculoskeletal: no cyanosis or clubbing, extremities motor strength 5/5 Skin: no rashes, warm and dry Neurologic: patellar DTR's 2+ bilat, sensation intact and PERRL, EOMI, accommodation nl, no face palsy, no dysarthria Psychiatric: Orientation: alert; + not oriented to person, + not oriented to place and + not oriented to time Lymphatic: no cervical or axillary lymphadenopathy Results & Data Results & Data ([facility]) Vital Signs (Past 12 Hours) Vital Signs Temp Pulse Resp BP Pulse Ox 12/29/19 07:21 36.4 C L 69 18 121/68 99 Medications Administered Current Inpatient Medications Acetaminophen (Tylenol) 500 mg PO TID PRN PRN Reason: fever Stop: 01/12/20 15:16 Aspirin (Ecotrin Ectab) 81 mg PO HS [facility] Stop: 01/12/20 20:59 Last Admin: 12/28/19 20:25 Dose: 81 mg Documented by: Bicalutamide (Casodex) 50 mg PO QAM [facility] Stop: 01/13/20 08:59 Last Admin: 12/29/19 08:27 Dose: 50 mg Documented by: Carbidopa/Levodopa (Sinemet 25/100 Mg) 1.5 tab PO [facility] Stop: 01/12/20 16:59 Last Admin: 12/29/19 12:12 Dose: 1.5 tab Documented by: Cyanocobalamin (Vitamin B-12) 1,000 mcg PO [facility] Stop: 01/13/20 08:59 Last Admin: 12/29/19 08:27 Dose: 1,000 mcg Documented by: Donepezil HCl (Aricept) 5 mg PO [facility] Stop: 01/12/20 20:59 Last Admin: 12/28/19 20:25 Dose: 5 mg Documented by: Enoxaparin Sodium (Lovenox) 40 mg SQ [facility] Stop: 01/13/20 08:59 Last Admin: 12/29/19 08:26 Dose: 40 mg Documented by: Magnesium Hydroxide (Milk Of Magnesia) 30 ml PO Q12H PRN PRN Reason: Constipation Stop: 01/12/20 15:16 Ondansetron HCl (Zofran) 4 mg IV Q6H PRN PRN Reason: Nausea Stop: 01/12/20 15:16 Pramipexole Dihydrochloride (Mirapex) 1.5 mg PO [facility] Stop: 01/13/20 08:59 Last Admin: 12/29/19 08:27 Dose: 1.5 mg Documented by: Pravastatin Sodium (Pravachol) 40 mg PO [facility] Stop: 01/12/20 20:59 Last Admin: 12/28/19 20:25 Dose: 40 mg Documented by: Psyllium Hydrophilic Mucilloid (Metamucil) 1 pkt PO [facility] Stop: 01/13/20 08:59 Last Admin: 12/29/19 08:27 Dose: 1 pkt Documented by: Vitamin D (Vitamin D3) 1,000 units PO [facility] Stop: 01/13/20 08:59 Last Admin: 12/29/19 08:27 Dose: 1,000 units Documented by: PG Care Time/CCT Total # of Minutes Spent Total Time Spent: 38 Total Time Spent with Patient: Total time spent is greater than 50% in coordination of care (as documented) at patient's floor/unit and/or counseling patient: Coding Level of Care Code 93160 Subseq Hosp Care Lvl 3 Diagnoses Syncope R55 Syncope type: unspecified Elevated white blood cell count, unspecified D72.829 Prostate cancer C61 Parkinson's disease G20 Hyperlipidemia E78.5 Dementia F03.90 DVT prophylaxis Z29.9 Discharge planning issues Z02.9 (1) Syncope Syncope type: unspecified Qualified Code(s): R55 - Syncope and collapse
--- NOTE | 2019-12-29 16:06 | Palliative Care Progress Note ---
Date of Service December 29, 2019 Assessment & Plan (1) Goals of care, counseling/discussion: -Patient remains a total care. Unfortunately it seems as though he has not madr any significant physical recovery, however PT/OT havent seen patient their evaluation on 12/14. Patient has been hospitalized for 16 days waiting on an available SNF bed. [facility] then called today and stated they could accept patient back if he would return on hospice care. surgical manager and physician both discussed this with , but she is uncertain. -Called patient's and spoke with her at length. she does fully understand that the likelihood of her recovering to his previous baseline is unlikely. However, she is really not ready to put him on hospice care and not even attempt to do some sort of PT/OT. -I presented the options: go to [facility] on hospice (which means no PT/OT) or continue to wait at hospital until SNF bed is available for rehab. If she chooses to wait, i did make it known that that means more time in hospital, and he may get to the SNF and still not recover, but at that point she could transition him to hospice as well. -Felisa is still unsure. She plans to speak with Sammi at [facility] today or tomorrow. She is going to think about things further. Case management is to follow up with her tomorrow about decision. -FAST score currently 7c, which certainly qualifies patient for hospice. poor rehab potential. PPS 30%. (2) Aspiration pneumonia: (3) Syncope: (4) Parkinson's disease: Subjective patient remains pleasantly confused. nursing fed patient today. he has not been out of bed or worked with PT in weeks. Review of Systems Review of Systems: Unobtainable due to cognitive status Physical Exam Constitutional: no acute distress ENMT: external ear and nose normal, oropharynx normal Respiratory: normal respiratory effort, lungs clear to auscultation Cardiovascular: Rate/Rhythm: regular rate and regular rhythm Gastrointestinal (Abdomen): Percussion/Palpation: abdomen soft; abdomen nontender Neurologic: moves all extremities, awake and + confused Results & Data Vital Signs (Past 12 Hours) Vital Signs Temp Pulse Resp BP Pulse Ox 12/29/19 15:06 36.3 C L 66 18 108/52 L 96 12/29/19 07:21 36.4 C L 69 18 121/68 99 PG Care Time/CCT Total # of Minutes Spent Total Time Spent with Patient: : Coding Level of Care Code 45358 Subseq Hosp Care Lvl 3 Diagnoses Goals of care, counseling/discussion Z71.89 Aspiration pneumonia J69.0 Syncope R55 Parkinson's disease G20 Time Spent Midlevel 45 minutes with >50% of the time spent at bedside with patient and on phone with famil discussing condition and GOC.
[2019-12-29] MEDS: PRAVASTATIN SOD 40 MG TAB PO SCH (20:44)
[2019-12-29] MEDS: ASPIRIN 81 MG ECTAB PO SCH (20:44)
[2019-12-29] MEDS: DONEPEZIL HCL 5 MG TAB PO SCH (20:44)
[2019-12-30] MEDS: CARBIDOPA/LEVODOPA 25/100MG TAB PO SCH ×3 (07:48→16:58)
[2019-12-30] MEDS: PSYLLIUM 58.6% POWDER PACKET PO SCH (07:49)
[2019-12-30] MEDS: CYANOCOBALAMIN 500 MCG TABLET (VITAMIN B-12) PO SCH (07:49)
[2019-12-30] MEDS: ENOXAPARIN INJ 40 MG/0.4 ML SYR SQ SCH (07:49)
[2019-12-30] MEDS: PRAMIPEXOLE DIHYDROCHLO 0.5 MG TAB PO SCH (07:49)
[2019-12-30] MEDS: BICALUTAMIDE 50 MG TAB PO SCH (07:49)
[2019-12-30] MEDS: CHOLECALCIFEROL 1,000 UNITS 25 MCG TAB PO SCH (07:49)
--- NOTE | 2019-12-30 14:55 | Hospitalist Progress Note ---
Date of Service December 30, 2019 Assessment & Plan (1) Syncope: Likely orthostatic hypotension vs. possible bradycardia-induced hypotension. Facility reports HR in the 30s at time of event, however was in the 60s with EMS monitoring. PRP, trop WNL. TSH, B12, folate, & B1 checked with last admission and WNL. - plan for discharge to [place] on hospice on Thursday (2) Goals of care, counseling/discussion: Given goal of hospice will discontinue statin (3) Elevated white blood cell count, unspecified: Possibly due to aspiration noted with emesis in ED. - Blood cultures from 12/12 are negative as of 12/14. - was on augmentin, appears to be doing well - treated for 5 days and stopped /5 and has had no respiratory sx since - ENERGY RISK MANAGEMENT ANALYST evaluated -> Put on finger food diet, continue on discharge (4) Prostate cancer: Follows with urology, s/p GnRH agonists, radiation therapy and XRT in 2009. Per report, he had lung involvement; however, PET CT chest from 05/2019 showed no active lung disease. - Continue bicalutamide daily as prescribed. Also receives Eligard injections [id number]. (5) Parkinson's disease: Initially diagnosed in 2009. Last seen in the hospital by Dr. Baca on 12/07/2019. - Continue home meds - seems to be a dominant reason for his overall decline (6) Dementia: Non-verbal at baseline having urinary and bowel incontinence (7) DVT prophylaxis: Lovenox 40 mg QAM daily Admission and Anticipated Discharge Date Admission Date: December 13, 2019 Anticipated date of discharge: 01/03/20 Subjective Unable to get history from patient. Discussed care with RN. Eating and drinking ok with assistance. Review of Systems Review of Systems: Unobtainable due to cognitive status Physical Exam Constitutional: + frail appearing; not lethargic Respiratory: normal respiratory effort; no respiratory distress Neurologic: awake Speech / Cognition: + abnormal speech (nonverbal) Psychiatric: Orientation: alert; + not oriented to person, + not oriented to place and + not oriented to time Results & Data Results & Data ([facility]) Vital Signs (Past 12 Hours) Vital Signs Pulse Resp BP Pulse Ox 12/30/19 07:39 73 18 109/58 L 99 PG Care Time/CCT Total # of Minutes Spent Total Time Spent with Patient: Total time spent is greater than 50% in coordination of care (as documented) at patient's floor/unit and/or counseling patient: Coding Level of Care Code 06462 Subseq Hosp Care Lvl 1 Diagnoses Syncope R55 Syncope type: unspecified Goals of care, counseling/discussion Z71.89 Elevated white blood cell count, unspecified D72.829 Prostate cancer C61 Parkinson's disease G20 Dementia F03.90 DVT prophylaxis Z29.9 (1) Syncope Syncope type: unspecified Qualified Code(s): R55 - Syncope and collapse
[2019-12-30] MEDS: DONEPEZIL HCL 5 MG TAB PO SCH (21:45)
[2019-12-30] MEDS: ASPIRIN 81 MG ECTAB PO SCH (21:45)
[2019-12-31 07:32] LABS: Hematocrit (blood only) 36.6 % (42-52); Hemoglobin 12.2 g/dL (14.0-18.0); Mean Corpuscular Hemoglobin 31.4 pg (25-34); Mean Corpuscular Hgb Conc 33.3 g/dL (32-36); Mean Corpuscular Volume 94.1 fL (80-100); Mean Platelet Volume 9.1 fL (7.4-10.4); Platelet Count 378 K/uL (130-400); RDW Standard Deviation 44.9 fL (36.4-46.3); Red Blood Count 3.89 M/uL (4.7-6.1)
[2019-12-31] MEDS: PRAMIPEXOLE DIHYDROCHLO 0.5 MG TAB PO SCH (07:45)
[2019-12-31] MEDS: PSYLLIUM 58.6% POWDER PACKET PO SCH (07:46)
[2019-12-31] MEDS: BICALUTAMIDE 50 MG TAB PO SCH (07:46)
[2019-12-31] MEDS: ENOXAPARIN INJ 40 MG/0.4 ML SYR SQ SCH (07:46)
[2019-12-31] MEDS: CARBIDOPA/LEVODOPA 25/100MG TAB PO SCH ×3 (07:46→16:57)
[2019-12-31] MEDS: CYANOCOBALAMIN 500 MCG TABLET (VITAMIN B-12) PO SCH (07:47)
[2019-12-31] MEDS: CHOLECALCIFEROL 1,000 UNITS 25 MCG TAB PO SCH (07:47)
[2019-12-31 08:06] LABS: BUN Creatinine Ratio 36.8 (10-20); Calcium 9.5 mg/dl (8.5-10.1); Est GFR (African American) 95.1; Est GFR (Non-African American) 82.1; Potassium 4.1 mmol/L (3.5-5.1)
--- NOTE | 2019-12-31 15:27 | Hospitalist Progress Note ---
Date of Service December 31, 2019 Assessment & Plan (1) Syncope: Likely orthostatic hypotension vs. possible bradycardia-induced hypotension. Facility reports HR in the 30s at time of event, however was in the 60s with EMS monitoring. PRP, trop WNL. TSH, B12, folate, & B1 checked with last admission and WNL. - plan for discharge to [place] on hospice on Thursday (2) Goals of care, counseling/discussion: Discontinued statin to reduce pill burden - discussed with his who agrees with this. (3) Prostate cancer: Follows with urology, s/p GnRH agonists, radiation therapy and XRT in 2009. Per report, he had lung involvement; however, PET CT chest from 05/2019 showed no active lung disease. - Continue bicalutamide daily as prescribed. Also receives Eligard injections [id number]. Could consider holding bicalutamide given side effect of weaknes but discussed with his and she wishes to discuss thsi once discharged to [place]. (4) Parkinson's disease: Initially diagnosed in 2009. Last seen in the hospital by Dr. Baca on 12/07/2019. - Continue home meds - seems to be a dominant reason for his overall decline (5) Dementia: Non-verbal at baseline having urinary and bowel incontinence Discussed stopping Aricept with his but she reports they tried this at [place] but noticed he was worse off this medication. (6) DVT prophylaxis: Lovenox 40 mg QAM daily Admission and Anticipated Discharge Date Admission Date: December 13, 2019 Anticipated date of discharge: 01/03/20 Subjective Unable to get history from patient due to cognitive status. Discussed care with RN. Eating and drinking well with assistance, having bowel movements, taking medications as prescribed. Review of Systems Review of Systems: Unobtainable due to cognitive status Physical Exam Constitutional: + frail appearing; not lethargic Respiratory: normal respiratory effort; no respiratory distress Neurologic: awake Speech / Cognition: + abnormal speech (minimally verbal but remains confused, unable to answer any questions) Psychiatric: Orientation: alert; + not oriented to person, + not oriented to place and + not oriented to time Results & Data Results & Data ([facility]) Vital Signs (Past 12 Hours) Vital Signs Temp Pulse Resp BP Pulse Ox 12/31/19 07:23 36.5 C 72 18 128/67 97 PG Care Time/CCT Total # of Minutes Spent Total Time Spent with Patient: Total time spent is greater than 50% in coordination of care (as documented) at patient's floor/unit and/or counseling patient: Coding Level of Care Code 04575 Subseq Hosp Care Lvl 1 Diagnoses Syncope R55 Syncope type: unspecified Goals of care, counseling/discussion Z71.89 Prostate cancer C61 Parkinson's disease G20 Dementia F03.90 DVT prophylaxis Z29.9 (1) Syncope Syncope type: unspecified Qualified Code(s): R55 - Syncope and collapse
[2019-12-31] MEDS: ASPIRIN 81 MG ECTAB PO SCH (20:32)
[2019-12-31] MEDS: DONEPEZIL HCL 5 MG TAB PO SCH (20:32)
[2020-01-01] MEDS: CARBIDOPA/LEVODOPA 25/100MG TAB PO SCH ×3 (07:26→16:54)
[2020-01-01] MEDS: PRAMIPEXOLE DIHYDROCHLO 0.5 MG TAB PO SCH (07:26)
[2020-01-01] MEDS: ENOXAPARIN INJ 40 MG/0.4 ML SYR SQ SCH (07:26)
[2020-01-01] MEDS: BICALUTAMIDE 50 MG TAB PO SCH (07:26)
[2020-01-01] MEDS: PSYLLIUM 58.6% POWDER PACKET PO SCH (07:26)
[2020-01-01] MEDS: CYANOCOBALAMIN 500 MCG TABLET (VITAMIN B-12) PO SCH (07:26)
[2020-01-01] MEDS: CHOLECALCIFEROL 1,000 UNITS 25 MCG TAB PO SCH (07:26)
--- NOTE | 2020-01-01 13:19 | Hospitalist Progress Note ---
Date of Service January 01, 2020 Assessment & Plan (1) Syncope: Likely orthostatic hypotension vs. possible bradycardia-induced hypotension. Facility reports HR in the 30s at time of event, however was in the 60s with EMS monitoring. PRP, trop WNL. TSH, B12, folate, & B1 checked with last admission and WNL. - plan for discharge to [place] on hospice on Thursday (2) Goals of care, counseling/discussion: Discontinued statin to reduce pill burden - discussed with his who agrees with this. She wishes to keep bicalutamide and donepezil continued at this time until he has some continuity of care at [place]. (3) Prostate cancer: Follows with urology, s/p GnRH agonists, radiation therapy and XRT in 2009. Per report, he had lung involvement; however, PET CT chest from 05/2019 showed no active lung disease. - Continue bicalutamide daily as prescribed. Also receives Eligard injections [id number]. Could consider holding bicalutamide given side effect of weakness but discussed with his and she wishes to discuss this once discharged to [place]. (4) Parkinson's disease: Initially diagnosed in 2009. Last seen in the hospital by Dr. Baca on 12/07/2019. - Continue home meds - seems to be a dominant reason for his overall decline (5) Dementia: Non-verbal at baseline having urinary and bowel incontinence Discussed stopping Aricept with his but she reports they tried this at [place] but noticed he was worse off this medication. (6) DVT prophylaxis: Lovenox 40 mg QAM daily Admission and Anticipated Discharge Date Admission Date: December 13, 2019 Subjective Unable to get history from patient due to cognitive status. Discussed care with RN. Eating and drinking well with assistance, having bowel movements, taking medications as prescribed. Review of Systems Review of Systems: Unobtainable due to cognitive status Physical Exam Constitutional: + frail appearing; not lethargic Respiratory: normal respiratory effort; no respiratory distress Skin: no rashes, warm and dry Neurologic: awake Speech / Cognition: + abnormal speech (minimally verbal but remains confused, unable to answer any questions) Psychiatric: Orientation: alert; + not oriented to person, + not oriented to place and + not oriented to time Results & Data Results & Data ([facility]) Vital Signs (Past 12 Hours) Vital Signs Temp Pulse Resp BP Pulse Ox 01/01/20 07:33 36.6 C 69 16 114/68 98 PG Care Time/CCT Total # of Minutes Spent Total Time Spent with Patient: Total time spent is greater than 50% in coordination of care (as documented) at patient's floor/unit and/or counseling patient: Coding Level of Care Code 73189 Subseq Hosp Care Lvl 1 Diagnoses Syncope R55 Syncope type: unspecified Goals of care, counseling/discussion Z71.89 Prostate cancer C61 Parkinson's disease G20 Dementia F03.90 DVT prophylaxis Z29.9 (1) Syncope Syncope type: unspecified Qualified Code(s): R55 - Syncope and collapse
[2020-01-01] MEDS: ASPIRIN 81 MG ECTAB PO SCH (21:16)
[2020-01-01] MEDS: DONEPEZIL HCL 5 MG TAB PO SCH (21:16)
[2020-01-02] MEDS: ENOXAPARIN INJ 40 MG/0.4 ML SYR SQ SCH (08:43)
[2020-01-02] MEDS: CYANOCOBALAMIN 500 MCG TABLET (VITAMIN B-12) PO SCH (08:44)
[2020-01-02] MEDS: CARBIDOPA/LEVODOPA 25/100MG TAB PO SCH ×3 (08:44→17:30)
[2020-01-02] MEDS: PRAMIPEXOLE DIHYDROCHLO 0.5 MG TAB PO SCH (08:45)
[2020-01-02] MEDS: PSYLLIUM 58.6% POWDER PACKET PO SCH (08:45)
[2020-01-02] MEDS: BICALUTAMIDE 50 MG TAB PO SCH (08:46)
[2020-01-02] MEDS: CHOLECALCIFEROL 1,000 UNITS 25 MCG TAB PO SCH (08:46)
--- NOTE | 2020-01-02 14:17 | Hospitalist Progress Note ---
Date of Service January 02, 2020 Assessment & Plan (1) Syncope: Likely orthostatic hypotension vs. possible bradycardia-induced hypotension. Facility reports HR in the 30s at time of event, however was in the 60s with EMS monitoring. PRP, trop WNL. TSH, B12, folate, & B1 checked with last admission and WNL. No further work-up needed - plan for discharge to [facility] on hospice on Thursday (2) Goals of care, counseling/discussion: Discontinued statin to reduce pill burden - discussed with his who agrees with this. She wishes to keep bicalutamide and donepezil continued at this time until he has some continuity of care at [facility]. (3) Prostate cancer: Follows with urology, s/p GnRH agonists, radiation therapy and XRT in 2009. Per report, he had lung involvement; however, PET CT chest from 05/2019 showed no active lung disease. - Continue bicalutamide daily as prescribed. Also receives Eligard injections [id number]. Could consider holding bicalutamide given side effect of weakness but discussed with his and she wishes to discuss this once discharged to [facility]. (4) Parkinson's disease: Initially diagnosed in 2009. Last seen in the hospital by Dr. Baca on 12/07/2019. - Continue home meds with Sinemet - seems to be a dominant reason for his overall decline (5) Dementia: Non-verbal at baseline having urinary and bowel incontinence Discussed stopping Aricept with his but she reports they tried this at [facility] but noticed he was worse off this medication. (6) DVT prophylaxis: Lovenox 40 mg QAM daily Admission and Anticipated Discharge Date Admission Date: December 13, 2019 Anticipated date of discharge: 01/03/20 Subjective Pt says "hello" but otherwise is unable to answer any my questions. He just stares off out the window. Discussed his care with nursing-no new concerns. Discussed care with assistant case manager-plan is for discharge to his personal correction with hospice tomorrow. Review of Systems Review of Systems: Unobtainable due to cognitive status Physical Exam Constitutional: WD/WN, vitals as above Eyes: + anicteric sclerae Neck: trachea midline, no thyromegaly Respiratory: normal respiratory effort, lungs clear to auscultation Cardiovascular: RRR, no murmur, no edema Chest (Breasts): Chest: normal inspection of chest Gastrointestinal (Abdomen): normal bowel sounds, soft, nontender, no hepatosplenomegaly Musculoskeletal: Extremities: extremities normal to inspection; no cyanosis and no clubbing Skin: no rashes, warm and dry Neurologic: awake Psychiatric: Orientation: alert; + not oriented to person, + not oriented to place, + not oriented to time and + uncooperative Eye Contact: + poor eye contact Affect: + flat affect Lymphatic: no lymphedema Results & Data Results & Data ([facility]) Vital Signs (Past 12 Hours) Vital Signs Temp Pulse Pulse Resp BP Pulse Ox 01/02/20 11:00 36.0 C L 69 18 91/53 L 99 01/02/20 07:00 36.6 C 70 18 123/66 99 01/02/20 03:44 36.5 C 62 18 139/63 95 PG Care Time/CCT Total # of Minutes Spent Total Time Spent with Patient: Total time spent is greater than 50% in coordination of care (as documented) at patient's floor/unit and/or counseling patient: Coding Level of Care Code 45747 Subseq Hosp Care Lvl 1 Diagnoses Syncope R55 Syncope type: unspecified Goals of care, counseling/discussion Z71.89 Prostate cancer C61 Parkinson's disease G20 Dementia F03.90 DVT prophylaxis Z29.9 (1) Syncope Syncope type: unspecified Qualified Code(s): R55 - Syncope and collapse
[2020-01-02] MEDS: DONEPEZIL HCL 5 MG TAB PO SCH (20:08)
[2020-01-02] MEDS: ASPIRIN 81 MG ECTAB PO SCH (20:08)
[2020-01-03 04:39] VITALS: O2SAT 99
[2020-01-03 07:27] VITALS: BP 125/73; PULSE 67; TEMP 98.2
[2020-01-03] MEDS: PRAMIPEXOLE DIHYDROCHLO 0.5 MG TAB PO SCH (09:04)
[2020-01-03] MEDS: CARBIDOPA/LEVODOPA 25/100MG TAB PO SCH ×2 (09:04→12:35)
[2020-01-03] MEDS: PSYLLIUM 58.6% POWDER PACKET PO SCH (09:05)
[2020-01-03] MEDS: BICALUTAMIDE 50 MG TAB PO SCH (09:05)
[2020-01-03] MEDS: CYANOCOBALAMIN 500 MCG TABLET (VITAMIN B-12) PO SCH (09:05)
[2020-01-03] MEDS: CHOLECALCIFEROL 1,000 UNITS 25 MCG TAB PO SCH (09:05)
--- NOTE | 2020-01-03 11:21 | Discharge Summary ---
Date of Service January 03, 2020 Admission HPI Per Admitting Provider 79 y/o M who was brought to [facility] from [facility] after a syncopal episode. Pt is nonverbal and supplies no hx. Per ED PA who spoke with , staff was reportedly trying to help pt get out of a chair when he crumpled to the ground. His heart rate was checked at that time and was reported to be in the 30s, however EMS states that it was in the 60s during their transport and monitoring. While in the ED, pt had an episode of emesis that lead to a choking/coughing episode. Pt was d/c'd from [facility] on 12/06 after workup from syncopal episode. ECHO, imaging, B12, folate, TSH, B1 WNL. He was seen by neurology at that time as well. Pt was seen in the ED on 12/10 s/p fall. Workup negative and returned to [facility] Principal Diagnosis Syncope, end-stage dementia Discharge Exam Constitutional WD/WN, vitals as above Eyes + anicteric sclerae Neck trachea midline, no thyromegaly Respiratory normal respiratory effort, lungs clear to auscultation Cardiovascular RRR, no murmur, no edema Chest (Breasts) Chest: normal inspection of chest Gastrointestinal (Abdomen) normal bowel sounds, soft, nontender, no hepatosplenomegaly Musculoskeletal Extremities: extremities normal to inspection; no cyanosis and no clubbing Skin no rashes, warm and dry Neurologic awake Psychiatric Orientation: alert; + not oriented to person, + not oriented to place, + not oriented to time and + uncooperative Eye Contact: + poor eye contact Affect: + flat affect Lymphatic no lymphedema Discharge Data Allergies Allergy/AdvReac Type Severity Reaction Status Date / Time No Known Allergies Allergy Verified 12/13/19 11:37 Consultations 12/13/19 13:32 ED Decision to Admit Stat 12/13/19 15:17 Consult Case Management - Discharge Planning Routine 12/14/19 08:02 Consult Palliative Care Routine Ordered Studies 12/13/19 11:37 CT head/brain wo con Stat 12/13/19 11:59 CT abd pelvis wo con Stat Hospital Course (1) Syncope: Likely orthostatic hypotension vs. possible bradycardia-induced hypotension. Facility reports HR in the 30s at time of event, however was in the 60s with EMS monitoring. PRP, trop WNL. TSH, B12, folate, & B1 checked with last admission and WNL. No further work-up needed - plan for discharge to [facility] on hospice on Thursday (2) Goals of care, counseling/discussion: Discontinued statin to reduce pill burden - discussed with his who agrees with this. She wishes to keep bicalutamide and donepezil continued at this time until he has some continuity of care at [facility]. (3) Prostate cancer: Follows with urology, s/p GnRH agonists, radiation therapy and XRT in 2009. Per report, he had lung involvement; however, PET CT chest from 05/2019 showed no active lung disease. - Continue bicalutamide daily as prescribed. Also receives Eligard injections [id number]. Could consider holding bicalutamide given side effect of weakness but discussed with his and she wishes to discuss this once discharged to [facility]. (4) Parkinson's disease: Initially diagnosed in 2009. Last seen in the hospital by Dr. Baca on 12/07/2019. - Continue home meds with Sinemet and pimavanserin - seems to be a dominant reason for his overall decline (5) Dementia: Non-verbal at baseline having urinary and bowel incontinence Discussed stopping Aricept with his but she reports they tried this at [facility] but noticed he was worse off this medication. (6) DVT prophylaxis: Lovenox 40 mg QAM daily was provided -dc to [facility] with Hospice today Total Time Total Time Spent Total Time Spent (In Minutes): 20 min Total Time Includes: Examination of the Patient, Discharge Planning and Medication Reconciliation Discharge Plan Discharge Items Patient Disposition: Hospice - Medical Facility Reason For Visit: SYNCOPE, POSSIBLE PNA Discharge Diagnosis: syncope, possible Pneumonia, End stage dementia Condition on Discharge: Fair Activity: As commented below Bathing: No limitations Exercise/Sports: As tolerated Non-emergency contact: Primary Care Provider Call non-emergency contact if: you have any medication questions Follow-up/Referrals: Natalia bell,[place] [Primary Care Provider] - Diet: Regular Addtl Attending Provider Instructions: Mr. Bender was admitted with recurrent syncope, possible pneumonia. He was treated and has significant weakness, ambulatory dysfunction, and end stage dementia. He will be discharged to his personal longterm with Hospice. Pending Studies at Discharge: No Stand-Alone Forms: My [facility] Skilled Items Patient informed of condition?: No DNR: Yes Discharge Level of Care: Other Communicable Disease: No Discharge Prognosis: Stable Lines: None Urinary Catheter: No Medications and DC Order Prescriptions: Continued acetaminophen 500 mg tablet 500 - 1,000 mg PO TID PRN (Reason: fever) Qty: 90 RF: 5 aspirin 81 mg tablet,delayed release (DR/EC) 81 mg PO HS RF: 0 cyanocobalamin (vitamin B-12) 1,000 mcg tablet 1,000 mcg PO QAM Qty: 90 RF: 0 psyllium husk 3.4 gram/5.4 gram powder 3.4 g PO QAM RF: 0 metronidazole 0.75 % cream 1 appln TOP QAM RF: 0 Nuplazid 34 mg capsule 34 mg PO QAM RF: 0 cholecalciferol (vitamin D3) 1,000 unit capsule 1,000 units PO QAM RF: 0 bicalutamide 50 mg tablet 50 mg PO QAM RF: 0 pramipexole 1.5 mg tablet extended release 24 hr 1.5 mg PO QAM RF: 0 donepezil [Aricept] 5 mg tablet 5 mg PO HS RF: 0 carbidopa-levodopa 25-100 mg tablet 1.5 tab PO TIDM RF: 0 Discontinued pravastatin 40 mg tablet 40 mg PO HS RF: 0 Discharge Orders: Discharge Order (Routine); Ordered 01/03/20 Ordered By: Hanny Navarro Admission Data Admit Date/Time: 12/13/19 13:55 Attending Provider: Hanny Navarro Admit Provider: Amanda Ambrosio Primary Care Provider: [place] Other Providers: Amos Grey ; Anitra Hernandez ; Amanda Ambrosio ; Luz Maria Gonsales ; Lio Ponce ; [place] Other Interventions: Discharge Summary Assessment (RN) Last Done: 12/28/19 10:17 Coding Level of Care Code D/C Day Management <30 mins Diagnoses Syncope R55 Syncope type: unspecified Goals of care, counseling/discussion Z71.89 Prostate cancer C61 Parkinson's disease G20 Dementia F03.90 DVT prophylaxis Z29.9
== END 2020-01-03 13:01 | disposition hospice, inpatient (51) | DRG 177 ==
LOC: ED 11:07 → 2W 13:55 → SUATTDRO 13:55 → 2W 14:45